=== PATIENT | male | born 1935 | race Caucasian/White ===

== ENCOUNTER 2019-02-12 09:11 | Outpatient (CLI) | payer MEDICARE, SELFPAY ==
[2019-02-12 12:35] LABS: Alanine Aminotransferase 16 U/L (4-50); Albumin Level 3.8 g/dL (3.5-5.1); Alkaline Phosphatase 36 U/L (38-126); Aspartate Amino Transferase 27 U/L (17-59); Bilirubin,Total 0.6 mg/dL (0.2-1.3); Blood Urea Nitrogen 30 mg/dL (9-20); Calcium 9.3 mg/dL (8.4-10.2); Carbon Dioxide 26 mmol/L (22-30); Chloride 107 mmol/L (98-107); Cholesterol 153 mg/dL (0-200); Estimated Glomerular Filt Rate 53; Glucose 92 mg/dL (75-110); HDL Direct 37 mg/dL; Sodium 143 mmol/L (137-145); Triglycerides 85 mg/dL (<150)
[2019-02-12 12:46] LABS: LDL Cholesterol Direct 102 mg/dL
[2019-02-12 12:50] LABS: Vitamin D 25 Hydroxy 65.6 ng/mL
[2019-02-12 13:05] LABS: Prostate Specific Antigen 2.1 ng/mL (< OR = 4.0)
== END 2019-02-12 09:12 | disposition home or self-care (01) ==
LOC: ANHVADLAB 09:13
PROVIDERS: PCP Internal Medicine; Visit Provider Nurse Practitioner
DX: E78.5 Hyperlipidemia, unspecified (principal); C61 Malignant neoplasm of prostate; E55.9 Vitamin D deficiency, unspecified; E03.9 Hypothyroidism, unspecified; I10 Essential (primary) hypertension
CPT/HCPCS: 36415; 80048; 80061; 80076; 82306; 84153; 84443

== ENCOUNTER 2019-12-14 08:01 | Outpatient (CLI) | payer MEDICARE, SELFPAY ==
[2019-12-14 08:42] LABS: Potassium 4.6 mmol/L (3.4-5.0)
[2019-12-14 08:44] LABS: Alanine Aminotransferase 18 U/L (4-50); Alkaline Phosphatase 34 U/L (38-126); Anion Gap 6 mmol/L (8-16); Aspartate Amino Transferase 30 U/L (17-59); Bilirubin,Total 0.8 mg/dL (0.2-1.3); Blood Urea Nitrogen 28 mg/dL (9-20); Calcium 9.2 mg/dL (8.4-10.2); Carbon Dioxide 28 mmol/L (22-30); Chloride 108 mmol/L (98-107); Cholesterol 143 mg/dL (0-200); Estimated Glomerular Filt Rate 48; Glucose 101 mg/dL (75-110); HDL Direct 36 mg/dL; Sodium 142 mmol/L (137-145); Triglycerides 82 mg/dL (<150)
[2019-12-14 08:56] LABS: LDL Cholesterol Direct 90 mg/dL
[2019-12-14 09:13] LABS: Vitamin D 25 Hydroxy 75.6 ng/mL
== END 2019-12-14 08:02 | disposition home or self-care (01) ==
PROVIDERS: PCP Internal Medicine; Visit Provider Nurse Practitioner
DX: E78.5 Hyperlipidemia, unspecified (principal); E55.9 Vitamin D deficiency, unspecified; I10 Essential (primary) hypertension
CPT/HCPCS: 36415; 80048; 80061; 80076; 82306

== ENCOUNTER → 2020-05-23 08:46 | Outpatient (REF) | payer MEDICARE, SELFPAY | LOC: ANHLAB 08:46 | PROVIDERS: PCP Internal Medicine; Visit Provider Nurse Practitioner | DX: C44.719 Basal cell carcinoma of skin of left lower limb, including hip (principal); C44.729 Squamous cell carcinoma of skin of left lower limb, including hip | CPT/HCPCS: 88305; 88331 ==

== ENCOUNTER 2020-08-12 06:59 | Outpatient (CLI) | payer MEDICARE, SELFPAY ==
[2020-08-12 07:44] LABS: Anion Gap 9 mmol/L (8-16); Blood Urea Nitrogen 29 mg/dL (9-20); Calcium 9.2 mg/dL (8.4-10.2); Carbon Dioxide 23 mmol/L (22-30); Chloride 112 mmol/L (98-107); Cholesterol 144 mg/dL (0-200); Estimated Glomerular Filt Rate 48; Glucose 94 mg/dL (75-110); HDL Direct 39 mg/dL; Sodium 144 mmol/L (137-145); Triglycerides 71 mg/dL (<150)
[2020-08-12 07:55] LABS: LDL Cholesterol Direct 78 mg/dL
== END 2020-08-12 07:00 | disposition home or self-care (01) ==
LOC: ANHLAB 07:02
PROVIDERS: PCP Internal Medicine; Visit Provider Internal Medicine
DX: E03.9 Hypothyroidism, unspecified (principal); I10 Essential (primary) hypertension; E78.5 Hyperlipidemia, unspecified
CPT/HCPCS: 36415; 80048; 80061; 84443

== ENCOUNTER 2021-02-15 07:18 | Outpatient (CLI) | payer MEDICARE, SELFPAY ==
[2021-02-15 07:55] LABS: Alanine Aminotransferase 18 U/L (4-50); Albumin Level 4.2 g/dL (3.5-5.1); Alkaline Phosphatase 37 U/L (38-126); Anion Gap 8 mmol/L (8-16); Aspartate Amino Transferase 27 U/L (17-59); Bilirubin,Total 0.5 mg/dL (0.2-1.3); Blood Urea Nitrogen 27 mg/dL (9-20); Calcium 9.2 mg/dL (8.4-10.2); Carbon Dioxide 23 mmol/L (22-30); Chloride 107 mmol/L (98-107); Cholesterol 167 mg/dL (0-200); Estimated Glomerular Filt Rate 52; Glucose 97 mg/dL (65-110); HDL Direct 40 mg/dL; Potassium 4.1 mmol/L (3.4-5.0); Sodium 138 mmol/L (137-145); Triglycerides 88 mg/dL (<150)
[2021-02-15 08:05] LABS: LDL Cholesterol Direct 99 mg/dL
[2021-02-15 08:25] LABS: Prostate Specific Antigen 3.5 ng/mL (< OR = 4.0)
[2021-02-15 08:51] LABS: Vitamin D 25 Hydroxy 70.6 ng/mL
== END 2021-02-15 07:19 | disposition home or self-care (01) ==
PROVIDERS: PCP Internal Medicine; Visit Provider Internal Medicine
DX: N18.30 Chronic kidney disease, stage 3 unspecified (principal); E55.9 Vitamin D deficiency, unspecified; E78.5 Hyperlipidemia, unspecified; E03.9 Hypothyroidism, unspecified; Z85.46 Personal history of malignant neoplasm of prostate
CPT/HCPCS: 36415; 80053; 80061; 82306; 84153; 84443

== ENCOUNTER → 2021-03-07 15:02 | Outpatient (REF) | payer MEDICARE, SELFPAY | LOC: ANHLAB 15:02 | PROVIDERS: PCP Internal Medicine; Visit Provider Nurse Practitioner | DX: L72.0 Epidermal cyst (principal) | CPT/HCPCS: 88304 ==

== ENCOUNTER 2021-04-06 08:00 | Outpatient (CLI) | payer MEDICARE, SELFPAY | END 2021-04-06 08:01 | disposition home or self-care (01) | LOC: ANHLAB 08:03 | PROVIDERS: PCP Internal Medicine; Visit Provider Nurse Practitioner | DX: E03.9 Hypothyroidism, unspecified (principal) | CPT/HCPCS: 36415; 84443 ==

== ENCOUNTER 2021-08-24 07:12 | Outpatient (CLI) | payer MEDICARE, SELFPAY ==
[2021-08-24 07:55] LABS: Alanine Aminotransferase 16 U/L (6-50); Albumin Level 3.8 g/dL (3.5-5.1); Alkaline Phosphatase 36 U/L (38-126); Anion Gap 5 mmol/L (8-16); Aspartate Amino Transferase 30 U/L (17-59); Bilirubin,Total 0.6 mg/dL (0.2-1.3); Blood Urea Nitrogen 29 mg/dL (9-20); Calcium 8.7 mg/dL (8.4-10.2); Carbon Dioxide 25 mmol/L (22-30); Chloride 110 mmol/L (98-107); Cholesterol 164 mg/dL (0-200); Estimated Glomerular Filt Rate 48; Glucose 103 mg/dL (65-110); HDL Direct 38 mg/dL; Potassium 4.1 mmol/L (3.4-5.0); Sodium 140 mmol/L (137-145); Triglycerides 75 mg/dL (<150)
[2021-08-24 08:19] LABS: LDL Cholesterol Direct 94 mg/dL
[2021-08-24 08:36] LABS: Prostate Specific Antigen 2.4 ng/mL (< OR = 4.0)
== END 2021-08-24 07:13 | disposition home or self-care (01) ==
LOC: ANHLAB 07:16
PROVIDERS: PCP Internal Medicine; Visit Provider Nurse Practitioner
DX: N18.30 Chronic kidney disease, stage 3 unspecified (principal); E78.5 Hyperlipidemia, unspecified; C61 Malignant neoplasm of prostate; E03.9 Hypothyroidism, unspecified
CPT/HCPCS: 36415; 80053; 80061; 84153; 84443

== ENCOUNTER 2022-06-19 09:27 | Outpatient (CLI) | payer MEDICARE, SELFPAY ==
[2022-06-19 10:09] LABS: Alanine Aminotransferase 20 U/L (6-50); Albumin Level 4.3 g/dL (3.5-5.1); Alkaline Phosphatase 36 U/L (38-126); Anion Gap 5 mmol/L (8-16); Aspartate Amino Transferase 28 U/L (17-59); Bilirubin,Total 0.9 mg/dL (0.2-1.3); Blood Urea Nitrogen 30 mg/dL (9-20); Carbon Dioxide 27 mmol/L (22-30); Chloride 107 mmol/L (98-107); Cholesterol 185 mg/dL (0-200); Estimated Glomerular Filt Rate 52; Glucose 98 mg/dL (65-110); HDL Direct 38 mg/dL; Potassium 4.5 mmol/L (3.4-5.0); Sodium 139 mmol/L (137-145); Triglycerides 112 mg/dL (<150)
[2022-06-19 10:21] LABS: LDL Cholesterol Direct 110 mg/dL
[2022-06-19 10:30] LABS: Vitamin D 25 Hydroxy 92.6 ng/mL
[2022-06-19 10:42] LABS: Prostate Specific Antigen 2.7 ng/mL (< OR = 4.0)
== END 2022-06-19 09:28 | disposition home or self-care (01) ==
PROVIDERS: PCP Family Medicine; Visit Provider Nurse Practitioner
DX: C61 Malignant neoplasm of prostate (principal); N18.30 Chronic kidney disease, stage 3 unspecified; E78.5 Hyperlipidemia, unspecified; E03.9 Hypothyroidism, unspecified; Z13.21 Encounter for screening for nutritional disorder
CPT/HCPCS: 36415; 80053; 80061; 82306; 84153; 84443; G0103

== ENCOUNTER 2023-05-02 10:47 | Outpatient (CLI) | payer MEDICARE, SELFPAY ==
[2023-05-02 11:40] LABS: Basophils Absolute Auto 0.1 K/mm3 (0.0-0.1); Basophils Percent Auto 0.7 % (0.2-1.2); Eosinophils Absolute Auto 0.1 K/mm3 (0-0.3); Eosinophils Percent Auto 1.9 % (0-4.4); Hematocrit 38.9 % (42.0-52.0); Immature Granulocyte Absolute 0.03 K/mm3 (0.00-0.031); Immature Granulocyte Percent A 0.4 % (0-0.5); Lymphocytes Absolute Auto 1.39 K/mm3 (0.9-3.2); Lymphocytes Percent Auto 20.2 % (18.3-44.2); Mean Corpuscular HGB Conc 30.8 g/dl (32-36); Mean Corpuscular Hemoglobin 30.8 pg (26-34); Monocytes Absolute Auto 0.7 K/mm3 (0.1-0.6); Monocytes Percent Auto 9.7 % (2.6-8.5); Neutrophils Absolute Auto 4.6 K/mm3 (1.3-6.7); Neutrophils Percent Auto 67.1 % (45.5-73.1); Platelet Count Result 243 k/mm3 (150-375); Red Blood Count 3.89 M/mm3 (4.6-6.20); Red Cell Distribution Width 14.7 % (11.5-14.5); White Blood Count 6.9 K/mm3 (4.5-10.0)
[2023-05-02 12:01] LABS: Alanine Aminotransferase 13 U/L (6-50); Albumin Level 4.2 g/dL (3.5-5.1); Alkaline Phosphatase 38 U/L (38-126); Anion Gap 10 mmol/L (8-16); Aspartate Amino Transferase 24 U/L (17-59); Bilirubin,Total 0.7 mg/dL (0.2-1.3); Blood Urea Nitrogen 69 mg/dL (9-20); Calcium 9.2 mg/dL (8.4-10.2); Carbon Dioxide 22 mmol/L (22-30); Chloride 115 mmol/L (98-107); Estimated Glomerular Filt Rate 11; Glucose 93 mg/dL (65-110); Potassium 4.7 mmol/L (3.4-5.0); Sodium 147 mmol/L (137-145)
[2023-05-02 12:57] LABS: Free T4 Free Thyroxine 0.85 ng/mL (0.78-2.19)
== END 2023-05-02 10:48 | disposition home or self-care (01) ==
LOC: ANHLAB 10:50
PROVIDERS: PCP Nurse Practitioner; Visit Provider Nurse Practitioner
DX: E03.9 Hypothyroidism, unspecified (principal); E78.1 Pure hyperglyceridemia; I10 Essential (primary) hypertension; Z85.46 Personal history of malignant neoplasm of prostate; Z91.199 Patient's noncompliance with other medical treatment and regimen due to unspecified reason; E78.5 Hyperlipidemia, unspecified; E55.9 Vitamin D deficiency, unspecified
CPT/HCPCS: 36415; 80053; 84439; 84443; 85025

== ENCOUNTER 2023-06-01 07:49 | Outpatient (CLI) | payer MEDICARE, SELFPAY ==
--- NOTE | ~2023-06-01 | US_ITS ---
US renal BI DATE: 06/01/2023 08:17 INDICATION: Acute renal failure TECHNIQUE: Real-time imaging of kidneys and urinary bladder COMPARISON: No prior examinations are available from PACS at this time. FINDINGS: There is prominent bilateral hydronephrosis. There is thinning of the renal cortices. Trabeculation and diverticulum formation the bladder is suggested. No intraluminal bladder mass lesio n is evident. IMPRESSION: Prominent bilateral hydronephrosis, bilateral renal atrophy Urinary bladder trabeculation, diverticulum formation Reviewed, dictated and finalized at [facility]. Reviewed, dictated and finalized at location A.
== END 2023-06-01 07:50 ==
LOC: MICIMG 07:50
PROVIDERS: PCP Nurse Practitioner; Visit Provider Internal Medicine Nephrology
DX: N17.9 Acute kidney failure, unspecified (principal); N13.30 Unspecified hydronephrosis; N26.1 Atrophy of kidney (terminal); N32.89 Other specified disorders of bladder
CPT/HCPCS: 76775

== ENCOUNTER 2023-06-03 09:17 | Inpatient (IN) | payer MEDICARE, SELFPAY ==
[2023-06-03] VITALS (27 sets, daily range): BP systolic 149–185; BP diastolic 73–96; PULSE 75–88; RESP 10–20; TEMP 36.3–36.8; O2SAT 99–100; BMI 25.1
--- NOTE | ~2023-06-03 | MR_ITS ---
EXAMINATION: MRA brain wo con DATE: 06/06/2023 11:00 INDICATION: Left hemiparesis. Transient ischemic attack. TECHNIQUE: Magnetic resonance angiography (MRA) of the brain was performed without intravenous contra st with T1-weighted SPGR by the 3D [id number] technique. Maximum intensity projection 3D-reconstr uctions were obtained. COMPARISON: Head CT 06/05/2023 FINDINGS: The vertebral arteries are codominant. There is no significant stenosis of basilar artery or the post erior cerebral arteries. Left posterior communicator artery is normal. A right posterior communicatin g artery is not identified. There is no significant stenosis of the intracranial internal carotid art eries or anterior or middle cerebral arteries. Anterior communicating artery is normal. There is no a neurysm. IMPRESSION: 1. Normal MRA. Reviewed, dictated and finalized at location A. IMPRESSION: 1. Normal MRA.
--- NOTE | ~2023-06-03 | MR_ITS ---
EXAMINATION: MR brain/brain stem wo con DATE: 06/06/2023 11:00 INDICATION: Stroke. TECHNIQUE: Magnetic resonance imaging (MRI) of the brain and brainstem was performed without intraven ous contrast. COMPARISON: Head CT 06/05/2023 FINDINGS: There are scattered areas of nonspecific increased T2-weighted signal intensity in the cere bral white matter. There is no intracranial hemorrhage, acute infarction, or abnormal intracranial ma ss lesion. The ventricles are normal in size. The orbits are normal. The paranasal sinuses are clear. The mastoid air cells are normal. IMPRESSION: 1. Extensive nonspecific cerebral white matter disease, which likely represents chronic small vessel ischemic disease. Reviewed, dictated and finalized at location A.
--- NOTE | ~2023-06-03 | CT_ITS ---
EXAMINATION: CT brain wo con DATE: 06/05/2023 16:31 INDICATION: Stroke. TECHNIQUE: Computed tomography (CT) of the head was performed without intravenous contrast. The mA wa s adjusted according to patient size. Iterative reconstruction technique was employed. The dose-lengt h product was 605.33 mGy-cm. COMPARISON: Head CT 06/05/2023 at 2:48 PM FINDINGS: There is no intracranial hemorrhage, acute infarction, or abnormal intracranial mass lesion . The ventricles are normal in size. The orbits are normal. There is mild mucosal thickening in the p aranasal sinuses. The mastoid air cells are normal. There is cerumen in left external auditory canal. There is a 7 mm subcutaneous cyst in left cheek. IMPRESSION: 1. Unchanged extensive nonspecific cerebral white matter disease, which likely represents chronic sma ll vessel ischemic disease. Reviewed, dictated and finalized at location A. IMPRESSION: 1. Unchanged extensive nonspecific cerebral white matter disease, which likely represents chronic small vessel ischemic disease.
--- NOTE | ~2023-06-03 | US_ITS ---
EXAMINATION: US renal BI DATE: 06/04/2023 10:11 INDICATION: Acute on chronic kidney insufficiency. Hydronephrosis. TECHNIQUE: Multiple ultrasound grayscale images of the kidneys were obtained. COMPARISON: 06/01/2023 FINDINGS: The right kidney measures 10.3 x 4.5 x 4.4 cm. The left kidney measures 11.3 x 4.4 x 4.3 cm. The kidn eys demonstrate normal echogenicity with diffuse bilateral mild cortical thinning. Unchanged 7 mm ane choic cyst at the periphery of the right kidney. Slight interval decrease in the previously moderate, now mild to moderate bilateral hydronephrosis. There is no hydronephrosis in either kidney. No ston es identified. The bladder is decompressed around a Ho catheter which limits evaluation.. IMPRESSION: 1. Slight improvement in now mild to moderate bilateral hydronephrosis. 2. Bladder decompressed with a Ho catheter which limits evaluation. Reviewed, dictated and finalized at location B.
--- NOTE | ~2023-06-03 | US_ITS ---
EXAMINATION: US carotid duplex BI DATE: 06/06/2023 13:25 INDICATION: Transient ischemic episode with left-sided neurologic deficits. TECHNIQUE: Grayscale, color Doppler, and pulsed Doppler images of the cervical carotid arteries were obtained. The degree of vessel stenosis is placed in one of the following categories: normal, <50%, 5 0-69%, >=70% but less than near-occlusion, near-occlusion, or total occlusion. Note that percent sten osis relative to normal distal artery lumen diameter is indirectly measured from velocity measurement s as described by Edi, et al. Radiology 2003; [id number]. COMPARISON: None. FINDINGS: Incidentally noted 1.6 cm predominantly solid left thyroid nodule which is wider than tall with adan h to ill-defined margins, isoechoic solid component and without echogenic foci (TI-RADS 3, mildly ami picious , FNA if >=2.5 cm, annual followup is >=1.5 cm). RIGHT: The right common carotid artery (CCA) peak systolic velocity (PSV) is 78 cm/s. The right internal car otid artery (ICA) PSV is 82 cm/s. The right ICA end-diastolic velocity (EDV) is 20 cm/s. The right IC A/CCA PSV ratio is 1.1. Grayscale and color Doppler images yield an estimate of <50% diameter reducti on from plaque in the ICA. The external carotid artery (ECA) PSV is 58 cm/s. There is antegrade flow in the right vertebral artery. LEFT: The left CCA PSV is 68 cm/s. The left ICA PSV is 59 cm/s. The left ICA EDV is 20 cm/s. The left ICA/C CA PSV ratio is 0.9. Grayscale and color Doppler images yield an estimate of <50% diameter reduction from plaque in the ICA. The ECA PSV is 75 cm/s. There is antegrade flow in the left vertebral artery. IMPRESSION: 1. <50% stenosis in the right internal carotid artery. 2. <50% stenosis in the left internal carotid artery. 3. 1.6 similar TI RADS 3 left thyroid nodule for which annual follow-up ultrasound would be recommend ed. Reviewed, dictated and finalized at location B. IMPRESSION: 1. <50% stenosis in the right internal carotid artery. 2. <50% stenosis in the left internal carotid artery. 3. 1.6 similar TI RADS 3 left thyroid nodule for which annual follow-up ultraso und would be recommended.
--- NOTE | ~2023-06-03 | XR_ITS ---
EXAMINATION: XR retrograde pyelo w/stent BI DATE: 06/06/2023 14:49 INDICATION: Bilateral internal ureteral stent placement TECHNIQUE: Fluoroscopic images from a bilateral internal ureteral stent placement are submitted for [employer] [employer]. 73 seconds of fluoroscopy time. 58 fluoroscopic images FINDINGS: There are bilateral double-J internal ureteral stent projecting in expected position, with proximal C ope loop at the level of the renal pelvis and distal loop in the pelvis within the bladder lumen. IMPRESSION: 1. Bilateral internal ureteral stent placement. Please refer to real-time procedural findings for d etaana. Reviewed, dictated and finalized at location A. IMPRESSION: 1. Bilateral internal ureteral stent placement. Please refer to real-time pro cedural findings for details.
--- NOTE | ~2023-06-03 | CT_ITS ---
EXAMINATION: CT brain wo con DATE: 06/05/2023 14:52 INDICATION: Acute stroke. Left-sided deficits. TECHNIQUE: Computed tomography (CT) of the head was performed without intravenous contrast. The mA wa s adjusted according to patient size. Iterative reconstruction technique was employed. The dose-lengt h product was 605.33 mGy-cm. COMPARISON: None FINDINGS: There are scattered areas of low attenuation in the cerebral white matter. There is no intr acranial hemorrhage, acute infarction, or abnormal intracranial mass lesion. The ventricles are miah l in size. The orbits are normal. The paranasal sinuses are clear. The mastoid air cells are normal. There is cerumen in left external auditory canal. There is a 7 mm subcutaneous cyst in left cheek. IMPRESSION: 1. Extensive nonspecific cerebral white matter disease, which likely represents chronic small vessel ischemic disease. Reviewed, dictated and finalized at location A.
--- NOTE | ~2023-06-03 | US_ITS ---
EXAMINATION: US renal BI DATE: 06/08/2023 15:51 INDICATION: Elevated creatinine. TECHNIQUE: Multiple ultrasound grayscale images of the kidneys were obtained. COMPARISON: Ultrasound 06/04/23 FINDINGS: The right kidney measures 9.3 x 4.5 x 4.0 cm. The left kidney measures 11.0 x 5.1 x 4.7 cm. The kidne ys demonstrate normal parenchymal echogenicity. There is a 10 mm cyst in the right kidney. There is n o hydronephrosis. The bladder is decompressed by a Ho catheter. IMPRESSION: 1. Normal kidney sizes. No hydronephrosis. Reviewed, dictated and finalized at location E.
--- NOTE | 2023-06-03 09:31 | ED.RECABL ---
HPI - Recheck/Abnormal Lab/Rx General Chief Complaint: Recheck/Abnormal Lab/Rx <Joesph Dodd APRN - Last Filed: 06/03/23 15:51> Stated Complaint: abnormal labs <Joesph Dodd APRN - Last Filed: 06/03/23 15:51> Time Seen by Provider: 06/03/23 09:31 <Joesph Dodd APRN - Last Filed: 06/03/23 15:51> Source: patient <Joesph Dodd APRN - Last Filed: 06/03/23 15:51> Mode of arrival: ambulatory <Joesph Dodd APRN - Last Filed: 06/03/23 15:51> Limitations: no limitations <Joesph Dodd APRN - Last Filed: 06/03/23 15:51> History of Present Illness HPI narrative: Matthew is an 88-year-old male patient presenting to the emergency room today with complaints of possible obstruction in the urinary system. He reports he had a ultrasound done at [facility] on May 31 that showed that he has prominent bilateral hydronephrosis, bilateral renal atrophy, urinary bladder trabeculation, and diverticulum formation. States that - nephrology wanted him to come to the ER for further evaluation and have urology consulted. Reports he was able to urinate prior to arrival to the ER today. Denies any pain currently. <Joesph Dodd APRN - Last Filed: 06/03/23 15:51> Related Data Home Medications: Home Medications Medication Instructions Recorded Confirmed cholecalciferol (vitamin D3) 50 50 mcg PO DAILY 02/23/21 06/03/23 mcg (2,000 unit) capsule geriatric multivitamin-min 1 tablet PO DAILY 05/27/23 06/03/23 fenofibrate nanocrystallized 145 145 mg PO DAILY 06/03/23 06/03/23 mg tablet irbesartan 300 mg tablet 300 mg PO DAILY 06/03/23 06/03/23 <Joesph Dodd APRN - Last Filed: 06/03/23 15:51> Allergies/Adverse Reactions: Allergies Allergy/AdvReac Type Severity Reaction Status Date / Time Penicillins Allergy Unknown Unknown Verified 06/03/23 13:41 Sulfa (Sulfonamide Allergy Rash Verified 06/03/23 13:41 Antibiotics) <Joesph Dodd APRN - Last Filed: 06/03/23 15:51> Review of Systems Review of Systems: Pertinent positives per HPI. Patient denies any fever, chills, rash, headache, visual changes, dizziness, cough, runny nose, sore throat, shortness of breath, chest pain, palpitations, nausea, vomiting, diarrhea, constipation, abdominal pain. <Joesph Dodd APRN - Last Filed: 06/03/23 15:51> [facility] Past Medical History Medical History: Medical History (Updated 06/03/23 @ 15:50 by Feli Hendricks PA-C) Chronic anemia Chronic kidney disease Dyslipidemia Hypertension Hypothyroidism Prostate cancer Skin cancer <Joesph Dodd APRN - Last Filed: 06/03/23 15:51> Surgical History Surgical History: Surgical History (Updated 06/03/23 @ 15:29 by Marylin Uriostegui PA-C) History of bilateral inguinal hernia repair History of cholecystectomy History of colonoscopy <Joesph Dodd APRN - Last Filed: 06/03/23 15:51> Family History Family History: Family History Father Patient's father is Family history of alcoholism Hypertension Mother Patient's mother is Son Family history of diabetes mellitus in first degree relative Daughter Family history of diabetes mellitus in first degree relative Father No problems noted. <Joesph Dodd APRN - Last Filed: 06/03/23 15:51> Social History Social History: Social History (Updated 06/03/23 @ 15:29 by Marylin Uriostegui PA-C) Social History: Surrogate medical decision maker: Delicia or Jesus Manuel Aldana, children. Code status: Full code. Smoking status: Never smoker Second hand tobacco smoke exposure: No Alcohol intake: former Alcohol use details: Social alcohol use. Substance use: never Substance use type: does not use Do You Feel Safe in your Home?: Yes Lack of Transportation: No Lack of Food: N
[2023-06-03 10:13] LABS: Basophils Absolute Auto 0.1 K/mm3 (0.0-0.1); Basophils Percent Auto 0.7 % (0.2-1.2); Eosinophils Absolute Auto 0.3 K/mm3 (0-0.3); Eosinophils Percent Auto 3.5 % (0-4.4); Hematocrit 35.6 % (42.0-52.0); Hemoglobin 11.1 g/dL (14.0-18.0); Immature Granulocyte Absolute 0.09 K/mm3 (0.00-0.031); Immature Granulocyte Percent A 1.2 % (0-0.5); Lymphocytes Absolute Auto 2.15 K/mm3 (0.9-3.2); Lymphocytes Percent Auto 28.1 % (18.3-44.2); Mean Corpuscular HGB Conc 31.2 g/dl (32-36); Mean Corpuscular Hemoglobin 30.7 pg (26-34); Mean Corpuscular Volume 98.6 fl (80-100); Mean Platelet Volume 11.5 fl (7.4-10.4); Monocytes Absolute Auto 0.8 K/mm3 (0.1-0.6); Monocytes Percent Auto 10.6 % (2.6-8.5); Neutrophils Absolute Auto 4.3 K/mm3 (1.3-6.7); Neutrophils Percent Auto 55.9 % (45.5-73.1); Platelet Count Result 278 k/mm3 (150-375); Red Blood Count 3.61 M/mm3 (4.6-6.20); Red Cell Distribution Width 15.3 % (11.5-14.5); White Blood Count 7.7 K/mm3 (4.5-10.0)
[2023-06-03 10:33] LABS: Alanine Aminotransferase 14 U/L (6-50); Alkaline Phosphatase 40 U/L (38-126); Anion Gap 11 mmol/L (4-12); Aspartate Amino Transferase 24 U/L (17-59); Bilirubin,Total 0.9 mg/dL (0.2-1.3); Blood Urea Nitrogen 74 mg/dL (9-20); Calcium 8.9 mg/dL (8.4-10.2); Carbon Dioxide 18 mmol/L (22-30); Chloride 112 mmol/L (98-107); Estimated CRCL calculation 9 ml/min; Estimated Glomerular Filt Rate 11; Glucose 91 mg/dL (65-110); Potassium 4.5 mmol/L (3.4-5.0); Sodium 141 mmol/L (137-145)
[2023-06-03 10:35] LABS: Add Urine Microscopic? YES; Appearance Urine Clear (Clear); Bacteria Urine None Seen /hpf; Bilirubin Urine Negative (Negative); Blood Urine 2+ (Negative); Color Urine Yellow (Yellow); Glucose Urine UA Negative (Negative); Ketones Urine Negative (Negative); Leukocyte Esterase Ur Negative LEU/UL (Negative); Nitrate Urine Negative (Negative); Non Pathogenic Casts 0-2; Protein Urine Negative (Negative); RBC Urine 21-50 /hpf (0-2); Specific Grav Ur 1.009 (1.001-1.035); Squamous Epithelial Cell Urine None Seen /hpf (Few); Urobilinogen Urine 0.2 mg/dL (<2.0); WBC Urine 0-5 /hpf (0-3)
--- NOTE | 2023-06-03 13:23 | ADMGEN ---
This patient, Matthew Aldana, was admitted to [facility] Room 306-01. Patient/family oriented to hospital policies and general routines including ID bracelet, bed and alarms, visiting hours, pain management, procedures, bathroom and other care routines, personal items, smoking policy, room service/diet, and visiting hours. Information on how to activate the Rapid Response Team has been discussed. Patient/Family are encouraged to report perceived risks to care and to ask questions if they do not understand what they are told or what they should do.
--- NOTE | 2023-06-03 13:48 | PM.IMHP ---
H&P: HPI History of Present Illness Date/Time: 06/03/23 13:50 Chief Complaint: Abnormal labs. Narrative: This is an 80-year-old male with hypertension, dyslipidemia, benign prostatic hyperplasia, prostate cancer, hypothyroidism, and chronic kidney disease who presented to the emergency department for evaluation of abnormal labs. The patient provides the following history. Labs drawn about a month ago showed a creatinine of 5.10 which is up from his baseline of 1.30 to 1.40 and he was referred to Nephrology for further workup. Renal ultrasound this past Saturday showed prominent bilateral hydronephrosis and bilateral renal atrophy with urinary bladder trabeculation and diverticula information and he was referred to the ER for further workup. With further questioning he reports getting up frequently to urinate and has noticed a decrease in urine output each time. He has been eating and drinking just fine. He denies recent contrast/dye exposure, new medications, dysuria, gross hematuria, foamy urine, back and abdominal pain, fever, nausea, vomiting, and pruritus. BUN and creatinine today are 74 and 5.00 respectively without significant electrolyte abnormalities or acidosis. Urinalysis showed a small amount of blood and was otherwise benign. Ho catheter inserted in the ED yielded 1500 mL of urine. He is being admitted in this setting for further workup. Review of Systems Review of Systems: 12 systems were reviewed and are negative except for as per HPI. [facility] Past Medical History Medical History (Updated 06/03/23 @ 15:50 by Feli Hendricks PA-C) Chronic anemia Chronic kidney disease Dyslipidemia Hypertension Hypothyroidism Prostate cancer Skin cancer Surgical History Surgical History (Updated 06/03/23 @ 15:29 by Marylin Uriostegui PA-C) History of bilateral inguinal hernia repair History of cholecystectomy History of colonoscopy Family History Family History Father Patient's father is Family history of alcoholism Hypertension Mother Patient's mother is Son Family history of diabetes mellitus in first degree relative Daughter Family history of diabetes mellitus in first degree relative Father No problems noted. Social History Social History (Updated 06/03/23 @ 15:29 by Marylin Uriostegui PA-C) Social History: Surrogate medical decision maker: Delicia or Jesus Manuel Aldana, children. Code status: Full code. Smoking status: Never smoker Second hand tobacco smoke exposure: No Alcohol intake: former Alcohol use details: Social alcohol use. Substance use: never Substance use type: does not use Do You Feel Safe in your Home?: Yes Lack of Transportation: No Lack of Food: Never True Current Housing: I Have Housing Concerned About Future Housing: No Difficulty Paying Gas/Electric Bills: No Difficulty Paying for Meds: No Currently Unemployed: No Education: Bachelor's Degree Difficulty w/ Childcare or Family Care: YES Spiritual care concerns: No Meds Home Medications and Allergies Home Medications Medication Instructions Recorded Confirmed Type cholecalciferol (vitamin D3) 50 50 mcg PO DAILY 02/23/21 06/03/23 History mcg (2,000 unit) capsule amlodipine 5 mg tablet 5 mg PO DAILY #30 tabs 04/10/23 06/03/23 Rx geriatric multivitamin-min 1 tablet PO DAILY 05/27/23 06/03/23 History dutasteride 0.5 mg-tamsulosin ER 1 cap PO DAILY #90 caps 06/03/23 06/03/23 Rx 0.4 mg capsule ext.release 24hr mphas fenofibrate nanocrystallized 145 145 mg PO DAILY 06/03/23 06/03/23 History mg tablet irbesartan 300 mg tablet 300 mg PO DAILY 06/03/23 06/03/23 History levothyroxine 25 mcg capsule 25 mcg PO DAILY #90 caps 06/03/23 06/03/23 Rx Allergies Allergy/AdvReac Type Severity Reaction Status Date / Time Penicillins Allergy Unknown Unknown Verified 06/03/23 13:41 Sulfa (Key
--- NOTE | 2023-06-03 15:42 | WPDURCON ---
Assessment and Plan Assessment and plan (1) Bilateral hydronephrosis: Code(s): N13.30 - Unspecified hydronephrosis Status: Acute Assessment and Plan: Prominent bilateral hydronephrosis noted on renal ultrasound completed on 06/01/2023 Ho catheter has been placed Will obtain repeat renal ultrasound tomorrow. May need bilateral ureteral stent placement if no significant improvement, will make NPO at midnight in the event this is required. (2) Urinary retention: Code(s): R33.9 - Retention of urine, unspecified Status: Acute Assessment and Plan: Presumably due to bladder outlet obstruction Ho catheter placed today on arrival with 1000 cc urine output Monitor electrolytes closely for postobstructive diuresis Continue Ho catheter (3) Acute on chronic kidney failure: Code(s): N17.9 - Acute kidney failure, unspecified; N18.9 - Chronic kidney disease, unspecified Status: Acute Assessment and Plan: Baseline creatinine appears to be around 1.3. Creatinine is elevated up to 5.1, likely secondary to above Continue to monitor renal function (4) BPH (benign prostatic hyperplasia): Code(s): N40.0 - Benign prostatic hyperplasia without lower urinary tract symptoms Status: Acute Assessment and Plan: He is on maximum medical therapy with dutasteride-tamsulosin Will likely need to consider outlet procedure given retention/hydro (5) Prostate cancer: Code(s): C61 - Malignant neoplasm of prostate Status: Acute Assessment and Plan: Low risk prostate cancer on active surveillance Urology Consult Note HPI Date Seen: 06/03/23 Requesting Physician: Emanuel Olivia MD Primary Care Provider: Brayden Evangelista APRN Consult Narrative Narrative: Matthew Aldana is a 88 year old male with history of BPH s/p TURP many years ago and prostate cancer (most recently seen by Dr. Lima in 2020, has been on active surveillance since 2009 for low risk prostate cancer) who is being seen in consultation for urinary retention. He presented to the emergency department today under the direction of his marketing content coordinator, Dr. Vernon, after he had outpatient labs completed that showed acute kidney injury, creatinine elevated up to 5.1 from baseline 1.3. He was then sent for a renal US which demonstrated prominent bilateral hydronephrosis, bilateral renal atrophy, and urinary bladder trabeculation and diverticulum. On arrival to the ER, bladder scan was completed which only showed 250 cc. Ho catheter was placed with 1000 cc urine output. UA was collected which demonstrated 2+ blood which was likely due to Ho placement and no concerns for infection. His Ho catheter been draining clear yellow urine. The patient is asymptomatic. He states that prior to presentation, he has been voiding without difficulty. He denies straining to void. States his stream has been normal and denies dribbling or overflow incontinence. He has not had suprapubic pain or pressure and denies flank pain. Denies dysuria or hematuria. His creatinine today is 5.0. He is afebrile and his vital signs are stable. Review of Systems Review of Systems: All systems reviewed & are unremarkable except as noted in HPI and below PMFSH Past Medical History Medical History (Updated 06/03/23 @ 15:50 by Feli Hendricks PA-C) Chronic anemia Chronic kidney disease Dyslipidemia Hypertension Hypothyroidism Prostate cancer Skin cancer Surgical History Surgical History (Updated 06/03/23 @ 15:29 by Marylin Uriostegui PA-C) History of bilateral inguinal hernia repair History of cholecystectomy History of colonoscopy Family History Family History Father Patient's father is Family history of alcoholism Hypertension Mother Patient's mother is Son Family history
[2023-06-03 16:11] LABS: Fractional Inspired Oxygen 21 %; HCO3 VBG 17.4 mEq/l (24.0-30.0); PCO2 VBG 31.9 mmHg (42.0-48.0); PO2 VBG 28.9 mmHg (35.0-45.0)
[2023-06-03 16:16] LABS: Device ROOM AIR
[2023-06-03 16:33] LABS: pH VBG 7.355 (7.300-7.400)
[2023-06-04 04:47] VITALS: BP 135/79; PULSE 81; RESP 20; TEMP 36.6; O2SAT 99
[2023-06-04] MEDS: LEVOTHYROXINE SODIUM 25 MCG TABLET PO (06:03)
[2023-06-04 06:42] LABS: Anion Gap 11 mmol/L (4-12); Blood Urea Nitrogen 73 mg/dL (9-20); Calcium 8.5 mg/dL (8.4-10.2); Carbon Dioxide 17 mmol/L (22-30); Chloride 114 mmol/L (98-107); Estimated CRCL calculation 10 ml/min; Estimated Glomerular Filt Rate 12; Glucose 96 mg/dL (65-110); Magnesium 2.1 mg/dL (1.6-2.3); Phosphorus 5.4 mg/dL (2.5-4.5); Potassium 4.4 mmol/L (3.4-5.0); Sodium 142 mmol/L (137-145)
--- NOTE | 2023-06-04 07:07 | WPDUROPN2 ---
Progress Note: A&P Assessment and Plan (1) BPH (benign prostatic hyperplasia): Code(s): N40.0 - Benign prostatic hyperplasia without lower urinary tract symptoms Status: Acute Assessment and Plan: TABATHA on CDK due, in part, to bladder outlet obstruction/BPH leading to urinary retention/incomplete bladder emptying. Bilateral hydronephrosis due to urinary retention+/- bladder wall thickening ( the results from longstanding outlet obstruction) He will definitely need an indwelling catheter into we can evaluate with urodynamics If renal function fails to improve with simple catheter drainage is we can consider bilateral ureteral stent placement. I would prefer to avoid this as eventual removal of the stents, at time, can be difficult So far u/o is excellent and creat. is improving. (2) Bilateral hydronephrosis: Code(s): N13.30 - Unspecified hydronephrosis Status: Acute Subjective Subjective Date/Time Seen: 06/04/23 07:07 Interval history: Comfortable, tolerating catheter, urine clear Review of Systems Review of Systems: All systems reviewed & are unremarkable except as noted in HPI and below Exam Const: General: no acute distress Resp: Effort & Inspection: normal respiratory effort GI: Inspection: non-distended GI Palp: No abdominal tenderness and No Guarding due to palpation present (GI) Auscultation: normal bowel sounds Urinary Catheter: Urinary Catheter: patent and draining and urine clear Objective Data Vital Signs Vital Signs: Vital Signs - 24 hr 06/03/23 09:28 06/03/23 09:28 06/03/23 09:29 Temperature 97.4 F L Pulse Rate 78 80 Respiratory Rate 16 16 Blood Pressure 173/88 H 185/96 H Pulse Oximetry 100 100 100 Oxygen Delivery Room Air 06/03/23 09:30 06/03/23 09:31 06/03/23 09:50 Temperature Pulse Rate 78 80 75 Respiratory Rate 17 12 13 Blood Pressure 173/88 H Pulse Oximetry 100 100 Oxygen Delivery 06/03/23 10:04 06/03/23 10:30 06/03/23 10:31 Temperature Pulse Rate 77 75 76 Respiratory Rate 13 13 14 Blood Pressure 149/82 H Pulse Oximetry Oxygen Delivery 06/03/23 10:45 06/03/23 10:46 06/03/23 11:00 Temperature Pulse Rate 77 78 77 Respiratory Rate 14 12 14 Blood Pressure 150/82 H Pulse Oximetry Oxygen Delivery 06/03/23 11:01 06/03/23 11:15 06/03/23 11:16 Temperature Pulse Rate 77 77 79 Respiratory Rate 14 14 10 L Blood Pressure 151/80 H 150/77 H Pulse Oximetry Oxygen Delivery 06/03/23 11:35 06/03/23 11:59 06/03/23 12:00 Temperature Pulse Rate 78 84 81 Respiratory Rate 13 12 16 Blood Pressure Pulse Oximetry Oxygen Delivery 06/03/23 12:01 06/03/23 12:15 06/03/23 12:30 Temperature Pulse Rate 80 85 84 Respiratory Rate 12 17 12 Blood Pressure 161/77 H Pulse Oximetry Oxygen Delivery 06/03/23 12:31 06/03/23 12:45 06/03/23 12:46 Temperature Pulse Rate 88 83 84 Respiratory Rate 16 12 16 Blood Pressure 160/78 H 165/79 H Pulse Oximetry Oxygen Delivery 06/03/23 13:00 06/03/23 13:01 06/03/23 14:03 Temperature Pulse Rate 81 Respiratory Rate 13 Blood Pressure 159/77 H Pulse Oximetry Oxygen Delivery Room Air 06/03/23 14:00 06/03/23 20:00 06/03/23 21:00 Temperature 97.4 F L 98.3 F Pulse Rate 82 81 Respiratory Rate 16 20 Blood Pressure 154/73 H 149/77 H Pulse Oximetry 100 99 Oxygen Delivery Room Air 06/04/23 04:47 Temperature 98 F Pulse Rate 81 Respiratory Rate 20 Blood Pressure 135/79 Pulse Oximetry 99 Oxygen Delivery Intake/Output Intake/Output: Intake & Output 06/01/23 06/02/23 06/03/23 06/04/23 23:59 23:59 23:59 23:59 Intake Total 240 200 Output Total 2500 1700 Balance -2260 -1500 Meds/Results Medications: Active Medications Generic Name Dose Route Start Last Admin Trade Name Freq PRN Reason Stop Dose Admin Acetaminophen 650 mg 06/03/23 15:39 Acetaminophen 325 Mg
[2023-06-04] MEDS: CHOLECALCIFEROL 1,000 UNITS TABLET 2000 UNITS PO (08:48)
[2023-06-04] MEDS: TAMSULOSIN HCL 0.4 MG CAPSULE PO (08:48)
[2023-06-04] MEDS: DUTASTERIDE 0.5 MG CAPSULE PO (08:48)
[2023-06-04] MEDS: amLODIPine BESYLATE 5 MG TABLET PO (08:49)
[2023-06-04] MEDS: FENOFIBRATE NANOCRYSTALLIZED 145 MG TABLET PO (08:49)
[2023-06-04 09:06] VITALS: O2SAT 99
--- NOTE | 2023-06-04 12:59 | PM.IMPN ---
Progress Note: A&P Assessment and Plan (1) Acute on chronic kidney failure: Code(s): N17.9 - Acute kidney failure, unspecified; N18.9 - Chronic kidney disease, unspecified Status: Acute Assessment and Plan: 06/04/2023: Renal ultrasound from 06/01/2023 showing prominent bilateral hydronephrosis, bilateral renal atrophy. Repeat renal ultrasound shows improvement with now mild to moderate bilateral hydronephrosis Initial BUN 69, creatinine 5.1. BUN 73, creatinine 4.5 today EGFR is 12 Nephrology consulted Continue to hold your Irbesartan (2) Urinary retention: Code(s): R33.9 - Retention of urine, unspecified Status: Acute Assessment and Plan: 06/04/23: Continue Flomax and Avodart (3) Chronic anemia: Code(s): D64.9 - Anemia, unspecified Status: Acute Assessment and Plan: 06/04/2023: Hemoglobin 11.1 (4) Hypertension: Code(s): I10 - Essential (primary) hypertension Status: Acute Assessment and Plan: 06/04/2023: Blood pressure 135/79 to 165/79 Continue amlodipine (5) Hypothyroidism: Code(s): E03.9 - Hypothyroidism, unspecified Status: Acute Assessment and Plan: 06/04/23: TSH 11.5, free T4 0.85 Continue Synthroid (6) Dyslipidemia: Code(s): E78.5 - Hyperlipidemia, unspecified Status: Acute Assessment and Plan: 06/04/2023: Continue fenofibrate Time Spent With Patient Time with patient: 25 - 35 minutes Subjective Date/time seen: 06/04/23 12:59 Interval history: This is an 80-year-old male presented to hospital on 06/02 4 with abnormal labs. Patient had labs drawn about 1 month ago which showed a creatinine of 5.10 which is up from his baseline of 1.3-1.4. He was referred to Nephrology at that time. He had a renal ultrasound this past Saturday showing prominent bilateral hydronephrosis and bilateral renal atrophy with urinary bladder trabeculation. He was referred back to the hospital further workup. Workup in the hospital included a repeat renal ultrasound which showed slight improvement, mild to moderate bilateral hydronephrosis, there was note of an unchanged 7 mm cyst at the periphery of the right kidney. Initial labs shown abnormal white blood cell count of 6.9, hemoglobin 12.0, sodium 147, BUN 69 creatinine 5.10, EGFR 11, TSH was 11.5, free T4 was 0.85. A UA was also performed which showed 2+ protein, 21-50 urine wbc's otherwise normal. On examination today patient is alert oriented x3, lying in. He denies any fever, chills nausea, vomiting, diarrhea, abdominal pain, chest pain, shortness a breath, headache, lightheadedness, dizziness. Nephrology consulted. Review of Systems Review of Systems: All systems reviewed & are unremarkable except as noted in HPI and below Constitutional: Constitutional: Reports as per HPI and Reports no additional constitutional complaints Eyes: Eyes: Reports as per HPI and Reports no additional eye complaints ENT: Reports system reviewed and no additional complaints, except as documented and Reports as per HPI Cardiovascular: Cardiovascular: Reports as per HPI and Reports no additional cardiovascular complaints Respiratory: Respiratory: Reports as per HPI and Reports no additional respiratory complaints Gastrointestinal: Gastrointestinal: Reports as per HPI and Reports no additional gastrointestinal complaints Genitourinary: Genitourinary: Reports no additional male genitourinary complaints and Reports as per HPI Musculoskeletal: Musculoskeletal: Reports no additional musculoskeletal complaints and Reports as per HPI Integumentary/Breasts: Skin/Breast: Reports system reviewed and no additional complaints, except as docu and Reports as per HPI Neurologic: Reports system reviewed and no additional complaints, except as documented and Reports as per HPI Psychiatric: Psychiatric: Reports no additional psychiatric complaints and Reports as per HPI Exam Narrat
[2023-06-04 14:00] VITALS: BP 130/71; PULSE 84; RESP 20; TEMP 36.6; O2SAT 100
[2023-06-04] MEDS: MULTIVITAMINS /C LUTEIN (CENTRUM SILVER) TABLET *BKC 1 TAB PO (16:15)
[2023-06-04 21:15] VITALS: BP 132/58; PULSE 84; RESP 20; TEMP 36.8; O2SAT 99
[2023-06-05 05:15] VITALS: BP 132/74; PULSE 82; RESP 20; TEMP 35.9; O2SAT 98
[2023-06-05 06:10] LABS: Basophils Absolute Auto 0.1 K/mm3 (0.0-0.1); Basophils Percent Auto 0.6 % (0.2-1.2); Eosinophils Absolute Auto 0.3 K/mm3 (0-0.3); Eosinophils Percent Auto 3.3 % (0-4.4); Hematocrit 31.2 % (42.0-52.0); Hemoglobin 9.9 g/dL (14.0-18.0); Immature Granulocyte Absolute 0.08 K/mm3 (0.00-0.031); Lymphocytes Absolute Auto 1.73 K/mm3 (0.9-3.2); Mean Corpuscular HGB Conc 31.7 g/dl (32-36); Mean Corpuscular Hemoglobin 31.2 pg (26-34); Mean Corpuscular Volume 98.4 fl (80-100); Mean Platelet Volume 11.3 fl (7.4-10.4); Monocytes Absolute Auto 0.8 K/mm3 (0.1-0.6); Monocytes Percent Auto 9.7 % (2.6-8.5); Neutrophils Absolute Auto 5.3 K/mm3 (1.3-6.7); Neutrophils Percent Auto 64.4 % (45.5-73.1); Platelet Count Result 238 k/mm3 (150-375); Red Blood Count 3.17 M/mm3 (4.6-6.20); Red Cell Distribution Width 14.9 % (11.5-14.5); White Blood Count 8.2 K/mm3 (4.5-10.0)
[2023-06-05] MEDS: LEVOTHYROXINE SODIUM 25 MCG TABLET PO (06:10)
[2023-06-05 06:24] LABS: Albumin Level 3.5 g/dL (3.5-5.1); Anion Gap 11 mmol/L (4-12); Blood Urea Nitrogen 65 mg/dL (9-20); Calcium 8.6 mg/dL (8.4-10.2); Carbon Dioxide 18 mmol/L (22-30); Chloride 111 mmol/L (98-107); Estimated CRCL calculation 10 ml/min; Estimated Glomerular Filt Rate 12; Glucose 96 mg/dL (65-110); Phosphorus 5.1 mg/dL (2.5-4.5); Potassium 4.3 mmol/L (3.4-5.0); Sodium 140 mmol/L (137-145)
--- NOTE | 2023-06-05 09:19 | WPDUROPN2 ---
Progress Note: A&P Assessment and Plan (1) BPH (benign prostatic hyperplasia): Code(s): N40.0 - Benign prostatic hyperplasia without lower urinary tract symptoms Status: Acute Assessment and Plan: TABATHA on CKD due, in part, to bladder outlet obstruction/BPH leading to urinary retention/incomplete bladder emptying. Bilateral hydronephrosis due to urinary retention+/- bladder wall thickening (the results from longstanding outlet obstruction) Will need to continue with indwelling Ho catheter until outpatient evaluation with urodynamics can be completed May need to consider bilateral ureteral stent placement if renal function fails to improve with catheter drainage; hopefully this can be avoided Urine output remains adequate and creatinine has improved from admission to 4.6 today (2) Bilateral hydronephrosis: Code(s): N13.30 - Unspecified hydronephrosis Status: Acute Assessment and Plan: Renal ultrasound completed 06/04/2023 shows slight improvement with now mild to moderate bilateral hydronephrosis Subjective Subjective Date/Time Seen: 06/05/23 09:19 Interval history: Matthew is feeling well today. He offers no concerns. Ho catheter draining clear yellow urine. Review of Systems Review of Systems: All systems reviewed & are unremarkable except as noted in HPI and below Exam Narrative: General: Awake, alert, comfortable, no acute distress HEENT: Normocephalic, atraumatic, sclerae anicteric Respiratory: Normal respiratory effort, no accessory muscle use Abdomen: Nondistended, soft, nontender : Ho catheter draining clear yellow urine Skin: Normal coloration, warm and dry Neurologic: No focal neuro deficits noted Psychiatric: Appropriate mood and affect, judgment and insight intact Objective Data Vital Signs Vital Signs: Vital Signs - 24 hr 06/04/23 14:00 06/04/23 20:00 06/04/23 21:15 Temperature 97.9 F 98.3 F Pulse Rate 84 84 Respiratory Rate 20 20 Blood Pressure 130/71 132/58 L Pulse Oximetry 100 99 Oxygen Delivery Room Air 06/05/23 05:15 Temperature 96.6 F L Pulse Rate 82 Respiratory Rate 20 Blood Pressure 132/74 Pulse Oximetry 98 Oxygen Delivery Intake/Output Intake/Output: Intake & Output 06/02/23 06/03/23 06/04/23 06/05/23 23:59 23:59 23:59 23:59 Intake Total 240 2564 Output Total 6797 3265 1000 Balance -2260 -701 -1000 Meds/Results Medications: Active Medications Generic Name Dose Route Start Last Admin Trade Name Freq PRN Reason Stop Dose Admin Acetaminophen 650 mg 06/03/23 15:39 Acetaminophen 325 Mg Tablet PO Q6H PRN Mild Pain (1-3) or Fever Amlodipine Besylate 5 mg 06/04/23 09:00 06/04/23 08:49 Amlodipine Besylate 5 Mg Tablet PO 5 mg DAILY CHASIDY Administration Dextrose 12.5 gm 06/03/23 15:39 Dextrose 50% 25 Gm/50 Ml Syringe IV PUSH PRN PRN Hypoglycemia Protocol Dutasteride 0.5 mg 06/04/23 09:00 06/04/23 08:48 Dutasteride 0.5 Mg Capsule PO 0.5 mg QAM CHASIDY Administration Fenofibrate 145 mg 06/04/23 09:00 06/04/23 08:49 Fenofibrate Nanocrystallized 145 Mg Tablet PO 145 mg DAILY CHASIDY Administration Glucagon 1 mg 06/03/23 15:39 Glucagon For Inj 1 Mg Vial IM PRN PRN Hypoglycemia Protocol Glucose 15 gm 06/03/23 15:39 Glucose Oral Gel 15 Gm Of Glucse In 37.5 Gm Tube PO PRN PRN Hypoglycemia Protocol Dextrose 1,000 mls @ 100 mls/hr 06/03/23 15:39 Dextrose 5% 1,000 Ml IVPB PRN PRN Hypoglycemia Protocol Levothyroxine Sodium 25 mcg 06/04/23 06:30 06/05/23 06:10 Levothyroxine Sodium 25 Mcg Tablet PO 25 mcg DAILY@0630 CHASIDY Administration Multivitamins/Minerals 1 tab 06/04/23 09:00 06/04/23 16:15 Multivitamins /C Lutein (Centrum Silver) Tablet *Bkc PO 1 tab DAILY CHASIDY Administration Tamsulosin HCl 0.4 mg 06/04/23 09:00 06/04/23 08:48 Tamsulosin Hcl
[2023-06-05] MEDS: CHOLECALCIFEROL 1,000 UNITS TABLET 2000 UNITS PO (10:05)
[2023-06-05] MEDS: MULTIVITAMINS /C LUTEIN (CENTRUM SILVER) TABLET *BKC 1 TAB PO (10:06)
[2023-06-05] MEDS: TAMSULOSIN HCL 0.4 MG CAPSULE PO (10:06)
[2023-06-05] MEDS: FENOFIBRATE NANOCRYSTALLIZED 145 MG TABLET PO (10:06)
[2023-06-05] MEDS: DUTASTERIDE 0.5 MG CAPSULE PO (10:06)
[2023-06-05] MEDS: amLODIPine BESYLATE 5 MG TABLET PO (10:08)
--- NOTE | 2023-06-05 13:04 | P.PNIM_ITS ---
Progress Note: A&P Assessment and Plan (1) Acute on chronic kidney failure: Code(s): N17.9 - Acute kidney failure, unspecified; N18.9 - Chronic kidney disease, unspecified Status: Acute Assessment and Plan: 06/04/2023: * Renal ultrasound from 06/01/2023 showing prominent bilateral hydronephrosis, bilateral renal atrophy. * Repeat renal ultrasound shows improvement with now mild to moderate bilateral hydronephrosis * Initial BUN 69, creatinine 5.1. * BUN 73, creatinine 4.5 today * EGFR is 12 * Nephrology consulted * Continue to hold your Irbesartan 06/05/2023: * Urology seen patient today and plan is to take patient tomorrow for cystoscopy and bilateral ureteral stent placement pending incident today. * Creatinine any is 4.6, EGFR is 12 * Nephrology on board as well * Continue to hold ARB (2) Urinary retention: Code(s): R33.9 - Retention of urine, unspecified Status: Acute Assessment and Plan: 06/04/23: * Continue Flomax and Avodart 06/05/2023: * No change to current treatment plan (3) Chronic anemia: Code(s): D64.9 - Anemia, unspecified Status: Acute Assessment and Plan: 06/04/2023: * Hemoglobin 11.1 06/05/2023: * No change to current treatment plan (4) Hypertension: Code(s): I10 - Essential (primary) hypertension Status: Acute Assessment and Plan: 06/04/2023: * Blood pressure 135/79 to 165/79 * Continue amlodipine 06/05/2023: * No change to current treatment plan (5) Hypothyroidism: Code(s): E03.9 - Hypothyroidism, unspecified Status: Acute Assessment and Plan: 06/04/23: * TSH 11.5, free T4 0.85 * Continue Synthroid 06/05/2023: * No change to current treatment plan (6) Dyslipidemia: Code(s): E78.5 - Hyperlipidemia, unspecified Status: Acute Assessment and Plan: 06/04/2023: * Continue fenofibrate 06/05/2023: * No change to current treatment plan (7) TIA (transient ischemic attack): Code(s): G45.9 - Transient cerebral ischemic attack, unspecified Status: Acute Assessment and Plan: 06/05/23: * Found patient with left sided weakness, facial droop, slurred speech and eyes deviated to the left. Once patient was back from CT he was back to his baseline, able to move all 4 extremities, and facial features were symmetrical. * NIH score > 25 * CT of head negative for any acute infarct * MRA of the brain without contrast ordered * Troponin negative, BG 129, Last Magnesium 2.1, K+ 4.3 * Start continuous telemetry * EKG shown NSR * ABG essentially unremarkable * Plan for MRI of brain and EEG tomorrow * Neurology consulted * Discussed plan of care with Dr. Peralta (Esol Instructor) * Will get Echo * Urology updated on events from today Time Spent With Patient Time with patient: Greater than 35 minutes (60 minutes) Subjective Date/time seen: 06/05/23 13:04 Interval history: 06/04/23: This is an 80-year-old male presented to hospital on 06/02 4 with abnormal labs. Patient had labs drawn about 1 month ago which showed a creatinine of 5.10 which is up from his baseline of 1.3-1.4. He was referred to Nephrology at that time. He had a renal ultrasound this past Saturday showing prominent bilateral hydronephrosis and bilateral renal atrophy with urinary bladder trabeculation. He was referred back to the hospital further workup. Workup in the hospital included a repeat renal ultrasound which showed slight improvement, mild to moderate bilatera
--- NOTE | 2023-06-05 13:04 | PM.IMPN ---
Progress Note: A&P Assessment and Plan (1) Acute on chronic kidney failure: Code(s): N17.9 - Acute kidney failure, unspecified; N18.9 - Chronic kidney disease, unspecified Status: Acute Assessment and Plan: 06/04/2023: Renal ultrasound from 06/01/2023 showing prominent bilateral hydronephrosis, bilateral renal atrophy. Repeat renal ultrasound shows improvement with now mild to moderate bilateral hydronephrosis Initial BUN 69, creatinine 5.1. BUN 73, creatinine 4.5 today EGFR is 12 Nephrology consulted Continue to hold your Irbesartan 06/05/2023: Urology seen patient today and plan is to take patient tomorrow for cystoscopy and bilateral ureteral stent placement pending incident today. Creatinine any is 4.6, EGFR is 12 Nephrology on board as well Continue to hold ARB (2) Urinary retention: Code(s): R33.9 - Retention of urine, unspecified Status: Acute Assessment and Plan: 06/04/23: Continue Flomax and Avodart 06/05/2023: No change to current treatment plan (3) Chronic anemia: Code(s): D64.9 - Anemia, unspecified Status: Acute Assessment and Plan: 06/04/2023: Hemoglobin 11.1 06/05/2023: No change to current treatment plan (4) Hypertension: Code(s): I10 - Essential (primary) hypertension Status: Acute Assessment and Plan: 06/04/2023: Blood pressure 135/79 to 165/79 Continue amlodipine 06/05/2023: No change to current treatment plan (5) Hypothyroidism: Code(s): E03.9 - Hypothyroidism, unspecified Status: Acute Assessment and Plan: 06/04/23: TSH 11.5, free T4 0.85 Continue Synthroid 06/05/2023: No change to current treatment plan (6) Dyslipidemia: Code(s): E78.5 - Hyperlipidemia, unspecified Status: Acute Assessment and Plan: 06/04/2023: Continue fenofibrate 06/05/2023: No change to current treatment plan (7) TIA (transient ischemic attack): Code(s): G45.9 - Transient cerebral ischemic attack, unspecified Status: Acute Assessment and Plan: 06/05/23: Found patient with left sided weakness, facial droop, slurred speech and eyes deviated to the left. Once patient was back from CT he was back to his baseline, able to move all 4 extremities, and facial features were symmetrical. NIH score > 25 CT of head negative for any acute infarct MRA of the brain without contrast ordered Troponin negative, BG 129, Last Magnesium 2.1, K+ 4.3 Start continuous telemetry EKG shown NSR ABG essentially unremarkable Plan for MRI of brain and EEG tomorrow Neurology consulted Discussed plan of care with Dr. Peralta (Handicapped Teacher) Will get Echo Urology updated on events from today Time Spent With Patient Time with patient: Greater than 35 minutes (60 minutes) Subjective Date/time seen: 06/05/23 13:04 Interval history: 06/04/23: This is an 80-year-old male presented to hospital on 06/02 4 with abnormal labs. Patient had labs drawn about 1 month ago which showed a creatinine of 5.10 which is up from his baseline of 1.3-1.4. He was referred to Nephrology at that time. He had a renal ultrasound this past Saturday showing prominent bilateral hydronephrosis and bilateral renal atrophy with urinary bladder trabeculation. He was referred back to the hospital further workup. Workup in the hospital included a repeat renal ultrasound which showed slight improvement, mild to moderate bilateral hydronephrosis, there was note of an unchanged 7 mm cyst at the periphery of the right kidney. Initial labs shown abnormal white blood cell count of 6.9, hemoglobin 12.0, sodium 147, BUN 69 creatinine 5.10, EGFR 11, TSH was 11.5, free T4 was 0.85. A UA was also performed which showed 2+ protein, 21-50 urine wbc's otherwise normal. On examination today patient is alert oriented x3, lying in. He denies any fever, chills nausea, vomiting, diarrhea, abdominal pain, chest pain, shortness a b
--- NOTE | 2023-06-05 13:15 | PM.CNNEP ---
Assessment and Plan Assessment and plan (1) TABATHA (acute kidney injury): Code(s): N17.9 - Acute kidney failure, unspecified Status: Acute Assessment and Plan: noted by outpatient labs done in April 2023 repeat labs on admission similar with creatinine of 5.0mg/dl presumably secondary to obstructive uropathy/urinary retention based on outpatient renal ultrasound s/p rodriguez catheter placement only mild improvement in renal function noted follow repeat labs and UOP (2) Stage 3a chronic kidney disease: Code(s): N18.31 - Chronic kidney disease, stage 3a Status: Chronic Assessment and Plan: baseline creatinine running around 1.3 - 1.4mg/dl presumably due to hypertension, vascular disease, BPH, and age-related change (3) Bilateral hydronephrosis: Code(s): N13.30 - Unspecified hydronephrosis Status: Acute Assessment and Plan: as noted by outpatient renal ultrasound s/p rodriguez catheter placement good urine output noted no signifincat improvement in renal function to date Urology following noted plans for cysto and bilateral ureteral stent placement continue current therapy (4) Chronic anemia: Code(s): D64.9 - Anemia, unspecified Status: Chronic Assessment and Plan: possibly related to TABATHA/CKD follow trend of H/H (5) Hypertension: Code(s): I10 - Essential (primary) hypertension Status: Chronic Assessment and Plan: reasonable control at this time follow trend of hemodynamics I will continue follow patient with you while he remains hospitalized and make further recommendations as deemed necessary Thank you for allowing me to participate in care of this patient. History of Present Illness Reason for Consult Consult date: 06/05/23 Reason for consult: acute renal failure Chief Complaint Chief complaint: CKD/Urinary Retention/Outlet Obstruction History of Present Illness Narrative: The patient is an 80-year-old male with a past medical history as outlined below who presented to [facility] Emergency Room for further evaluation of an abnormal renal ultrasound. The patient had labs done about a month ago that showed his creatinine had jumped to 5.1 mg/dL from a baseline creatinine around 1.3-1.4 mg/dL. He was referred to myself for further evaluation of this significant change in his renal function. As part of his workup and evaluation for this presumably acute kidney injury/acute renal failure, he had a renal ultrasound done which demonstrated prominent bilateral hydronephrosis. On the assumption that obstructive uropathy was the etiology of his worsened renal function/ creatinine, he was referred to the ER for further assessment. On outpatient evaluation of his renal dysfunction, he did report that he been getting up frequently to urinate and noticed that each time he went the urine output was less. He reports he has been eating and drinking just fine and denies any other urinary symptoms. Interestingly, despite his significant rise in BUN and creatinine by outpatient labs, he had no critical electrolyte abnormalities and then no evidence of uremia. Workup and evaluation emergency room demonstrated the patient to be hemodynamically stable and in no acute distress. Repeat labs once again demonstrated his renal dysfunction with a BUN of 74 and a creatinine of 5.0 mg/dL, respectively, with no significant electrolyte abnormalities noted. His urinalysis was essentially benign aside for some small amount of blood. Given the renal ultrasound findings, a Rodriguez catheter was placed in the ER and yielded almost 1500 cc of urine following placement. Based on the assumption that obstructive uropathy was the cause of his renal dysfunction, urology was consulted and he was subsequently admitted to the hospital for further evaluation and therapy. Since his admission, he continues to make fairly good urine output with the Fo
[2023-06-05 14:43] LABS: Glucose Point of Care 129 mg/dl (65-105)
--- NOTE | 2023-06-05 15:06 | PC.NURSE ---
Hospitalist called this RN to the bedside to evaluate change of condition in pt. Pt found slumping to left, drooling, diaphoretic, unable to upright in chair, unable to communicate clearly. Code stroke called. POC glucose 129, vitals as charted. NIHSS>25. PT lifted and placed back into chair. Pt near unresponsive, minimal verbal communication, slurred speech, unable to keep eyes open, right gaze deviation, pin point pupils. Pt taken to stat head CT. On way to CT, pt lifted left hand and raised his pointer finger. Pt able to communicate clearly, smile equally, equal senior ecologist and push/pulls. Provider aware. Neuro consulted. Received orders for Q4H neurovascular checks, tele, stat EKG; other labs/tests/ordered. Will continue to monitor.
--- NOTE | 2023-06-05 15:10 | ECG_ITS ---
Measurements Intervals [place] Rate: 82 P: 24 NM: 161 QRS: 9 QRSD: 97 T: 41 QT: 338 QTc: 377 Interpretive Statements SINUS RHYTHM NORMAL ECG SEE SCANNED COPY FOR SIGNATURE MTDD
--- NOTE | 2023-06-05 15:16 | WPDNEURCNPN ---
Consult date: 06/05/23 HPI: Matthew Aldana is a 88 year old male [facility] Past Medical History Medical History (Updated 06/03/23 @ 15:50 by Feli Hendricks PA-C) Chronic anemia Chronic kidney disease Dyslipidemia Hypertension Hypothyroidism Prostate cancer Skin cancer Surgical History Surgical History (Updated 06/03/23 @ 15:29 by Marylin Uriostegui PA-C) History of bilateral inguinal hernia repair History of cholecystectomy History of colonoscopy Family History Family History Father Patient's father is Family history of alcoholism Hypertension Mother Patient's mother is Son Family history of diabetes mellitus in first degree relative Daughter Family history of diabetes mellitus in first degree relative Father No problems noted. Social History Social History (Updated 06/03/23 @ 15:29 by Marylin Uriostegui PA-C) Social History: Surrogate medical decision maker: Delicia or Jesus Manuel Katya, gloria. Code status: Full code. Smoking status: Never smoker Second hand tobacco smoke exposure: No Alcohol intake: former Alcohol use details: Social alcohol use. Substance use: never Substance use type: does not use Do You Feel Safe in your Home?: Yes Lack of Transportation: No Lack of Food: Never True Current Housing: I Have Housing Concerned About Future Housing: No Difficulty Paying Gas/Electric Bills: No Difficulty Paying for Meds: No Currently Unemployed: No Education: Bachelor's Degree Difficulty w/ Childcare or Family Care: YES Spiritual care concerns: No Meds Home Medications and Allergies Home Medications Medication Instructions Recorded Confirmed Type cholecalciferol (vitamin D3) 50 50 mcg PO DAILY 02/23/21 06/03/23 History mcg (2,000 unit) capsule amlodipine 5 mg tablet 5 mg PO DAILY #30 tabs 04/10/23 06/03/23 Rx geriatric multivitamin-min 1 tablet PO DAILY 05/27/23 06/03/23 History dutasteride 0.5 mg-tamsulosin ER 1 cap PO DAILY #90 caps 06/03/23 06/03/23 Rx 0.4 mg capsule ext.release 24hr mphas fenofibrate nanocrystallized 145 145 mg PO DAILY 06/03/23 06/03/23 History mg tablet irbesartan 300 mg tablet 300 mg PO DAILY 06/03/23 06/03/23 History levothyroxine 25 mcg capsule 25 mcg PO DAILY #90 caps 06/03/23 06/03/23 Rx Allergies Allergy/AdvReac Type Severity Reaction Status Date / Time Penicillins Allergy Unknown Unknown Verified 06/03/23 13:41 Sulfa (Sulfonamide Allergy Rash Verified 06/03/23 13:41 Antibiotics) Vital Signs Vital Signs - 24 hr 06/04/23 20:00 06/04/23 21:15 06/05/23 05:15 Temperature 36.8 C 35.9 C L Pulse Rate 84 82 Respiratory Rate 20 20 Blood Pressure 132/58 L 132/74 Pulse Oximetry 99 98 Oxygen Delivery Room Air Results Labs 06/05/23 05:31 06/05/23 05:31 Labs: Short CBC 06/05/23 Range/Units 05:31 WBC 8.2 (4.5-10.0) K/mm3 Hgb 9.9 L (14.0-18.0) g/dL Hct 31.2 L (42.0-52.0) % Plt Count 238 (150-375) k/mm3 BMP 06/05/23 05:31 Sodium 140 Potassium 4.3 Chloride 111 H Carbon Dioxide 18 L BUN 65 H Creatinine 4.60 H Glucose 96 Calcium 8.6 Liver Function 06/05/23 Range/Units 05:31 Albumin 3.5 (3.5-5.1) g/dL
--- NOTE | 2023-06-05 15:18 | WPDNEURCNPN ---
Assessment and Plan Assessment and plan (1) BPH (benign prostatic hyperplasia): Code(s): N40.0 - Benign prostatic hyperplasia without lower urinary tract symptoms Status: Acute (2) Bilateral hydronephrosis: Code(s): N13.30 - Unspecified hydronephrosis Status: Acute (3) TIA (transient ischemic attack): Code(s): G45.9 - Transient cerebral ischemic attack, unspecified Status: Acute Plan 1. Possibility of seizure with focal onset 2. TIA 3. Repeat CT scan is negative will obtain the CTA also an EEG and MRI of the brain in the meantime will start him on Keppra 500mg b.i.d. along with seizure precautions thank you Consult date: 06/05/23 HPI: Matthew Aldana is a 88 year old male admitted to the hospital through the emergency room for the complaints of possible obstruction in the urinary system reportedly he has had the ultrasound done at [facility] on 05/31 this year that show that he has prominent bilateral hydronephrosis bilateral renal atrophy urinary bladder trabeculation and diverticulum formation he was sent to the ER by the armoring machine operator. Home medications included fenofibrate multivitamins daily calciferol and irbesartan 300mg daily. He was reportedly allergic to spend sling and sulfa he does have ongoing history of 1. Chronic anemia 2. Chronic renal disease 3. Hypertension 4. Hypothyroidism 5. Prostatic cancer with history of skin cancer as well he is a never smoker only socially alcohol user initial exam in the emergency room a grossly nonfocal his vital signs were normal except the blood pressure 173/88 pulse ox of 100% CBC normal with hemoglobin 11.8 platelet count 278 WBC is 7.7 basic metabolic panel with BUN of 74 creatinine of 5.0 since admission he has had the renal ultrasound which again documented the bilateral hydronephrosis renal atrophy and urinary bladder trabeculation. Neuro consultation has been obtained as his stroke call patient reportedly deviated his eyes to the right side and became weak on the left side for short duration initial CT scan revealed no bleed except the white matter changes PMFSH Past Medical History Medical History (Updated 06/05/23 @ 15:25 by Marty Tellez MD) Chronic anemia Chronic kidney disease Dyslipidemia Hypertension Hypothyroidism Prostate cancer Skin cancer Surgical History Surgical History (Updated 06/03/23 @ 15:29 by Marylin Uriostegui PA-C) History of bilateral inguinal hernia repair History of cholecystectomy History of colonoscopy Family History Family History Father Patient's father is Family history of alcoholism Hypertension Mother Patient's mother is Son Family history of diabetes mellitus in first degree relative Daughter Family history of diabetes mellitus in first degree relative Father No problems noted. Social History Social History (Updated 06/03/23 @ 15:29 by Marylin Uirostegui PA-C) Social History: Surrogate medical decision maker: Delicia or Jesus Manuel Aldana, children. Code status: Full code. Smoking status: Never smoker Second hand tobacco smoke exposure: No Alcohol intake: former Alcohol use details: Social alcohol use. Substance use: never Substance use type: does not use Do You Feel Safe in your Home?: Yes Lack of Transportation: No Lack of Food: Never True Current Housing: I Have Housing Concerned About Future Housing: No Difficulty Paying Gas/Electric Bills: No Difficulty Paying for Meds: No Currently Unemployed: No Education: Bachelor's Degree Difficulty w/ Childcare or Family Care: YES Spiritual care concerns: No Meds Home Medications and Allergies Home Medications Medication Instructions Recorded Confirmed Type cholecalciferol (vitamin D3) 50 50 mcg PO DAILY 02/23/21 06/03/23 History mcg (2,000 unit) capsule amlodipine 5 mg tablet 5 mg PO DAILY #3
[2023-06-05 15:28] LABS: Alveolar/Arterial O2 Gradient 22.2 mmHg; Base Excess ABG -3.4 mEq/l (+/-2.0); Fractional Inspired Oxygen 21 %; Oxygen Content ABG 15.6 %vol (16.0-22.0); Oxygen Saturation ABG 97.2 % (95.0-100.0); Oxyhemoglobin 95.8 % THb (90.0-100.0); PCO2 ABG 30.9 mmHg (35.0-45.0); PO2 ABG 90.5 mmHg (80.0-100.0); PO2 FiO2 Ratio Arterial Blood 4.31 %; Total Hemoglobin 11.5 g/dL (12.0-18.0); pH ABG 7.429 (7.350-7.450)
[2023-06-05 15:29] LABS: Device ROOM AIR; Modified Allen's Test Pass; Site Drawn RIGHT RADIAL
[2023-06-05 15:44] LABS: Troponin I < 0.012 ng/mL (0.000-0.034)
[2023-06-05 16:00] VITALS: PULSE 82
[2023-06-05] MEDS: levETIRAcetam 500 MG TABLET PO ×2 (18:12→20:54)
[2023-06-05 20:00] VITALS: PULSE 89; RESP 20; O2SAT 98
[2023-06-05 20:04] LABS: Troponin I < 0.012 ng/mL (0.000-0.034)
[2023-06-05 22:25] VITALS: BP 119/47; PULSE 81; RESP 20; TEMP 36.2; O2SAT 97
[2023-06-06] VITALS (13 sets, daily range): BP systolic 120–173; BP diastolic 66–87; PULSE 61–99; RESP 12–20; TEMP 35.9–36.8; O2SAT 96–100
--- NOTE | 2023-06-06 | ECHO_ITS ---
Transthoracic Echo Report [facility] [address] [place] [address] Patient Info Name: Matthew Aldana Age: 88 years : 1935 Gender: Male Ht: 68 in Wt: 170 lbs BSA: 1.94 m? BP: 119 / 47 mmHg HR: 78 bpm Heart Rhythm: Sinus Rhythm Exam Date: 06/06/2023 9:17 AM Admit Date: 06/03/2023 Exam Location: Echo Lab Patient Status: Inpatient Exam Type: CA echo doppler w bubble study Technical Quality: Good Rn Cardiac Rehab: James Rodegrs RDCS Ordering Physician: Delicia Dillon APRN Attending Provider: Emanuel Olivia MD Referring Physician: Santana CADENA; Study Info Indications Code Description stroke like symptom Procedure(s) Complete two-dimensional, color flow and Doppler transthoracic echocardiogram is performed with agitated saline. Contrast/Agitated Saline Contrast/Ag. Saline Amount Administered By Existing IV Access IV Access Condition New IV Access Site Condition Summary 1. Left ventricular chamber dimension is normal. 2. Left ventricular systolic function is normal, estimated at 55-60%. 3. There is mildly increased left ventricular wall thickness. 4. Right ventricular systolic function is normal. 5. Intact interatrial septum visualized by color flow and agitated saline imaging. Negative bubble study. 6. There is mild mitral valve regurgitation. Left Ventricle Left ventricular chamber dimension is normal. Left ventricular systolic function is normal, estimated at 55-60%. There is mildly increased left ventricular wall thickness. Right Ventricle Right ventricular chamber dimension is normal. Right ventricular systolic function is normal. Left Atria Left atrial chamber dimension is normal. Right Atria Right atrial chamber dimension is normal. Atrial Septum Intact interatrial septum visualized by color flow and agitated saline imaging. Negative bubble study. Aortic Valve The aortic valve is probable trileaflet. There is no aortic valve stenosis. There is trace aortic valve regurgitation. Mitral Valve There is mild mitral valve regurgitation. Tricuspid Valve There is trace tricuspid valve regurgitation. Pulmonic Valve The pulmonic valve is not well visualized. Aorta The aortic root size at the sinus of Valsalva is normal. Inferior Vena Cava Inferior vena cava is not well visualized. Pericardium/Pleural The pericardium appears epicardial fat pad. There is no pericardial effusion. Ventricles Name Value Normal Name Value Normal LV Dimensions 2D/MM IVS Diastolic Thickness (2D) 1.1 cm 0.6-1.0 LVOT Diameter 2.0 cm Agitated Saline 30.00 ml LVID Diastole (2D) 5.4 cm 4.2-5.8 LV Mass (2D Cubed) 221.71 g 88.00-224.00 LVIW Diastolic Thickness (2D) 1.1 cm 0.6-1.0 LV Mass Index (2D Cubed) 115 g/m? 49-115 LVID Systole (2D) 3.3 cm 2.5-4.0 Relative Wall Thickness (2D) 0.39 LV Fractional Shortening/Ejection Fraction 2D/MM LV Fractional Shortening (2D) 38 % 25-43 LV Diastolic Volume Index (BP MOD) 57 ml/m? 34-74 LV EF (2D Teicholz) 67 % 52-72 LV Systolic Volume (BP MOD) 39 ml 21-61 LV Diastolic Volume (4C MOD) 109 ml LV Systolic Volume Index (BP MOD) 20 ml/m? 11-31 LV EF (4C MOD) 62 % LV EF (BP MOD) 64 % 52-72 LV Diastolic Volume (2C MOD) 103 ml LV Diastolic Length (4C) 8.8 cm LV EF (2C MOD) 65 % LV Systolic Length (4C) 6.0 cm LV Diastolic Volume (BP MOD) 110 ml 62-150 LV Stroke Volume (4C MOD) 68 ml Atria Name Value Normal Name Value Normal LA Dimensions LA Volume (4C A-L) 49 ml LA Volume (BP A-L) 49 ml RA Dimensions RA Area (4C) 13.3 cm? .18.0 Left Ventricular Outflow Tract Name Value
[2023-06-06] MEDS: LEVOTHYROXINE SODIUM 25 MCG TABLET PO (06:16)
--- NOTE | 2023-06-06 06:29 | WPDHPUPDATE1 ---
History and Physical Update Update Date/Time: 06/06/23 06:29 History and Physical has been reviewed, including an updated exam of the patient. There are NO changes in the patient's condition. Risks, benefits, and alternatives have been discussed and questions answered. Patient agrees to proceed with procedure.
[2023-06-06 07:20] LABS: Basophils Percent Auto 0.5 % (0.2-1.2); Eosinophils Absolute Auto 0.2 K/mm3 (0-0.3); Hematocrit 31.1 % (42.0-52.0); Hemoglobin 9.8 g/dL (14.0-18.0); Immature Granulocyte Absolute 0.07 K/mm3 (0.00-0.031); Immature Granulocyte Percent A 0.9 % (0-0.5); Lymphocytes Absolute Auto 1.64 K/mm3 (0.9-3.2); Lymphocytes Percent Auto 21.1 % (18.3-44.2); Mean Corpuscular HGB Conc 31.5 g/dl (32-36); Mean Corpuscular Hemoglobin 30.6 pg (26-34); Mean Corpuscular Volume 97.2 fl (80-100); Mean Platelet Volume 11.4 fl (7.4-10.4); Monocytes Absolute Auto 0.8 K/mm3 (0.1-0.6); Monocytes Percent Auto 9.8 % (2.6-8.5); Neutrophils Percent Auto 64.7 % (45.5-73.1); Platelet Count Result 233 k/mm3 (150-375); White Blood Count 7.8 K/mm3 (4.5-10.0)
[2023-06-06 07:43] LABS: Albumin Level 3.4 g/dL (3.5-5.1); Anion Gap 10 mmol/L (4-12); Blood Urea Nitrogen 65 mg/dL (9-20); Calcium 8.5 mg/dL (8.4-10.2); Carbon Dioxide 17 mmol/L (22-30); Chloride 111 mmol/L (98-107); Estimated CRCL calculation 11 ml/min; Estimated Glomerular Filt Rate 14; Glucose 93 mg/dL (65-110); Phosphorus 4.8 mg/dL (2.5-4.5); Potassium 4.3 mmol/L (3.4-5.0); Sodium 138 mmol/L (137-145)
--- NOTE | 2023-06-06 09:47 | P.PNIM_ITS ---
Progress Note: A&P Assessment and Plan (1) Acute on chronic kidney failure: Code(s): N17.9 - Acute kidney failure, unspecified; N18.9 - Chronic kidney disease, unspecified Status: Acute Assessment and Plan: 06/04/2023: * Renal ultrasound from 06/01/2023 showing prominent bilateral hydronephrosis, bilateral renal atrophy. * Repeat renal ultrasound shows improvement with now mild to moderate bilateral hydronephrosis * Initial BUN 69, creatinine 5.1. * BUN 73, creatinine 4.5 today * EGFR is 12 * Nephrology consulted * Continue to hold your Irbesartan 06/05/2023: * Urology seen patient today and plan is to take patient tomorrow for cystoscopy and bilateral ureteral stent placement pending incident today. * Creatinine any is 4.6, EGFR is 12 * Nephrology on board as well * Continue to hold ARB 06/06/23: * Urology following * Creatinine down to 4.0 today * Plan for cystoscopy with stent placement with Urology Services (2) Urinary retention: Code(s): R33.9 - Retention of urine, unspecified Status: Acute Assessment and Plan: 06/04/23: * Continue Flomax and Avodart 06/05/2023: * No change to current treatment plan * Continue with Ho catheter (3) Chronic anemia: Code(s): D64.9 - Anemia, unspecified Status: Acute Assessment and Plan: 06/04/2023: * Hemoglobin 11.1 06/05/2023: * No change to current treatment plan (4) Hypertension: Code(s): I10 - Essential (primary) hypertension Status: Acute Assessment and Plan: 06/04/2023: * Blood pressure 135/79 to 165/79 * Continue amlodipine 06/05/2023: * No change to current treatment plan (5) Hypothyroidism: Code(s): E03.9 - Hypothyroidism, unspecified Status: Acute Assessment and Plan: 06/04/23: * TSH 11.5, free T4 0.85 * Continue Synthroid 06/05/2023: * No change to current treatment plan (6) Dyslipidemia: Code(s): E78.5 - Hyperlipidemia, unspecified Status: Acute Assessment and Plan: 06/04/2023: * Continue fenofibrate 06/05/2023: * No change to current treatment plan (7) TIA (transient ischemic attack): Code(s): G45.9 - Transient cerebral ischemic attack, unspecified Status: Acute Assessment and Plan: 06/05/23: * Found patient with left sided weakness, facial droop, slurred speech and eyes deviated to the left. Once patient was back from CT he was back to his baseline, able to move all 4 extremities, and facial features were symmetrical. * NIH score > 25 * CT of head negative for any acute infarct * MRA of the brain without contrast ordered * Troponin negative, BG 129, Last Magnesium 2.1, K+ 4.3 * Start continuous telemetry * EKG shown NSR * ABG essentially unremarkable * Plan for MRI of brain and EEG tomorrow * Neurology consulted * Discussed plan of care with Dr. Peralta (Government Affairs Researcher) * Will get Echo * Urology updated on events from today 06/06/2023: * Neurology following * Carotid Doppler study showing less than 50% stenosis bilateral internal carotid arteries * MRA of the brain was normal * MRI of the brain showed extensive nonspecific cerebral white matter disease which represents chronic small vessel ischemic disease * EEG results are still pending * Patient was started on Keppra per Neurology * Will also get echo today Time Spent With Patient Time with patient: 25 - 35 minutes Subjective Date/time seen: 06/06/23 09:47 Interval his
--- NOTE | 2023-06-06 09:47 | PM.IMPN ---
Progress Note: A&P Assessment and Plan (1) Acute on chronic kidney failure: Code(s): N17.9 - Acute kidney failure, unspecified; N18.9 - Chronic kidney disease, unspecified Status: Acute Assessment and Plan: 06/04/2023: Renal ultrasound from 06/01/2023 showing prominent bilateral hydronephrosis, bilateral renal atrophy. Repeat renal ultrasound shows improvement with now mild to moderate bilateral hydronephrosis Initial BUN 69, creatinine 5.1. BUN 73, creatinine 4.5 today EGFR is 12 Nephrology consulted Continue to hold your Irbesartan 06/05/2023: Urology seen patient today and plan is to take patient tomorrow for cystoscopy and bilateral ureteral stent placement pending incident today. Creatinine any is 4.6, EGFR is 12 Nephrology on board as well Continue to hold ARB 06/06/23: Urology following Creatinine down to 4.0 today Plan for cystoscopy with stent placement with Urology Services (2) Urinary retention: Code(s): R33.9 - Retention of urine, unspecified Status: Acute Assessment and Plan: 06/04/23: Continue Flomax and Avodart 06/05/2023: No change to current treatment plan Continue with Ho catheter (3) Chronic anemia: Code(s): D64.9 - Anemia, unspecified Status: Acute Assessment and Plan: 06/04/2023: Hemoglobin 11.1 06/05/2023: No change to current treatment plan (4) Hypertension: Code(s): I10 - Essential (primary) hypertension Status: Acute Assessment and Plan: 06/04/2023: Blood pressure 135/79 to 165/79 Continue amlodipine 06/05/2023: No change to current treatment plan (5) Hypothyroidism: Code(s): E03.9 - Hypothyroidism, unspecified Status: Acute Assessment and Plan: 06/04/23: TSH 11.5, free T4 0.85 Continue Synthroid 06/05/2023: No change to current treatment plan (6) Dyslipidemia: Code(s): E78.5 - Hyperlipidemia, unspecified Status: Acute Assessment and Plan: 06/04/2023: Continue fenofibrate 06/05/2023: No change to current treatment plan (7) TIA (transient ischemic attack): Code(s): G45.9 - Transient cerebral ischemic attack, unspecified Status: Acute Assessment and Plan: 06/05/23: Found patient with left sided weakness, facial droop, slurred speech and eyes deviated to the left. Once patient was back from CT he was back to his baseline, able to move all 4 extremities, and facial features were symmetrical. NIH score > 25 CT of head negative for any acute infarct MRA of the brain without contrast ordered Troponin negative, BG 129, Last Magnesium 2.1, K+ 4.3 Start continuous telemetry EKG shown NSR ABG essentially unremarkable Plan for MRI of brain and EEG tomorrow Neurology consulted Discussed plan of care with Dr. Peralta (Customer Success Advocate) Will get Echo Urology updated on events from today 06/06/2023: Neurology following Carotid Doppler study showing less than 50% stenosis bilateral internal carotid arteries MRA of the brain was normal MRI of the brain showed extensive nonspecific cerebral white matter disease which represents chronic small vessel ischemic disease EEG results are still pending Patient was started on Keppra per Neurology Will also get echo today Time Spent With Patient Time with patient: 25 - 35 minutes Subjective Date/time seen: 06/06/23 09:47 Interval history: 06/04/23: This is an 80-year-old male presented to hospital on 06/02 4 with abnormal labs. Patient had labs drawn about 1 month ago which showed a creatinine of 5.10 which is up from his baseline of 1.3-1.4. He was referred to Nephrology at that time. He had a renal ultrasound this past Saturday showing prominent bilateral hydronephrosis and bilateral renal atrophy with urinary bladder trabeculation. He was referred back to the hospital further workup. Workup in the hospital included a repeat renal ultrasound which showed slight impro
--- NOTE | 2023-06-06 10:16 | WPDNEUROPN ---
Progress Note: A&P Assessment and Plan (1) TIA (transient ischemic attack): Code(s): G45.9 - Transient cerebral ischemic attack, unspecified Status: Acute (2) Seizure-like activity: Code(s): R56.9 - Unspecified convulsions Status: Acute (3) Acute on chronic kidney failure: Code(s): N17.9 - Acute kidney failure, unspecified; N18.9 - Chronic kidney disease, unspecified Status: Acute (4) Hyperlipidemia: Code(s): E78.5 - Hyperlipidemia, unspecified Status: Acute (5) Hypertension: Code(s): I10 - Essential (primary) hypertension Status: Acute Plan Mr. Aldana is an year old male currently admitted due to renal failure. During the admission he had a transient episode of L sided weakness, L gaze deviation, and speech change. Ipsilateral gaze deviation is suggestive of seizure rather than stroke but both are on the differential. - Will obtain MRI brain, MRA brain, carotid doppler study - Routine EEG - Check LDL, A1c - Obtain surface echocardiogram with bubble study - Ok to continue Keppra 500mg BID - No driving until event free for at least 6 months Subjective Date/time seen: 06/06/23 10:16 Interval history: Mr. Aldana is an year old male currently admitted due to acute renal failure. His BUN and Cr on admission were 69 and 5.1 respectively. Renal ultrasound showed bilateral hydronephrosis and bilateral renal atrophy. Noted to have TSH of 11. On 06/04 he had an episode described as L sided weakness, L facial droop, slurred speech, and eyes deviated to the left. He was taken to CT which showed no acute changes. By the time, he got back, he was back to baseline, with symmetric strength and no evidence of facial droop. CTA was not done due to his renal function. MRI brain and MRA brain are ordered as well as EEG. Patient was started on Keppra 500mg BID by Dr. Tellez. Patient denies any prior history of seizures, stroke or TIAs. No family history of seizures. He has no recollection of the episode. Review of Systems Review of Systems: All systems reviewed & are unremarkable except as noted in HPI and below Exam Const: General: no acute distress and well nourished Nutritional Appearance: well nourished HENMT: Head: normocephalic and atraumatic Ears: hearing grossly normal bilaterally Eyes: General: appearance normal, both eyes and all related structures Eyelids: eyelids normal Conjunctivae: conjunctivae normal Pupils: Equal, round and reactive pupils present EOM: No Nystagmus present Resp: Effort & Inspection: normal respiratory effort Skin: General skin exam: normal color and no rashes or lesions noted Neuro: Cranial nerves: Yes CN's II-XII intact bilaterally, Yes Equal, round and reactive pupils present, Yes Bilaterally intact EOM present, Yes Nystagmus not present, Yes Normal facial strength present, Yes facial symmetry and Yes Midline tongue present Speech: normal speech Motor exam (neuro): Motor abnormalities not present Sensory Exam: normal sensation Coordination: [id number] test normal Other: RLE 5/5, LUE 4+/5 RLE 5/5 LLE 5/5 Extrem: General: normal to inspection Psych: Appearance: grossly normal Mental Status: mental status grossly normal Affect: normal affect Attitude: cooperative Objective Data Vital Signs Vital Signs: Vital Signs - 24 hr 06/05/23 16:00 06/05/23 20:00 06/05/23 20:00 Temperature Pulse Rate 82 89 89 Respiratory Rate 20 Blood Pressure Pulse Oximetry 98 Oxygen Delivery Room Air Fraction of Inspired Oxygen 21 06/06/23 00:00 06/05/23 22:25 06/06/23 04:00 Temperature 36.2 C L Pulse Rate 78 81 76 Respiratory Rate 20 Blood Pressure 119/47 L Pulse Oximetry 97 Oxygen Delivery Fraction of Inspired Oxygen 06/06/23 07:00 Temperature 35.9 C L Pulse Rate 64 Respiratory Rate 20 Blood Pressure 129/66 Pulse Oximetry 99 Oxygen Delivery Fraction of Inspired Oxygen Intake/Outpu
[2023-06-06] MEDS: levETIRAcetam 500 MG TABLET PO ×2 (11:45→20:57)
[2023-06-06] MEDS: amLODIPine BESYLATE 5 MG TABLET PO (11:50)
--- NOTE | 2023-06-06 12:01 | P.PNNP_ITS ---
Progress Note: A&P Assessment and Plan (1) TABATHA (acute kidney injury): Code(s): N17.9 - Acute kidney failure, unspecified Status: Acute Assessment and Plan: * noted by outpatient labs done in April 2023 * repeat labs on admission similar with creatinine of 5.0mg/dl * presumably secondary to obstructive uropathy/urinary retention based on outpatient renal ultrasound * s/p rodriguez catheter placement * only mild improvement in renal function noted * follow repeat labs and UOP (2) Stage 3a chronic kidney disease: Code(s): N18.31 - Chronic kidney disease, stage 3a Status: Chronic Assessment and Plan: * baseline creatinine running around 1.3 - 1.4mg/dl * presumably due to hypertension, vascular disease, BPH, and age-related change (3) Bilateral hydronephrosis: Code(s): N13.30 - Unspecified hydronephrosis Status: Acute Assessment and Plan: * as noted by outpatient renal ultrasound * s/p rodriguez catheter placement * good urine output noted * no signifincat improvement in renal function to date * Urology following * noted plans for cysto and bilateral ureteral stent placement today * continue current therapy (4) TIA (transient ischemic attack): Code(s): G45.9 - Transient cerebral ischemic attack, unspecified Status: Acute Assessment and Plan: * suspected based on events on 06/05 afternoon * CT of head negative * MRI/MRA of brain noted' * Neurology following (5) Chronic anemia: Code(s): D64.9 - Anemia, unspecified Status: Chronic Assessment and Plan: * possibly related to TABATHA/CKD * follow trend of H/H (6) Hypertension: Code(s): I10 - Essential (primary) hypertension Status: Chronic Assessment and Plan: * reasonable control at this time * follow trend of hemodynamics Will continue to follow. Subjective Date/time seen: 06/06/23 12:01 Interval history: Follow-up for acute kidney injury/acute renal failure. Events noted yesterday afternoon -- found to be slumped in chair with facial drooping on left, eyes deviated to right, slurred speech, weakness in left arm and leg associated with drooling - code stroke called and he was put back in bed and STAT head CT done which was negative for acute stroke/CVA; following CT of had, he became more responsive and was able to move all extremities withoout any neurological deficits; currently, he appears to be doing reasonably well at the time of my visit; no apparent distress noted; scheduled for cystoscopy and bilateral stent placement this afternoon by Urology; no other issues/problems overnight or earlier this morning. Exam Narrative: General: elderly but WD/WN male in NAD Heart: normal S1 and S2; no rub Lungs: clear to auscultation Abdomen: soft, nontender, nondistended, positive bowel sounds Extremities: no cyanosis or clubbing; no edema Skin: warm and dry Objective Data Vital Signs Vital Signs: Vital Signs Temp Pulse Resp BP Pulse Ox O2 Del Method O2 Flow Rate 06/06/23 07:00 96.7 F L 64 20 129/66 99 06/06/23 04:00 76 06/05/23 22:25 97.1 F L 81 20 119/47 L 97 06/06/23 00:00 78 06/05/23 20:00 89 20 98 Room Air 06/05/23 20:00 89 Intake/Output Intake/Output: Intake & Output
--- NOTE | 2023-06-06 12:01 | PM.PNNEP ---
Progress Note: A&P Assessment and Plan (1) TABATHA (acute kidney injury): Code(s): N17.9 - Acute kidney failure, unspecified Status: Acute Assessment and Plan: noted by outpatient labs done in April 2023 repeat labs on admission similar with creatinine of 5.0mg/dl presumably secondary to obstructive uropathy/urinary retention based on outpatient renal ultrasound s/p rodriguez catheter placement only mild improvement in renal function noted follow repeat labs and UOP (2) Stage 3a chronic kidney disease: Code(s): N18.31 - Chronic kidney disease, stage 3a Status: Chronic Assessment and Plan: baseline creatinine running around 1.3 - 1.4mg/dl presumably due to hypertension, vascular disease, BPH, and age-related change (3) Bilateral hydronephrosis: Code(s): N13.30 - Unspecified hydronephrosis Status: Acute Assessment and Plan: as noted by outpatient renal ultrasound s/p rodriguez catheter placement good urine output noted no signifincat improvement in renal function to date Urology following noted plans for cysto and bilateral ureteral stent placement today continue current therapy (4) TIA (transient ischemic attack): Code(s): G45.9 - Transient cerebral ischemic attack, unspecified Status: Acute Assessment and Plan: suspected based on events on 06/[address] of head negative MRI/MRA of brain noted' Neurology following (5) Chronic anemia: Code(s): D64.9 - Anemia, unspecified Status: Chronic Assessment and Plan: possibly related to TABATHA/CKD follow trend of H/H (6) Hypertension: Code(s): I10 - Essential (primary) hypertension Status: Chronic Assessment and Plan: reasonable control at this time follow trend of hemodynamics Will continue to follow. Subjective Date/time seen: 06/06/23 12:01 Interval history: Follow-up for acute kidney injury/acute renal failure. Events noted yesterday afternoon -- found to be slumped in chair with facial drooping on left, eyes deviated to right, slurred speech, weakness in left arm and leg associated with drooling - code stroke called and he was put back in bed and STAT head CT done which was negative for acute stroke/CVA; following CT of had, he became more responsive and was able to move all extremities withoout any neurological deficits; currently, he appears to be doing reasonably well at the time of my visit; no apparent distress noted; scheduled for cystoscopy and bilateral stent placement this afternoon by Urology; no other issues/problems overnight or earlier this morning. Exam Narrative: General: elderly but WD/WN male in NAD Heart: normal S1 and S2; no rub Lungs: clear to auscultation Abdomen: soft, nontender, nondistended, positive bowel sounds Extremities: no cyanosis or clubbing; no edema Skin: warm and dry Objective Data Vital Signs Vital Signs: Vital Signs Temp Pulse Resp BP Pulse Ox O2 Del Method O2 Flow Rate 06/06/23 07:00 96.7 F L 64 20 129/66 99 06/06/23 04:00 76 06/05/23 22:25 97.1 F L 81 20 119/47 L 97 06/06/23 00:00 78 06/05/23 20:00 89 20 98 Room Air 06/05/23 20:00 89 Intake/Output Intake/Output: Intake & Output 06/03/23 06/04/23 06/05/23 06/06/23 23:59 23:59 23:59 23:59 Intake Total 240 2564 1500 300 Output Total 2500 3265 2500 1999 Balance -2260 -701 -1000 -1700 Meds/Results Medications: Active Medications Generic Name Dose Route Start Last Admin Trade Name Freq PRN Reason Stop Dose Admin Acetaminophen 650 mg 06/03/23 15:39 Acetaminophen 325 Mg Tablet PO Q6H PRN Mild Pain (1-3) or Fever Amlodipine Besylate 5 mg 06/04/23 09:00 06/06/23 11:50 Amlodipine Besylate 5 Mg Tablet PO 5 mg DAILY CHASIDY Administration Dextrose 12.5 gm 06/03/23 15:39 Dextrose 50% 25 Gm/50 Ml Syringe IV PUSH PRN PRN
[2023-06-06] MEDS: LACTATED RINGERS 1,000 ML 30 ML IV CONT (13:05)
--- NOTE | 2023-06-06 13:24 | PCPTNOTE ---
per RN, pt is in surgery right now but to try again tomorrow, will follow
--- NOTE | 2023-06-06 13:44 | WPDANESEPPF ---
Anes - Initial Pre Proc Eval Procedure: Operation Date: 06/06/23 14:15 Proposed Procedures p Cystoscopy, Bilateral Ureteral Stent Placement - Tony Urbano MD Date/Time: 06/06/23 13:44 Surgeon: Emanuel Olivia MD Pre Op Diagnosis: CKD/Urinary Retention/Outlet Obstruction Patient Data Age: 88 Gender: M Height: 1.73 m Weight: 72 kg Last Vital Signs Temp 98.2 F 06/06/23 13:05 Pulse 67 06/06/23 13:05 Resp 18 06/06/23 13:05 BP 173/73 H 06/06/23 13:05 Pulse Ox 100 06/06/23 13:05 O2 Del Method Room Air 06/06/23 13:05 FiO2 21 06/05/23 20:00 Allergies Allergy/AdvReac Type Severity Reaction Status Date / Time Penicillins Allergy Unknown Unknown Verified 06/03/23 13:41 Sulfa (Sulfonamide Allergy Rash Verified 06/03/23 13:41 Antibiotics) Home Medications Medication Instructions Recorded Confirmed Type cholecalciferol (vitamin D3) 50 50 mcg PO DAILY 02/23/21 06/03/23 History mcg (2,000 unit) capsule amlodipine 5 mg tablet 5 mg PO DAILY #30 tabs 04/10/23 06/03/23 Rx geriatric multivitamin-min 1 tablet PO DAILY 05/27/23 06/03/23 History dutasteride 0.5 mg-tamsulosin ER 1 cap PO DAILY #90 caps 06/03/23 06/03/23 Rx 0.4 mg capsule ext.release 24hr mphas fenofibrate nanocrystallized 145 145 mg PO DAILY 06/03/23 06/03/23 History mg tablet irbesartan 300 mg tablet 300 mg PO DAILY 06/03/23 06/03/23 History levothyroxine 25 mcg capsule 25 mcg PO DAILY #90 caps 06/03/23 06/03/23 Rx Laboratory Tests 06/05/23 06/05/23 06/05/23 14:40 15:06 15:11 WBC RBC Hgb Hct MCV MCH MCHC RDW Plt Count MPV Immature Gran % (Auto) Neut % (Auto) Lymph % (Auto) [place] % (Auto) Eos % (Auto) Baso % (Auto) Lymph # (Auto) [place] # (Auto) Eos # (Auto) Baso # (Auto) Abs Immat Gran (auto) Absolute Neuts (auto) Absolute Nucleated RBC Nucleated RBC % Puncture Site Right radial ABG pH 7.429 (7.350-7.450) ABG pCO2 30.9 L mmHg (35.0-45.0) ABG pO2 90.5 mmHg (80.0-100.0) ABG PO2/FiO2 Ratio 4.31 % ABG HCO3 20.0 L mEq/l (22.0-26.0) ABG O2 Saturation 97.2 % (95.0-100.0) ABG O2 Content 15.6 L %vol (16.0-22.0) ABG Base Excess -3.4 mEq/l (+/-2.0) A-a Gradient 22.2 mmHg Oxyhemoglobin 95.8 % THb (90.0-100.0) Total Hemoglobin 11.5 L g/dL (12.0-18.0) O2 Delivery Device Room air O2 Liters/Min Not Reportable FiO2 21 % Sodium Potassium Chloride Carbon Dioxide Anion Gap BUN Creatinine Estim Creat Clear Calc Estimated GFR Glucose POC Capillary Glucose 129 H mg/dl (65-105) Calcium Phosphorus Troponin I < 0.012 ng/mL (0.000-0.034) Albumin 06/05/23 06/06/23 19:11 06:22 WBC 7.8 K/mm3 (4.5-10.0) RBC 3.20 L M/mm3 (4.6-6.20) Hgb 9.8 L g/dL (14.0-18.0) Hct 31.1 L % (42.0-52.0) MCV 97.2 fl (80-100) MCH 30.6 pg (26-34) MCHC 31.5 L g/dl (32-36) RDW 15.0 H % (11.5-14.5) Plt Count 233 k/mm3 (150-375) MPV 11.4 H fl (7.4-10.4) Immature Gran % (Auto) 0.9 H % (0-0.5) Neut % (Auto) 64.7 % (45.5-73.1) Lymph % (Auto) 21.1 % (18.3-44.2) [place] % (Auto) 9.8 H % (2.6-8.5) Eos % (Auto) 3.0 % (0-4.4) Baso % (Auto) 0.5 % (0.2-1.2) Lymph # (Auto) 1.64 K/mm3 (0.9-3.2) [place] # (Auto) 0.8 H K/mm3 (0.1-0.6) Eos # (Auto) 0.2
[2023-06-06] MEDS: ceFAZolin 2 GM/D5W 50 ML 2 GM/50 ML BAG IVPB (13:55)
[2023-06-06] MEDS: LIDOCAINE HCL 2% GEL UROJET 10 ML PKG MUCOUS MEM (14:09)
--- NOTE | 2023-06-06 14:47 | W.PM.PROC2 ---
Procedure Note - Detailed Date of Procedure 06/06/23 Pre-op Diagnosis CKD/Urinary Retention/Outlet Obstruction Post-op Diagnosis Other (1. Bilateral ureteral obstruction at ureteral-vesicle junction d/t bladder wall thickening resulting from bladder outlet obstruction. 2. Right distal ureteral stone) Procedure Performed Cystoscopy, left retrograde pyelography and left ureteral stent placement. Right ureteroscopy with stone extraction, right ureteral stent placement Surgeon Tony Urbano MD Anesthesia General Findings 1. Bilateral concentric narrowing of the distal ureter consistent with ureteral obstruction secondary to bladder wall thickening. This bladder wall thickening/ detrusor hypertrophy occurs is result of bladder outlet obstruction. 2. Right distal ureteral stone (not a source for ureteral significant) Description of Procedure patient is brought to the operative suite where she has prepped draped in routine sterile fashion 1 dorsal lithotomy position after the induction of general anesthetic. Cystoscopy was undertaken with a 21 F rigid cystoscope. There was no urethral stricture but significant lateral lobe hyperplasia and clear obstruction of the prostatic urethra. There is a small median lobe the protrude slightly into the bladder. The bladder is densely trabeculated. There was a single orthotopic ureteral orifice bilaterally. I could see a small stone in the right distal ureter. Left retrograde pyelography was undertaken with the 5 F cone-tipped catheter. There was concentric narrowing of the intramural portion of the distal left ureter consistent with obstruction from bladder wall thickening. a 6 F variable length stent is positioned on the left with a proximal coil in renal pelvis and distal coil in bladder. The remainder the ureter and collecting system have no filling defect, other sites of obstruction or other apparent pathology. On the right side I placed a 0.035 in glidewire, dilated the distal ureter with an 8 F 10 F dilator and performed ureteroscopy to the mid ureter with a short tapered semi-rigid ureteral scope. The small stone was extracted with a 1.9 F disposable stone basket. There is no additional identifiable pathology in the right distal ureter. There does appear again to be concentric narrowing consistent with obstruction due to bladder thickening. I placed a 6F variable length stent on that side as well . Lastly an 18 F coude catheter was placed to drainage. The patient tolerated the procedure well was taken recovery room good condition. Estimated Blood Loss 0 Drains Yes Packing No Pathology Yes Complications No immediate complications Condition Stable Disposition PACU
[2023-06-06] MEDS: fentaNYL CITRATE INJ (*CRX) 100 MCG/2 ML VIAL 25 MCG IV PUSH ×2 (15:15→15:25)
--- NOTE | 2023-06-06 15:18 | PCOTNOTE ---
Attempted to see pt. for occupational therapy evaluation. Pt. currently in surgery. Nursing aware. Following.
[2023-06-06] MEDS: FENOFIBRATE NANOCRYSTALLIZED 145 MG TABLET PO (17:17)
[2023-06-06] MEDS: DUTASTERIDE 0.5 MG CAPSULE PO (17:17)
[2023-06-06] MEDS: TAMSULOSIN HCL 0.4 MG CAPSULE PO (17:17)
[2023-06-07] VITALS (8 sets, daily range): BP systolic 116–121; BP diastolic 57–69; PULSE 80–95; RESP 18–20; TEMP 35.9–36.4; O2SAT 98–99
[2023-06-07] MEDS: LEVOTHYROXINE SODIUM 25 MCG TABLET PO (05:55)
--- NOTE | 2023-06-07 06:23 | WPDUROPN2 ---
Progress Note: A&P Assessment and Plan (1) BPH (benign prostatic hyperplasia): Code(s): N40.0 - Benign prostatic hyperplasia without lower urinary tract symptoms Status: Acute (2) Bilateral hydronephrosis: Code(s): N13.30 - Unspecified hydronephrosis Status: Acute Assessment and Plan: Tolerating stent. U/O remains excellent. Await morning labs to see if creat. improved. Will plan to leave stents 4-6 weeks. Following removal he'll need careful observation for recurrence of ureteral obstruction. Subjective Subjective Date/Time Seen: 06/07/23 06:23 Interval history: Comfortable, tolerating stents Review of Systems Review of Systems: All systems reviewed & are unremarkable except as noted in HPI and below Exam Const: General: no acute distress Resp: Effort & Inspection: normal respiratory effort GI: Inspection: non-distended GI Palp: No abdominal tenderness and No Guarding due to palpation present (GI) Auscultation: normal bowel sounds Urinary Catheter: Urinary Catheter: patent and draining and urine clear Objective Data Vital Signs Vital Signs: Vital Signs - 24 hr 06/06/23 07:00 06/06/23 08:00 06/06/23 13:05 Temperature 96.7 F L 98.2 F Pulse Rate 64 65 67 Respiratory Rate 20 18 Blood Pressure 129/66 173/73 H Pulse Oximetry 99 100 Oxygen Delivery Room Air Oxygen Flow Rate 06/06/23 14:54 06/06/23 15:05 06/06/23 15:20 Temperature 97.2 F L Pulse Rate 68 61 64 Respiratory Rate 16 16 12 Blood Pressure 133/75 150/83 H 145/69 H Pulse Oximetry 96 100 100 Oxygen Delivery Simple Face Mask Room Air Room Air Oxygen Flow Rate 8 06/06/23 15:35 06/06/23 15:40 06/06/23 16:00 Temperature Pulse Rate 98 99 81 Respiratory Rate 16 20 Blood Pressure 120/75 122/74 Pulse Oximetry 100 100 Oxygen Delivery Room Air Room Air Oxygen Flow Rate 06/06/23 20:00 06/06/23 20:00 06/06/23 21:40 Temperature 98.2 F Pulse Rate 78 83 Respiratory Rate 18 Blood Pressure 139/87 Pulse Oximetry 100 100 Oxygen Delivery Room Air Oxygen Flow Rate 06/07/23 04:00 Temperature Pulse Rate 92 Respiratory Rate Blood Pressure Pulse Oximetry Oxygen Delivery Oxygen Flow Rate Intake/Output Intake/Output: Intake & Output 06/04/23 06/05/23 06/06/23 06/07/23 23:59 23:59 23:59 23:59 Intake Total 2564 1500 660 Output Total 3268 4568 6738 Balance -732 -2807 -4341 Meds/Results Medications: Active Medications Generic Name Dose Route Start Last Admin Trade Name Freq PRN Reason Stop Dose Admin Acetaminophen 650 mg 06/03/23 15:39 Acetaminophen 325 Mg Tablet PO Q6H PRN Mild Pain (1-3) or Fever Amlodipine Besylate 5 mg 06/04/23 09:00 06/06/23 11:50 Amlodipine Besylate 5 Mg Tablet PO 5 mg DAILY CHASIDY Administration Dextrose 12.5 gm 06/03/23 15:39 Dextrose 50% 25 Gm/50 Ml Syringe IV PUSH PRN PRN Hypoglycemia Protocol Dutasteride 0.5 mg 06/04/23 09:00 06/06/23 17:17 Dutasteride 0.5 Mg Capsule PO 0.5 mg QAM CHASIDY Administration Fenofibrate 145 mg 06/04/23 09:00 06/06/23 17:17 Fenofibrate Nanocrystallized 145 Mg Tablet PO 145 mg DAILY CHASIDY Administration Glucagon 1 mg 06/03/23 15:39 Glucagon For Inj 1 Mg Vial IM PRN PRN Hypoglycemia Protocol Glucose 15 gm 06/03/23 15:39 Glucose Oral Gel 15 Gm Of Glucse In 37.5 Gm Tube PO PRN PRN Hypoglycemia Protocol Dextrose 1,000 mls @ 100 mls/hr 06/03/23 15:39 Dextrose 5% 1,000 Ml IVPB PRN PRN Hypoglycemia Protocol Lactated Ringer's 1,000 mls @ 30 mls/hr 06/06/23 14:15 06/06/23 15:35 Lr - Lactated Ringers Iv IV CONT Infused .Q24H CHASIDY Infusion Levetiracetam 500 mg 06/05/23 15:55 06/06/23 20:57 Levetiracetam 500 Mg Tablet PO 500 mg Q12HR CHASIDY Administration Levothyroxine Sodium 25 mcg 06/04/23 06:30 06/07/23 05:55 Levothyroxine Sodium 25 Mcg
[2023-06-07 06:37] LABS: Basophils Absolute Auto 0.1 K/mm3 (0.0-0.1); Basophils Percent Auto 0.6 % (0.2-1.2); Eosinophils Absolute Auto 0.2 K/mm3 (0-0.3); Eosinophils Percent Auto 2.5 % (0-4.4); Hematocrit 32.5 % (42.0-52.0); Hemoglobin 10.2 g/dL (14.0-18.0); Immature Granulocyte Absolute 0.07 K/mm3 (0.00-0.031); Immature Granulocyte Percent A 0.8 % (0-0.5); Lymphocytes Percent Auto 13.7 % (18.3-44.2); Mean Corpuscular HGB Conc 31.4 g/dl (32-36); Mean Corpuscular Hemoglobin 30.9 pg (26-34); Mean Corpuscular Volume 98.5 fl (80-100); Mean Platelet Volume 11.5 fl (7.4-10.4); Monocytes Absolute Auto 0.9 K/mm3 (0.1-0.6); Monocytes Percent Auto 10.5 % (2.6-8.5); Neutrophils Absolute Auto 6.3 K/mm3 (1.3-6.7); Neutrophils Percent Auto 71.9 % (45.5-73.1); Platelet Count Result 233 k/mm3 (150-375); White Blood Count 8.8 K/mm3 (4.5-10.0)
[2023-06-07 06:52] LABS: Albumin Level 3.5 g/dL (3.5-5.1); Anion Gap 8 mmol/L (4-12); Blood Urea Nitrogen 63 mg/dL (9-20); Calcium 8.7 mg/dL (8.4-10.2); Carbon Dioxide 20 mmol/L (22-30); Chloride 109 mmol/L (98-107); Estimated CRCL calculation 11 ml/min; Estimated Glomerular Filt Rate 14; Glucose 98 mg/dL (65-110); Phosphorus 4.6 mg/dL (2.5-4.5); Sodium 137 mmol/L (137-145)
--- NOTE | 2023-06-07 07:44 | P.PNIM_ITS ---
Progress Note: A&P Assessment and Plan (1) Acute on chronic kidney failure: Code(s): N17.9 - Acute kidney failure, unspecified; N18.9 - Chronic kidney disease, unspecified Status: Acute Assessment and Plan: 06/04/2023: * Renal ultrasound from 06/01/2023 showing prominent bilateral hydronephrosis, bilateral renal atrophy. * Repeat renal ultrasound shows improvement with now mild to moderate bilateral hydronephrosis * Initial BUN 69, creatinine 5.1. * BUN 73, creatinine 4.5 today * EGFR is 12 * Nephrology consulted * Continue to hold your Irbesartan 06/05/2023: * Urology seen patient today and plan is to take patient tomorrow for cystoscopy and bilateral ureteral stent placement pending incident today. * Creatinine any is 4.6, EGFR is 12 * Nephrology on board as well * Continue to hold ARB 06/06/23: * Urology following * Creatinine down to 4.0 today * Plan for cystoscopy with stent placement with Urology Services 06/07/23: * Patient is post op day 1 from cystoscopy with bilateral ureter stents * Creatinine today is 4.1 * Urology following * Ho is in place draining pink-tinged urine * Continue to trend (2) Urinary retention: Code(s): R33.9 - Retention of urine, unspecified Status: Acute Assessment and Plan: 06/04/23: * Continue Flomax and Avodart 06/05/2023: * No change to current treatment plan * Continue with Ho catheter 06/07/23: * No change to current treatment plan (3) TIA (transient ischemic attack): Code(s): G45.9 - Transient cerebral ischemic attack, unspecified Status: Acute Assessment and Plan: 06/05/23: * Found patient with left sided weakness, facial droop, slurred speech and eyes deviated to the left. Once patient was back from CT he was back to his baseline, able to move all 4 extremities, and facial features were symmetrical. * NIH score > 25 * CT of head negative for any acute infarct * MRA of the brain without contrast ordered * Troponin negative, BG 129, Last Magnesium 2.1, K+ 4.3 * Start continuous telemetry * EKG shown NSR * ABG essentially unremarkable * Plan for MRI of brain and EEG tomorrow * Neurology consulted * Discussed plan of care with Dr. Peralta ([employer]) * Will get Echo * Urology updated on events from today 06/06/2023: * Neurology following * Carotid Doppler study showing less than 50% stenosis bilateral internal carotid arteries * MRA of the brain was normal * MRI of the brain showed extensive nonspecific cerebral white matter disease which represents chronic small vessel ischemic disease * EEG results are still pending * Patient was started on Keppra per Neurology * Will also get echo today 06/07/23: * EEG and Echo results pending today * Neurology following * No neuro deficiets today * No change to treatment plan (4) Hypertension: Code(s): I10 - Essential (primary) hypertension Status: Chronic Assessment and Plan: 06/04/2023: * Blood pressure 135/79 to 165/79 * Continue amlodipine 06/05/2023: * No change to current treatment plan (5) Hypothyroidism: Code(s): E03.9 - Hypothyroidism, unspecified Status: Chronic Assessment and Plan: 06/04/23: * TSH 11.5, free T4 0.85 * Continue Synthroid 06/05/2023: * No change to current treatment plan (6) Dyslipidemia: Code(s): E78.5 - Hyperlipidemia, unspecified Status: Chronic Assessment and Plan: 06/04/2023: * Continue fenofibrate
--- NOTE | 2023-06-07 07:44 | PM.IMPN ---
Progress Note: A&P Assessment and Plan (1) Acute on chronic kidney failure: Code(s): N17.9 - Acute kidney failure, unspecified; N18.9 - Chronic kidney disease, unspecified Status: Acute Assessment and Plan: 06/04/2023: Renal ultrasound from 06/01/2023 showing prominent bilateral hydronephrosis, bilateral renal atrophy. Repeat renal ultrasound shows improvement with now mild to moderate bilateral hydronephrosis Initial BUN 69, creatinine 5.1. BUN 73, creatinine 4.5 today EGFR is 12 Nephrology consulted Continue to hold your Irbesartan 06/05/2023: Urology seen patient today and plan is to take patient tomorrow for cystoscopy and bilateral ureteral stent placement pending incident today. Creatinine any is 4.6, EGFR is 12 Nephrology on board as well Continue to hold ARB 06/06/23: Urology following Creatinine down to 4.0 today Plan for cystoscopy with stent placement with Urology Services 06/07/23: Patient is post op day 1 from cystoscopy with bilateral ureter stents Creatinine today is 4.1 Urology following Ho is in place draining pink-tinged urine Continue to trend (2) Urinary retention: Code(s): R33.9 - Retention of urine, unspecified Status: Acute Assessment and Plan: 06/04/23: Continue Flomax and Avodart 06/05/2023: No change to current treatment plan Continue with Ho catheter 06/07/23: No change to current treatment plan (3) TIA (transient ischemic attack): Code(s): G45.9 - Transient cerebral ischemic attack, unspecified Status: Acute Assessment and Plan: 06/05/23: Found patient with left sided weakness, facial droop, slurred speech and eyes deviated to the left. Once patient was back from CT he was back to his baseline, able to move all 4 extremities, and facial features were symmetrical. NIH score > 25 CT of head negative for any acute infarct MRA of the brain without contrast ordered Troponin negative, BG 129, Last Magnesium 2.1, K+ 4.3 Start continuous telemetry EKG shown NSR ABG essentially unremarkable Plan for MRI of brain and EEG tomorrow Neurology consulted Discussed plan of care with Dr. Peralta (Juice Weigher) Will get Echo Urology updated on events from today 06/06/2023: Neurology following Carotid Doppler study showing less than 50% stenosis bilateral internal carotid arteries MRA of the brain was normal MRI of the brain showed extensive nonspecific cerebral white matter disease which represents chronic small vessel ischemic disease EEG results are still pending Patient was started on Keppra per Neurology Will also get echo today 06/07/23: EEG and Echo results pending today Neurology following No neuro deficiets today No change to treatment plan (4) Hypertension: Code(s): I10 - Essential (primary) hypertension Status: Chronic Assessment and Plan: 06/04/2023: Blood pressure 135/79 to 165/79 Continue amlodipine 06/05/2023: No change to current treatment plan (5) Hypothyroidism: Code(s): E03.9 - Hypothyroidism, unspecified Status: Chronic Assessment and Plan: 06/04/23: TSH 11.5, free T4 0.85 Continue Synthroid 06/05/2023: No change to current treatment plan (6) Dyslipidemia: Code(s): E78.5 - Hyperlipidemia, unspecified Status: Chronic Assessment and Plan: 06/04/2023: Continue fenofibrate 06/05/2023: No change to current treatment plan (7) Chronic anemia: Code(s): D64.9 - Anemia, unspecified Status: Acute Assessment and Plan: 06/04/2023: Hemoglobin 11.1 06/05/2023: No change to current treatment plan Time Spent With Patient Time with patient: 25 - 35 minutes Subjective Date/time seen: 06/07/23 07:44 Interval history: 06/04/23: This is an 80-year-old male presented to hospital on 06/02 4 with abnormal labs. Patient had labs drawn about 1 month ago which showed a creatinine of 5.10
--- NOTE | 2023-06-07 08:08 | WPDANESPN ---
Anes - Prog Note Post-Op Date/Time: 06/07/23 08:08 Vital Signs: Last Vital Signs Temp 36.4 C L 06/07/23 05:40 Pulse 81 06/07/23 05:40 Resp 18 06/07/23 05:40 BP 116/69 06/07/23 05:40 Pulse Ox 98 06/07/23 05:40 O2 Del Method Room Air 06/06/23 20:00 O2 Flow Rate 8 06/06/23 14:54 FiO2 21 06/05/23 20:00 Pain Score (VAS): 0 I/O: Intake & Output 06/06/23 06/07/23 06/07/23 23:59 07:59 15:59 Intake Total 610 150 Output Total 350 1200 Balance 260 -1050 Laboratory Tests 06/07/23 05:51 06/07/23 05:51 06/07/23 05:51 WBC 8.8 RBC 3.30 L Hgb 10.2 L Hct 32.5 L MCV 98.5 MCH 30.9 MCHC 31.4 L RDW 15.0 H Plt Count 233 MPV 11.5 H Immature Gran % (Auto) 0.8 H Neut % (Auto) 71.9 Lymph % (Auto) 13.7 L Catron % (Auto) 10.5 H Eos % (Auto) 2.5 Baso % (Auto) 0.6 Lymph # (Auto) 1.20 Catron # (Auto) 0.9 H Eos # (Auto) 0.2 Baso # (Auto) 0.1 Abs Immat Gran (auto) 0.07 H Absolute Neuts (auto) 6.3 Absolute Nucleated RBC 0.000 Nucleated RBC % 0.0 Sodium 137 Potassium 5.0 Chloride 109 H Carbon Dioxide 20 L Anion Gap 8 BUN 63 H Creatinine 4.10 H Estim Creat Clear Calc 11 Estimated GFR 14 L Glucose 98 Calcium 8.7 Phosphorus 4.6 H Albumin 3.5 Patient Feedback: Patient satisfied with anesthetic care.
[2023-06-07] MEDS: CHOLECALCIFEROL 1,000 UNITS TABLET 2000 UNITS PO (08:39)
[2023-06-07] MEDS: TAMSULOSIN HCL 0.4 MG CAPSULE PO (08:39)
[2023-06-07] MEDS: DUTASTERIDE 0.5 MG CAPSULE PO (08:39)
[2023-06-07] MEDS: amLODIPine BESYLATE 5 MG TABLET PO (08:39)
[2023-06-07] MEDS: FENOFIBRATE NANOCRYSTALLIZED 145 MG TABLET PO (08:39)
[2023-06-07] MEDS: levETIRAcetam 500 MG TABLET PO ×2 (08:39→20:50)
[2023-06-07] MEDS: MULTIVITAMINS /C LUTEIN (CENTRUM SILVER) TABLET *BKC 1 TAB PO (08:39)
--- NOTE | 2023-06-07 10:38 | WPDNEUROLOGY ---
Neurology EEG Report General Information Date of Study: 06/06/23 TEST Routine EEG DIAGNOSIS Seizure-like activity CONDITION OF RECORDING Awake, drowsy EEG NUMBER [id number] CLINICAL HISTORY Mr. Aldana is an? year old male currently admitted due to renal failure. During the admission he had a transient episode of L sided weakness, L gaze deviation, and speech change.?He does not have any recollection of the event. EEG DESCRIPTION During the awake state with eyes closed the background consists of 8-9 Hz posterior dominant rhythm which attenuates appropriately with eye opening. The recording is continuous. There is a well developed anterior-posterior gradient. No significant asymmetries of background activities are noted. With drowsiness there is waxing and waning of the dominant rhythm with eventual replacement by a mixture of beta, alpha, and theta activity. Patient does not enter stage II sleep. There are no epileptiform discharges or seizures during this recording. Hyperventilation and photic stimulation were not performed. IMPRESSION This is a normal routine EEG recorded in awake and drowsy states. There are no electrographic seizures identified, nor are there any epileptiform discharges. Please note that a normal EEG cannot exclude a seizure disorder. Clinical correlation is recommended.
--- NOTE | 2023-06-07 11:01 | WPDNEUROPN ---
Progress Note: A&P Assessment and Plan (1) TIA (transient ischemic attack): Code(s): G45.9 - Transient cerebral ischemic attack, unspecified Status: Acute (2) Seizure-like activity: Code(s): R56.9 - Unspecified convulsions Status: Acute (3) Acute on chronic kidney failure: Code(s): N17.9 - Acute kidney failure, unspecified; N18.9 - Chronic kidney disease, unspecified Status: Acute (4) Hyperlipidemia: Code(s): E78.5 - Hyperlipidemia, unspecified Status: Acute (5) Hypertension: Code(s): I10 - Essential (primary) hypertension Status: Chronic Plan Mr. Aldana is an year old male currently admitted due to renal failure. During the admission he had a transient episode of L sided weakness, L gaze deviation, and speech change. Ipsilateral gaze deviation is suggestive of seizure rather than stroke but both are on the differential. MRI brain, MRA brain and carotid doppler study unrevealing. EEG is normal as well. - Check LDL, A1c - Obtain surface echocardiogram with bubble study - Ok to continue Keppra 500mg BID - No driving until event free for at least 6 months - Once renal function has improved and ok with hospitalist/nephrology would start antiplatelet -- possibly plavix if unable to take aspirin Subjective Date/time seen: 06/07/23 11:01 Interval history: Mr. Aldana is an? year old male currently admitted due to acute renal failure. His BUN and Cr on admission were 69 and 5.1 respectively. Renal ultrasound showed bilateral hydronephrosis and bilateral renal atrophy. Noted to have TSH of 11. On 06/04 he had an episode described as L sided weakness, L facial droop, slurred speech, and eyes deviated to the left. He was taken to CT which showed no acute changes. By the time, he got back, he was back to baseline, with symmetric strength and no evidence of facial droop. CTA was not done due to his renal function. MRI brain and MRA brain are ordered as well as EEG. Patient was started on Keppra 500mg BID by Dr. Tellez. Patient denies any prior history of seizures, stroke or TIAs. No family history of seizures. He has no recollection of the episode. Patient was somewhat agitated this morning. MRI brain, MRA brain, and carotid Doppler were unrevealing. Routine EEG showed no abnormalities. Renal function still compromised. Review of Systems Review of Systems: All systems reviewed & are unremarkable except as noted in HPI and below Exam Const: General: no acute distress and well nourished Nutritional Appearance: well nourished HENMT: Head: normocephalic and atraumatic Ears: hearing grossly normal bilaterally Eyes: General: appearance normal, both eyes and all related structures Eyelids: eyelids normal Conjunctivae: conjunctivae normal Pupils: Equal, round and reactive pupils present EOM: No Nystagmus present Resp: Effort & Inspection: normal respiratory effort Skin: General skin exam: normal color and no rashes or lesions noted Neuro: Cranial nerves: Yes CN's II-XII intact bilaterally, Yes Equal, round and reactive pupils present, Yes Normal facial strength present, Yes facial symmetry and Yes Midline tongue present Speech: normal speech Motor exam (neuro): Motor abnormalities not present Coordination: [id number] test normal Other: Moving all extremities equally against gravity Walking with OT Extrem: General: normal to inspection Psych: Appearance: grossly normal Mental Status: mental status grossly normal Affect: normal affect Attitude: cooperative Objective Data Vital Signs Vital Signs: Vital Signs - 24 hr 06/06/23 13:05 06/06/23 14:54 06/06/23 15:05 Temperature 36.8 C 36.2 C L Pulse Rate 67 68 61 Respiratory Rate 18 16 16 Blood Pressure 173/73 H 133/75 150/83 H Pulse Oximetry 100 96 100 Oxygen Delivery Room Air Simple Face Mask Room Air Oxygen Flow Rate 8 06/06/23 15:20 06/06/23 15:35 06/06/23 15:40 Temperature Pulse Rat
[2023-06-07 11:38] LABS: LDL Cholesterol Direct 59 mg/dL
[2023-06-07 11:46] LABS: Hemoglobin A1C 5.1 % (<5.7)
--- NOTE | 2023-06-07 16:28 | P.PNNP_ITS ---
Progress Note: A&P Assessment and Plan (1) TABATHA (acute kidney injury): Code(s): N17.9 - Acute kidney failure, unspecified Status: Acute Assessment and Plan: * noted by outpatient labs done in April 2023 * repeat labs on admission similar with creatinine of 5.0mg/dl * presumably secondary to obstructive uropathy/urinary retention based on outpatient renal ultrasound * s/p rodriguez catheter placement * only mild improvement in renal function noted * follow repeat labs and UOP (2) Stage 3a chronic kidney disease: Code(s): N18.31 - Chronic kidney disease, stage 3a Status: Chronic Assessment and Plan: * baseline creatinine running around 1.3 - 1.4mg/dl * presumably due to hypertension, vascular disease, BPH, and age-related change (3) Bilateral hydronephrosis: Code(s): N13.30 - Unspecified hydronephrosis Status: Acute Assessment and Plan: * as noted by outpatient renal ultrasound * s/p rodriguez catheter placement * good urine output noted * no signifincat improvement in renal function to date * Urology following * s/p cysto and bilateral ureteral stent placement (on 06/07/23) * continue current therapy (4) TIA (transient ischemic attack): Code(s): G45.9 - Transient cerebral ischemic attack, unspecified Status: Acute Assessment and Plan: * suspected based on events on 06/05 afternoon * CT of head negative * MRI/MRA of brain noted * Carotid dopplers reviewd * Neurology following (5) Chronic anemia: Code(s): D64.9 - Anemia, unspecified Status: Chronic Assessment and Plan: * possibly related to TABATHA/CKD * follow trend of H/H (6) Hypertension: Code(s): I10 - Essential (primary) hypertension Status: Chronic Assessment and Plan: * reasonable control at this time * follow trend of hemodynamics Will continue to follow. Subjective Date/time seen: 06/07/23 16:28 Interval history: Follow-up for acute kidney injury/acute renal failure. Appears to be doing reasonably well at the time of my visit; s/p cystoscopy and bilateral ureteral stent placement without any issues or problems; contineus to make good urine output but renal function remains the same/unimproved; no other events overnight or earlier today. Exam Narrative: General: elderly but WD/WN male in NAD Heart: normal S1 and S2; no rub Lungs: clear to auscultation Abdomen: soft, nontender, nondistended, positive bowel sounds Extremities: no cyanosis or clubbing; no edema Skin: warm and intact Objective Data Vital Signs Vital Signs: Vital Signs Temp Pulse Resp BP Pulse Ox O2 Del Method 06/07/23 14:00 96.7 F L 92 18 117/57 L 99 06/07/23 12:00 81 06/07/23 11:06 Room Air 06/07/23 08:00 85 06/07/23 08:30 Room Air 06/07/23 09:58 Room Air 06/07/23 05:40 97.5 F L 81 18 116/69 98 06/07/23 04:00 92 06/06/23 21:40 98.2 F 83 18 139/87 100 06/06/23 20:00 78 06/06/23 20:00 100 Room Air Intake/Output Intake/Output: Intake & Output 06/04/23 06/05/23 06/06/23 06/07/23 23:59 23:59 23:59 23:59 Intake Total 2564 1500 910 630 Output Total 3265 2500 2350 1200
--- NOTE | 2023-06-07 16:28 | PM.PNNEP ---
Progress Note: A&P Assessment and Plan (1) TABATHA (acute kidney injury): Code(s): N17.9 - Acute kidney failure, unspecified Status: Acute Assessment and Plan: noted by outpatient labs done in April 2023 repeat labs on admission similar with creatinine of 5.0mg/dl presumably secondary to obstructive uropathy/urinary retention based on outpatient renal ultrasound s/p rodriguez catheter placement only mild improvement in renal function noted follow repeat labs and UOP (2) Stage 3a chronic kidney disease: Code(s): N18.31 - Chronic kidney disease, stage 3a Status: Chronic Assessment and Plan: baseline creatinine running around 1.3 - 1.4mg/dl presumably due to hypertension, vascular disease, BPH, and age-related change (3) Bilateral hydronephrosis: Code(s): N13.30 - Unspecified hydronephrosis Status: Acute Assessment and Plan: as noted by outpatient renal ultrasound s/p rodriguez catheter placement good urine output noted no signifincat improvement in renal function to date Urology following s/p cysto and bilateral ureteral stent placement (on 06/07/23) continue current therapy (4) TIA (transient ischemic attack): Code(s): G45.9 - Transient cerebral ischemic attack, unspecified Status: Acute Assessment and Plan: suspected based on events on 06/[address] of head negative MRI/MRA of brain noted Carotid dopplers reviewd Neurology following (5) Chronic anemia: Code(s): D64.9 - Anemia, unspecified Status: Chronic Assessment and Plan: possibly related to TABATHA/CKD follow trend of H/H (6) Hypertension: Code(s): I10 - Essential (primary) hypertension Status: Chronic Assessment and Plan: reasonable control at this time follow trend of hemodynamics Will continue to follow. Subjective Date/time seen: 06/07/23 16:28 Interval history: Follow-up for acute kidney injury/acute renal failure. Appears to be doing reasonably well at the time of my visit; s/p cystoscopy and bilateral ureteral stent placement without any issues or problems; contineus to make good urine output but renal function remains the same/unimproved; no other events overnight or earlier today. Exam Narrative: General: elderly but WD/WN male in NAD Heart: normal S1 and S2; no rub Lungs: clear to auscultation Abdomen: soft, nontender, nondistended, positive bowel sounds Extremities: no cyanosis or clubbing; no edema Skin: warm and intact Objective Data Vital Signs Vital Signs: Vital Signs Temp Pulse Resp BP Pulse Ox O2 Del Method 06/07/23 14:00 96.7 F L 92 18 117/57 L 99 06/07/23 12:00 81 06/07/23 11:06 Room Air 06/07/23 08:00 85 06/07/23 08:30 Room Air 06/07/23 09:58 Room Air 06/07/23 05:40 97.5 F L 81 18 116/69 98 06/07/23 04:00 92 06/06/23 21:40 98.2 F 83 18 139/87 100 06/06/23 20:00 78 06/06/23 20:00 100 Room Air Intake/Output Intake/Output: Intake & Output 06/04/23 06/05/23 06/06/23 06/07/23 23:59 23:59 23:59 23:59 Intake Total 2564 1500 910 630 Output Total 326 2500 2350 1200 Balance -701 -1000 -1440 -570 Meds/Results Medications: Active Medications Generic Name Dose Route Start Last Admin Trade Name Freq PRN Reason Stop Dose Admin Acetaminophen 650 mg 06/03/23 15:39 Acetaminophen 325 Mg Tablet PO Q6H PRN Mild Pain (1-3) or Fever Amlodipine Besylate 5 mg 06/04/23 09:00 06/07/23 08:39 Amlodipine Besylate 5 Mg Tablet PO 5 mg DAILY CHASIDY Administration Dextrose 12.5 gm 06/03/23 15:39 Dextrose 50% 25 Gm/50 Ml Syringe IV PUSH PRN PRN Hypoglycemia Protocol Dutasteride 0.5 mg 06/04/23 09:00 06/07/23 08:39 Dutasteride 0.5 Mg Capsule PO 0.5 mg QAM CHASIDY Administration Fenofibrate 145 mg 06/04/23 09:00 06/07/23 08:39 Fenofibrat
[2023-06-08] VITALS (7 sets, daily range): BP systolic 114–140; BP diastolic 62–78; PULSE 73–91; RESP 18; TEMP 36.1–37.2; O2SAT 99–100
[2023-06-08] MEDS: LEVOTHYROXINE SODIUM 25 MCG TABLET PO (05:51)
[2023-06-08 06:29] LABS: Basophils Absolute Auto 0.1 K/mm3 (0.0-0.1); Basophils Percent Auto 0.7 % (0.2-1.2); Eosinophils Absolute Auto 0.3 K/mm3 (0-0.3); Eosinophils Percent Auto 3.6 % (0-4.4); Hematocrit 30.6 % (42.0-52.0); Hemoglobin 9.7 g/dL (14.0-18.0); Immature Granulocyte Absolute 0.09 K/mm3 (0.00-0.031); Immature Granulocyte Percent A 1.1 % (0-0.5); Lymphocytes Absolute Auto 1.44 K/mm3 (0.9-3.2); Lymphocytes Percent Auto 17.5 % (18.3-44.2); Mean Corpuscular HGB Conc 31.7 g/dl (32-36); Mean Corpuscular Volume 97.8 fl (80-100); Mean Platelet Volume 11.6 fl (7.4-10.4); Monocytes Absolute Auto 0.9 K/mm3 (0.1-0.6); Monocytes Percent Auto 11.3 % (2.6-8.5); Neutrophils Absolute Auto 5.4 K/mm3 (1.3-6.7); Neutrophils Percent Auto 65.8 % (45.5-73.1); Platelet Count Result 230 k/mm3 (150-375); Red Blood Count 3.13 M/mm3 (4.6-6.20); Red Cell Distribution Width 15.3 % (11.5-14.5); White Blood Count 8.2 K/mm3 (4.5-10.0)
[2023-06-08 06:48] LABS: Albumin Level 3.4 g/dL (3.5-5.1); Anion Gap 10 mmol/L (4-12); Blood Urea Nitrogen 64 mg/dL (9-20); Calcium 8.7 mg/dL (8.4-10.2); Carbon Dioxide 18 mmol/L (22-30); Chloride 111 mmol/L (98-107); Estimated CRCL calculation 11 ml/min; Estimated Glomerular Filt Rate 13; Glucose 97 mg/dL (65-110); Phosphorus 4.7 mg/dL (2.5-4.5); Potassium 4.7 mmol/L (3.4-5.0); Sodium 139 mmol/L (137-145)
[2023-06-08] MEDS: CHOLECALCIFEROL 1,000 UNITS TABLET 2000 UNITS PO (08:50)
[2023-06-08] MEDS: amLODIPine BESYLATE 5 MG TABLET PO (08:51)
[2023-06-08] MEDS: TAMSULOSIN HCL 0.4 MG CAPSULE PO (08:51)
[2023-06-08] MEDS: FENOFIBRATE NANOCRYSTALLIZED 145 MG TABLET PO (08:51)
[2023-06-08] MEDS: MULTIVITAMINS /C LUTEIN (CENTRUM SILVER) TABLET *BKC 1 TAB PO (08:51)
[2023-06-08] MEDS: DUTASTERIDE 0.5 MG CAPSULE PO (08:51)
[2023-06-08] MEDS: levETIRAcetam 500 MG TABLET PO ×2 (08:51→20:16)
--- NOTE | 2023-06-08 11:45 | P.PNNP_ITS ---
Progress Note: A&P Assessment and Plan (1) TABATHA (acute kidney injury): Code(s): N17.9 - Acute kidney failure, unspecified Status: Acute Assessment and Plan: * noted by outpatient labs done in April 2023 * repeat labs on admission similar with creatinine of 5.0mg/dl * presumably secondary to obstructive uropathy/urinary retention based on outpatient renal ultrasound * s/p rodriguez catheter placement * only mild improvement in renal function noted * follow repeat labs and UOP * possible new baseline creatinine?? (2) Stage 3a chronic kidney disease: Code(s): N18.31 - Chronic kidney disease, stage 3a Status: Chronic Assessment and Plan: * baseline creatinine running around 1.3 - 1.4mg/dl * presumably due to hypertension, vascular disease, BPH, and age-related change (3) Bilateral hydronephrosis: Code(s): N13.30 - Unspecified hydronephrosis Status: Acute Assessment and Plan: * as noted by outpatient renal ultrasound * s/p rodriguez catheter placement * good urine output noted * no signifincat improvement in renal function to date * Urology following * s/p cysto and bilateral ureteral stent placement (on 06/07/23) * continue current therapy (4) TIA (transient ischemic attack): Code(s): G45.9 - Transient cerebral ischemic attack, unspecified Status: Acute Assessment and Plan: * suspected based on events on 06/05 afternoon * CT of head negative * MRI/MRA of brain noted * Carotid dopplers reviewd * Neurology following (5) Chronic anemia: Code(s): D64.9 - Anemia, unspecified Status: Chronic Assessment and Plan: * possibly related to TABATHA/CKD * follow trend of H/H (6) Hypertension: Code(s): I10 - Essential (primary) hypertension Status: Chronic Assessment and Plan: * reasonable control at this time * follow trend of hemodynamics Long extensive discussion (> 20 minutes) with the patient as well as family at bedside regarding his ongoing renal dysfunction; given all interventions to date have failed to improve his renal function, my concern is that the duration of the obstructive uropathy may have resulted in some intrinsic damage to his kidneys and subsequent resultant chronic kidney disease given his lack of improvement in renal function to date. I suppose it is still possible that his kidney function could improve but only time will tell. Will continue to follow. Subjective Date/time seen: 06/08/23 11:45 Interval history: Follow-up for acute kidney injury/acute renal failure. No new issues or problems to report at this time; feels reasonably well without any acute concerns or complaints voiced; eating and drinking okay; continues to make good urine output at this time; no other events overnight or earlier this morning. Exam Narrative: General: elderly but WD/WN male in NAD Heart: normal S1 and S2; no rub Lungs: clear to auscultation Abdomen: soft, nontender, nondistended, positive bowel sounds Extremities: no cyanosis or clubbing; no edema Skin: no rash Objective Data Vital Signs Vital Signs: Vital Signs Temp Pulse Resp BP Pulse Ox O2 Del Method 06/08/23 11:00 97.3 F L 86 18 114/68 100 06/08/23 08:00 76 06/08/23 08:50 Room Air 06/08/23 06:00 97 F L 73 18 140/78 100 06/08/23 04:00 86
--- NOTE | 2023-06-08 11:45 | PM.PNNEP ---
Progress Note: A&P Assessment and Plan (1) TABATHA (acute kidney injury): Code(s): N17.9 - Acute kidney failure, unspecified Status: Acute Assessment and Plan: noted by outpatient labs done in April 2023 repeat labs on admission similar with creatinine of 5.0mg/dl presumably secondary to obstructive uropathy/urinary retention based on outpatient renal ultrasound s/p rodriguez catheter placement only mild improvement in renal function noted follow repeat labs and UOP possible new baseline creatinine?? (2) Stage 3a chronic kidney disease: Code(s): N18.31 - Chronic kidney disease, stage 3a Status: Chronic Assessment and Plan: baseline creatinine running around 1.3 - 1.4mg/dl presumably due to hypertension, vascular disease, BPH, and age-related change (3) Bilateral hydronephrosis: Code(s): N13.30 - Unspecified hydronephrosis Status: Acute Assessment and Plan: as noted by outpatient renal ultrasound s/p rodriguez catheter placement good urine output noted no signifincat improvement in renal function to date Urology following s/p cysto and bilateral ureteral stent placement (on 06/07/23) continue current therapy (4) TIA (transient ischemic attack): Code(s): G45.9 - Transient cerebral ischemic attack, unspecified Status: Acute Assessment and Plan: suspected based on events on 06/[address] of head negative MRI/MRA of brain noted Carotid dopplers reviewd Neurology following (5) Chronic anemia: Code(s): D64.9 - Anemia, unspecified Status: Chronic Assessment and Plan: possibly related to TABATHA/CKD follow trend of H/H (6) Hypertension: Code(s): I10 - Essential (primary) hypertension Status: Chronic Assessment and Plan: reasonable control at this time follow trend of hemodynamics Long extensive discussion (> 20 minutes) with the patient as well as family at bedside regarding his ongoing renal dysfunction; given all interventions to date have failed to improve his renal function, my concern is that the duration of the obstructive uropathy may have resulted in some intrinsic damage to his kidneys and subsequent resultant chronic kidney disease given his lack of improvement in renal function to date. I suppose it is still possible that his kidney function could improve but only time will tell. Will continue to follow. Subjective Date/time seen: 06/08/23 11:45 Interval history: Follow-up for acute kidney injury/acute renal failure. No new issues or problems to report at this time; feels reasonably well without any acute concerns or complaints voiced; eating and drinking okay; continues to make good urine output at this time; no other events overnight or earlier this morning. Exam Narrative: General: elderly but WD/WN male in NAD Heart: normal S1 and S2; no rub Lungs: clear to auscultation Abdomen: soft, nontender, nondistended, positive bowel sounds Extremities: no cyanosis or clubbing; no edema Skin: no rash Objective Data Vital Signs Vital Signs: Vital Signs Temp Pulse Resp BP Pulse Ox O2 Del Method 06/08/23 11:00 97.3 F L 86 18 114/68 100 06/08/23 08:00 76 06/08/23 08:50 Room Air 06/08/23 06:00 97 F L 73 18 140/78 100 06/08/23 04:00 86 06/08/23 00:00 82 06/07/23 20:00 84 06/07/23 22:10 96.8 F L 95 20 121/69 99 06/07/23 20:00 99 Room Air 06/07/23 16:00 80 Intake/Output Intake/Output: Intake & Output 06/05/23 06/06/23 06/07/23 06/08/23 23:59 23:59 23:59 23:59 Intake Total 1500 910 990 726 Output Total 2500 2350 1850 700 Balance -1000 -1440 -860 26 Meds/Results Medications: Active Medications Generic Name Dose Route Start Last Admin Trade Name Freq PRN Reason Stop Dose Admin Acetaminophen 650 mg 06/03/23 15:39 Acetaminophen 325 Mg Tablet PO Q6H PRN
--- NOTE | 2023-06-08 14:04 | P.PNIM_ITS ---
Progress Note: A&P Assessment and Plan (1) Acute on chronic kidney failure: Code(s): N17.9 - Acute kidney failure, unspecified; N18.9 - Chronic kidney disease, unspecified Status: Acute Assessment and Plan: 06/04/2023: * Renal ultrasound from 06/01/2023 showing prominent bilateral hydronephrosis, bilateral renal atrophy. * Repeat renal ultrasound shows improvement with now mild to moderate bilateral hydronephrosis * Initial BUN 69, creatinine 5.1. * BUN 73, creatinine 4.5 today * EGFR is 12 * Nephrology consulted * Continue to hold your Irbesartan 06/05/2023: * Urology seen patient today and plan is to take patient tomorrow for cystoscopy and bilateral ureteral stent placement pending incident today. * Creatinine any is 4.6, EGFR is 12 * Nephrology on board as well * Continue to hold ARB 06/06/23: * Urology following * Creatinine down to 4.0 today * Plan for cystoscopy with stent placement with Urology Services 06/07/23: * Patient is post op day 1 from cystoscopy with bilateral ureter stents * Creatinine today is 4.1 * Urology following * Ho is in place draining pink-tinged urine * Continue to trend 06/08/2023: * Patient is postop day 2 from cystoscopy with bilateral ureter stent placement * Creatinine still increasing and is currently 4.3 * Urology recommends a renal ultrasound which will obtain today * Nephrology is following * He will continue with his Ho catheter at this time, he is making adequate urine * Continue to trend (2) Urinary retention: Code(s): R33.9 - Retention of urine, unspecified Status: Acute Assessment and Plan: 06/04/23: * Continue Flomax and Avodart 06/05/2023: * No change to current treatment plan * Continue with Ho catheter 06/07/23: * No change to current treatment plan (3) TIA (transient ischemic attack): Code(s): G45.9 - Transient cerebral ischemic attack, unspecified Status: Acute Assessment and Plan: 06/05/23: * Found patient with left sided weakness, facial droop, slurred speech and eyes deviated to the left. Once patient was back from CT he was back to his baseline, able to move all 4 extremities, and facial features were symmetric al. * NIH score > 25 * CT of head negative for any acute infarct * MRA of the brain without contrast ordered * Troponin negative, BG 129, Last Magnesium 2.1, K+ 4.3 * Start continuous telemetry * EKG shown NSR * ABG essentially unremarkable * Plan for MRI of brain and EEG tomorrow * Neurology consulted * Discussed plan of care with Dr. Peralta (Front Office Secretary) * Will get Echo * Urology updated on events from today 06/06/2023: * Neurology following * Carotid Doppler study showing less than 50% stenosis bilateral internal carotid arteries * MRA of the brain was normal * MRI of the brain showed extensive nonspecific cerebral white matter disease which represents chronic small vessel ischemic disease * EEG results are still pending * Patient was started on Keppra per Neurology * Will also get echo today 06/07/23: * EEG * Neurology following * No neuro deficits today * No change to treatment plan 06/08/2023: * No neuro deficits again today * EEG was negative for any seizure activity, essentially normal (4) Hypertension: Code(s): I10 - Essential (primary) hypertension Status: Chronic Assessment and Plan: 06/04/2023: * Blood pressure 135/79 to 165/79 * Continue amlodipine 06/05/2023: * No change to current carmen
--- NOTE | 2023-06-08 14:04 | PM.IMPN ---
Progress Note: A&P Assessment and Plan (1) Acute on chronic kidney failure: Code(s): N17.9 - Acute kidney failure, unspecified; N18.9 - Chronic kidney disease, unspecified Status: Acute Assessment and Plan: 06/04/2023: Renal ultrasound from 06/01/2023 showing prominent bilateral hydronephrosis, bilateral renal atrophy. Repeat renal ultrasound shows improvement with now mild to moderate bilateral hydronephrosis Initial BUN 69, creatinine 5.1. BUN 73, creatinine 4.5 today EGFR is 12 Nephrology consulted Continue to hold your Irbesartan 06/05/2023: Urology seen patient today and plan is to take patient tomorrow for cystoscopy and bilateral ureteral stent placement pending incident today. Creatinine any is 4.6, EGFR is 12 Nephrology on board as well Continue to hold ARB 06/06/23: Urology following Creatinine down to 4.0 today Plan for cystoscopy with stent placement with Urology Services 06/07/23: Patient is post op day 1 from cystoscopy with bilateral ureter stents Creatinine today is 4.1 Urology following Ho is in place draining pink-tinged urine Continue to trend 06/08/2023: Patient is postop day 2 from cystoscopy with bilateral ureter stent placement Creatinine still increasing and is currently 4.3 Urology recommends a renal ultrasound which will obtain today Nephrology is following He will continue with his Ho catheter at this time, he is making adequate urine Continue to trend (2) Urinary retention: Code(s): R33.9 - Retention of urine, unspecified Status: Acute Assessment and Plan: 06/04/23: Continue Flomax and Avodart 06/05/2023: No change to current treatment plan Continue with Ho catheter 06/07/23: No change to current treatment plan (3) TIA (transient ischemic attack): Code(s): G45.9 - Transient cerebral ischemic attack, unspecified Status: Acute Assessment and Plan: 06/05/23: Found patient with left sided weakness, facial droop, slurred speech and eyes deviated to the left. Once patient was back from CT he was back to his baseline, able to move all 4 extremities, and facial features were symmetrical. NIH score > 25 CT of head negative for any acute infarct MRA of the brain without contrast ordered Troponin negative, BG 129, Last Magnesium 2.1, K+ 4.3 Start continuous telemetry EKG shown NSR ABG essentially unremarkable Plan for MRI of brain and EEG tomorrow Neurology consulted Discussed plan of care with Dr. Peralta (Full Roll Inspector) Will get Echo Urology updated on events from today 06/06/2023: Neurology following Carotid Doppler study showing less than 50% stenosis bilateral internal carotid arteries MRA of the brain was normal MRI of the brain showed extensive nonspecific cerebral white matter disease which represents chronic small vessel ischemic disease EEG results are still pending Patient was started on Keppra per Neurology Will also get echo today 06/07/23: EEG Neurology following No neuro deficits today No change to treatment plan 06/08/2023: No neuro deficits again today EEG was negative for any seizure activity, essentially normal (4) Hypertension: Code(s): I10 - Essential (primary) hypertension Status: Chronic Assessment and Plan: 06/04/2023: Blood pressure 135/79 to 165/79 Continue amlodipine 06/05/2023: No change to current treatment plan (5) Hypothyroidism: Code(s): E03.9 - Hypothyroidism, unspecified Status: Chronic Assessment and Plan: 06/04/23: TSH 11.5, free T4 0.85 Continue Synthroid 06/05/2023: No change to current treatment plan (6) Dyslipidemia: Code(s): E78.5 - Hyperlipidemia, unspecified Status: Chronic Assessment and Plan: 06/04/2023: Continue fenofibrate 06/05/2023: No change to current treatment plan (7) Chronic anemia: Code(s): D64.9 - Anemia, unspecified
[2023-06-09] VITALS: PULSE 88
[2023-06-09 05:57] VITALS: BP 105/60; PULSE 79; RESP 16; TEMP 36.2; O2SAT 96
[2023-06-09] MEDS: LEVOTHYROXINE SODIUM 25 MCG TABLET PO (06:33)
--- NOTE | 2023-06-09 08:26 | P.PNIM_ITS ---
Progress Note: A&P Assessment and Plan (1) Acute on chronic kidney failure: Code(s): N17.9 - Acute kidney failure, unspecified; N18.9 - Chronic kidney disease, unspecified Status: Acute Assessment and Plan: 06/04/2023: * Renal ultrasound from 06/01/2023 showing prominent bilateral hydronephrosis, bilateral renal atrophy. * Repeat renal ultrasound shows improvement with now mild to moderate bilateral hydronephrosis * Initial BUN 69, creatinine 5.1. * BUN 73, creatinine 4.5 today * EGFR is 12 * Nephrology consulted * Continue to hold your Irbesartan 06/05/2023: * Urology seen patient today and plan is to take patient tomorrow for cystoscopy and bilateral ureteral stent placement pending incident today. * Creatinine any is 4.6, EGFR is 12 * Nephrology on board as well * Continue to hold ARB 06/06/23: * Urology following * Creatinine down to 4.0 today * Plan for cystoscopy with stent placement with [facility] 06/07/23: * Patient is post op day 1 from cystoscopy with bilateral ureter stents * Creatinine today is 4.1 * Urology following * Ho is in place draining pink-tinged urine * Continue to trend 06/08/2023: * Patient is postop day 2 from cystoscopy with bilateral ureter stent placement * Creatinine still increasing and is currently 4.3 * Urology recommends a renal ultrasound which will obtain today * Nephrology is following * He will continue with his Ho catheter at this time, he is making adequate urine * Continue to trend 06/09/2023 Clinically patient feeling much better. Yesterday creatinine was 4.3. Repeat CT and or for tomorrow. Plan is to continue current treatment creatinine improves. (2) Urinary retention: Code(s): R33.9 - Retention of urine, unspecified Status: Acute Assessment and Plan: 06/09/23: * Continue Flomax and Avodart (3) TIA (transient ischemic attack): Code(s): G45.9 - Transient cerebral ischemic attack, unspecified Status: Acute Assessment and Plan: 06/09/2023: * No neuro deficits again today * EEG was negative for any seizure activity, essentially normal * Monitor closely. (4) Hypertension: Code(s): I10 - Essential (primary) hypertension Status: Chronic Assessment and Plan: 06/09/2023: * Stable on current medications: Will continue current treatment. Monitor closely. (5) Hypothyroidism: Code(s): E03.9 - Hypothyroidism, unspecified Status: Chronic Assessment and Plan: 06/09/23: * Stable on current medications: Will continue current treatment. Monitor closely. (6) Dyslipidemia: Code(s): E78.5 - Hyperlipidemia, unspecified Status: Chronic Assessment and Plan: 06/09/2023: * Stable on current medications: Will continue current treatment. Monitor closely. (7) Chronic anemia: Code(s): D64.9 - Anemia, unspecified Status: Acute Assessment and Plan: 06/09/2023: * Stable on current medications: Will continue current treatment. Monitor closely. Subjective Date/time seen: 06/09/23 08:26 Patient was seen during the morning rounds today. Patient is feeling much better. No shortness of breath or chest pain. Mood stable. Review of Systems Review of Systems: 12 systems were reviewed and are negativ e except for as per HPI. All systems reviewed & are unremarkable except as noted in HPI and below Constitutio
--- NOTE | 2023-06-09 08:26 | PM.IMPN ---
Progress Note: A&P Assessment and Plan (1) Acute on chronic kidney failure: Code(s): N17.9 - Acute kidney failure, unspecified; N18.9 - Chronic kidney disease, unspecified Status: Acute Assessment and Plan: 06/04/2023: Renal ultrasound from 06/01/2023 showing prominent bilateral hydronephrosis, bilateral renal atrophy. Repeat renal ultrasound shows improvement with now mild to moderate bilateral hydronephrosis Initial BUN 69, creatinine 5.1. BUN 73, creatinine 4.5 today EGFR is 12 Nephrology consulted Continue to hold your Irbesartan 06/05/2023: Urology seen patient today and plan is to take patient tomorrow for cystoscopy and bilateral ureteral stent placement pending incident today. Creatinine any is 4.6, EGFR is 12 Nephrology on board as well Continue to hold ARB 06/06/23: Urology following Creatinine down to 4.0 today Plan for cystoscopy with stent placement with [facility] 06/07/23: Patient is post op day 1 from cystoscopy with bilateral ureter stents Creatinine today is 4.1 Urology following Ho is in place draining pink-tinged urine Continue to trend 06/08/2023: Patient is postop day 2 from cystoscopy with bilateral ureter stent placement Creatinine still increasing and is currently 4.3 Urology recommends a renal ultrasound which will obtain today Nephrology is following He will continue with his Ho catheter at this time, he is making adequate urine Continue to trend 06/09/2023 Clinically patient feeling much better. Yesterday creatinine was 4.3. Repeat CT and or for tomorrow. Plan is to continue current treatment creatinine improves. (2) Urinary retention: Code(s): R33.9 - Retention of urine, unspecified Status: Acute Assessment and Plan: 06/09/23: Continue Flomax and Avodart (3) TIA (transient ischemic attack): Code(s): G45.9 - Transient cerebral ischemic attack, unspecified Status: Acute Assessment and Plan: 06/09/2023: No neuro deficits again today EEG was negative for any seizure activity, essentially normal Monitor closely. (4) Hypertension: Code(s): I10 - Essential (primary) hypertension Status: Chronic Assessment and Plan: 06/09/2023: Stable on current medications: Will continue current treatment. Monitor closely. (5) Hypothyroidism: Code(s): E03.9 - Hypothyroidism, unspecified Status: Chronic Assessment and Plan: 06/09/23: Stable on current medications: Will continue current treatment. Monitor closely. (6) Dyslipidemia: Code(s): E78.5 - Hyperlipidemia, unspecified Status: Chronic Assessment and Plan: 06/09/2023: Stable on current medications: Will continue current treatment. Monitor closely. (7) Chronic anemia: Code(s): D64.9 - Anemia, unspecified Status: Acute Assessment and Plan: 06/09/2023: Stable on current medications: Will continue current treatment. Monitor closely. Subjective Date/time seen: 06/09/23 08:26 Patient was seen during the morning rounds today. Patient is feeling much better. No shortness of breath or chest pain. Mood stable. Review of Systems Review of Systems: 12 systems were reviewed and are negative except for as per HPI. All systems reviewed & are unremarkable except as noted in HPI and below Constitutional: Constitutional: Reports as per HPI and Reports no additional constitutional complaints Eyes: Eyes: Reports as per HPI and Reports no additional eye complaints ENT: Reports system reviewed and no additional complaints, except as documented and Reports as per HPI Cardiovascular: Cardiovascular: Reports as per HPI and Reports no additional cardiovascular complaints Respiratory: Respiratory: Reports as per HPI and Reports no additional respiratory complaints Gastrointestinal: Gastrointestinal: Reports as per HPI and Reports no additional gastrointestinal compla
[2023-06-09] MEDS: DUTASTERIDE 0.5 MG CAPSULE PO (09:17)
[2023-06-09] MEDS: FENOFIBRATE NANOCRYSTALLIZED 145 MG TABLET PO (09:17)
[2023-06-09] MEDS: levETIRAcetam 500 MG TABLET PO ×2 (09:17→19:47)
[2023-06-09] MEDS: MULTIVITAMINS /C LUTEIN (CENTRUM SILVER) TABLET *BKC 1 TAB PO (09:22)
[2023-06-09] MEDS: TAMSULOSIN HCL 0.4 MG CAPSULE PO (09:22)
[2023-06-09] MEDS: CHOLECALCIFEROL 1,000 UNITS TABLET 2000 UNITS PO (09:22)
[2023-06-09 09:29] LABS: Albumin Level 3.8 g/dL (3.5-5.1); Anion Gap 9 mmol/L (4-12); Blood Urea Nitrogen 64 mg/dL (9-20); Calcium 8.9 mg/dL (8.4-10.2); Carbon Dioxide 19 mmol/L (22-30); Chloride 110 mmol/L (98-107); Estimated CRCL calculation 11 ml/min; Estimated Glomerular Filt Rate 13; Glucose 111 mg/dL (65-110); Phosphorus 4.2 mg/dL (2.5-4.5); Potassium 4.8 mmol/L (3.4-5.0); Sodium 138 mmol/L (137-145)
--- NOTE | 2023-06-09 10:48 | WPDUROPN2 ---
Progress Note: A&P Assessment and Plan (1) BPH (benign prostatic hyperplasia): Code(s): N40.0 - Benign prostatic hyperplasia without lower urinary tract symptoms Status: Acute (2) Bilateral hydronephrosis: Code(s): N13.30 - Unspecified hydronephrosis Status: Acute Assessment and Plan: Tolerating stent. U/O remains excellent. creatinine still remains somewhat slow to resolve suspect may be medical renal dysfunction in setting of longstanding obstruction, he is maximally drained at this point and with the sleeve stent and Ho in place. If okay with Nephrology okay for discharge from Urology standpoint Will plan to leave stents 4-6 weeks. Following removal he'll need careful observation for recurrence of ureteral obstruction. patient should call office to schedule follow-up with Dr. Urbano in the next several weeks Subjective Subjective Date/Time Seen: 06/09/23 10:48 Interval history: no major urologic events overnight. Called back to re-evaluate patient. Ho catheter remains in place draining clear urine. Creatinine has been somewhat slow to improve and remains at 4.3 today. Despite bilateral stents and Ho decompression. He has no major urologic complaints Exam Narrative: lying in bed no apparent distress, alert conversational Resp: Effort & Inspection: normal respiratory effort Cardio: Rate: regular rate GI: Inspection: non-distended GI Palp: Yes Soft to palpation and No Tenderness to palpation present (GI) Urinary Catheter: Urinary Catheter: patent and draining ( clear yellow urine) Objective Data Vital Signs Vital Signs: Vital Signs - 24 hr 06/08/23 12:00 06/08/23 14:00 06/08/23 21:31 Temperature 36.3 C L 37.2 C Pulse Rate 87 86 91 Respiratory Rate 18 18 Blood Pressure 114/68 138/62 Pulse Oximetry 100 99 06/09/23 00:00 06/09/23 05:57 Temperature 36.2 C L Pulse Rate 88 79 Respiratory Rate 16 Blood Pressure 105/60 Pulse Oximetry 96 Intake/Output Intake/Output: Intake & Output 06/06/23 06/07/23 06/08/23 06/09/23 23:59 23:59 23:59 23:59 Intake Total 436 298 4364 290 Output Total 2350 1850 1250 800 Balance -1440 -860 176 -510 Meds/Results Medications: Active Medications Generic Name Dose Route Start Last Admin Trade Name Randa PRN Reason Stop Dose Admin Acetaminophen 650 mg 06/03/23 15:39 Acetaminophen 325 Mg Tablet PO Q6H PRN Mild Pain (1-3) or Fever Amlodipine Besylate 5 mg 06/04/23 09:00 06/08/23 08:51 Amlodipine Besylate 5 Mg Tablet PO 5 mg DAILY CHASIDY Administration Dextrose 12.5 gm 06/03/23 15:39 Dextrose 50% 25 Gm/50 Ml Syringe IV PUSH PRN PRN Hypoglycemia Protocol Dutasteride 0.5 mg 06/04/23 09:00 06/09/23 09:17 Dutasteride 0.5 Mg Capsule PO 0.5 mg QAM CHASIDY Administration Fenofibrate 145 mg 06/04/23 09:00 06/09/23 09:17 Fenofibrate Nanocrystallized 145 Mg Tablet PO 145 mg DAILY CHASIDY Administration Glucagon 1 mg 06/03/23 15:39 Glucagon For Inj 1 Mg Vial IM PRN PRN Hypoglycemia Protocol Glucose 15 gm 06/03/23 15:39 Glucose Oral Gel 15 Gm Of Glucse In 37.5 Gm Tube PO PRN PRN Hypoglycemia Protocol Dextrose 1,000 mls @ 100 mls/hr 06/03/23 15:39 Dextrose 5% 1,000 Ml IVPB PRN PRN Hypoglycemia Protocol Levetiracetam 500 mg 06/05/23 15:55 06/09/23 09:17 Levetiracetam 500 Mg Tablet PO 500 mg Q12HR CHASIDY Administration Levothyroxine Sodium 25 mcg 06/04/23 06:30 06/09/23 06:33 Levothyroxine Sodium 25 Mcg Tablet PO 25 mcg DAILY@0630 CHASIDY Administration Multivitamins/Minerals 1 tab 06/04/23 09:00 06/09/23 09:22 Multivitamins /C Lutein (Centrum Silver) Tablet *Bkc PO 1 tab DAILY CHASIDY Administration Tamsulosin HCl 0.4 mg 06/04/23 09:00 06/09/23 09:22 Tamsulosin Hcl 0.4 Mg Capsule PO 0.4 mg QAM CHASIDY Administration Vitamin D 2,000 units 06/04/23
--- NOTE | 2023-06-09 11:32 | P.PNNP_ITS ---
Progress Note: A&P Assessment and Plan (1) TABATHA (acute kidney injury): Code(s): N17.9 - Acute kidney failure, unspecified Status: Acute Assessment and Plan: * noted by outpatient labs done in April 2023 * repeat labs on admission similar with creatinine of 5.0mg/dl * presumably secondary to obstructive uropathy/urinary retention based on outpatient renal ultrasound * s/p rodriguez catheter placement * only mild improvement in renal function noted * follow repeat labs and UOP * possible new baseline creatinine?? (2) Stage 3a chronic kidney disease: Code(s): N18.31 - Chronic kidney disease, stage 3a Status: Chronic Assessment and Plan: * baseline creatinine running around 1.3 - 1.4mg/dl * presumably due to hypertension, vascular disease, BPH, and age-related change (3) Bilateral hydronephrosis: Code(s): N13.30 - Unspecified hydronephrosis Status: Acute Assessment and Plan: * as noted by outpatient renal ultrasound * s/p rodriguez catheter placement * good urine output noted * no signifincat improvement in renal function to date * Urology following * s/p cysto and bilateral ureteral stent placement (on 06/07/23) * continue current therapy (4) TIA (transient ischemic attack): Code(s): G45.9 - Transient cerebral ischemic attack, unspecified Status: Acute Assessment and Plan: * suspected based on events on 06/05 afternoon * CT of head negative * MRI/MRA of brain noted * Carotid dopplers reviewd * Neurology following (5) Chronic anemia: Code(s): D64.9 - Anemia, unspecified Status: Chronic Assessment and Plan: * possibly related to TABATHA/CKD * follow trend of H/H (6) Hypertension: Code(s): I10 - Essential (primary) hypertension Status: Chronic Assessment and Plan: * reasonable control at this time * follow trend of hemodynamics Not opposed to discharge from renal/kidney perspective if otherwise medically stable -- will need follow-up with myself (already scheduled) and urology on discharge. Will continue to follow. Subjective Date/time seen: 06/09/23 11:32 Interval history: Follow-up for acute kidney injury/acute renal failure. No apparent distress noted at this the time of my visit; no issues/events overnight or earlier this morning; renal function remains stable/unchanged at this time; reasonably urine output noted as well. Exam Narrative: General: elderly but WD/WN male in NAD Heart: normal S1 and S2; no rub Lungs: clear to auscultation Abdomen: soft, nontender, nondistended, positive bowel sounds Extremities: no cyanosis or clubbing; no edema Skin: no nodules Objective Data Vital Signs Vital Signs: Vital Signs - 24 hr 06/08/23 21:31 06/09/23 00:00 06/09/23 05:57 Temperature 99 F 97.1 F L Pulse Rate 91 88 79 Respiratory Rate 18 16 Blood Pressure 138/62 105/60 Pulse Oximetry 99 96 Intake/Output Intake/Output: Intake & Output 06/06/23 06/07/23 06/08/23 06/09/23 23:59 23:59 23:59 23:59 Intake Total 846 062 5679 530 Output Total 2350 1850 1250 800 Balance -1440 -860 176 -270 Meds/Results Medications: Active Medications Generic Name Dose Route Start La
--- NOTE | 2023-06-09 11:32 | PM.PNNEP ---
Progress Note: A&P Assessment and Plan (1) TABATHA (acute kidney injury): Code(s): N17.9 - Acute kidney failure, unspecified Status: Acute Assessment and Plan: noted by outpatient labs done in April 2023 repeat labs on admission similar with creatinine of 5.0mg/dl presumably secondary to obstructive uropathy/urinary retention based on outpatient renal ultrasound s/p rodriguez catheter placement only mild improvement in renal function noted follow repeat labs and UOP possible new baseline creatinine?? (2) Stage 3a chronic kidney disease: Code(s): N18.31 - Chronic kidney disease, stage 3a Status: Chronic Assessment and Plan: baseline creatinine running around 1.3 - 1.4mg/dl presumably due to hypertension, vascular disease, BPH, and age-related change (3) Bilateral hydronephrosis: Code(s): N13.30 - Unspecified hydronephrosis Status: Acute Assessment and Plan: as noted by outpatient renal ultrasound s/p rodriguez catheter placement good urine output noted no signifincat improvement in renal function to date Urology following s/p cysto and bilateral ureteral stent placement (on 06/07/23) continue current therapy (4) TIA (transient ischemic attack): Code(s): G45.9 - Transient cerebral ischemic attack, unspecified Status: Acute Assessment and Plan: suspected based on events on 06/[address] of head negative MRI/MRA of brain noted Carotid dopplers reviewd Neurology following (5) Chronic anemia: Code(s): D64.9 - Anemia, unspecified Status: Chronic Assessment and Plan: possibly related to TABATHA/CKD follow trend of H/H (6) Hypertension: Code(s): I10 - Essential (primary) hypertension Status: Chronic Assessment and Plan: reasonable control at this time follow trend of hemodynamics Not opposed to discharge from renal/kidney perspective if otherwise medically stable -- will need follow-up with myself (already scheduled) and urology on discharge. Will continue to follow. Subjective Date/time seen: 06/09/23 11:32 Interval history: Follow-up for acute kidney injury/acute renal failure. No apparent distress noted at this the time of my visit; no issues/events overnight or earlier this morning; renal function remains stable/unchanged at this time; reasonably urine output noted as well. Exam Narrative: General: elderly but WD/WN male in NAD Heart: normal S1 and S2; no rub Lungs: clear to auscultation Abdomen: soft, nontender, nondistended, positive bowel sounds Extremities: no cyanosis or clubbing; no edema Skin: no nodules Objective Data Vital Signs Vital Signs: Vital Signs - 24 hr 06/08/23 21:31 06/09/23 00:00 06/09/23 05:57 Temperature 99 F 97.1 F L Pulse Rate 91 88 79 Respiratory Rate 18 16 Blood Pressure 138/62 105/60 Pulse Oximetry 99 96 Intake/Output Intake/Output: Intake & Output 06/06/23 06/07/23 06/08/23 06/09/23 23:59 23:59 23:59 23:59 Intake Total 001 207 1537 530 Output Total 2350 1850 1250 800 Balance -1440 -860 176 -270 Meds/Results Medications: Active Medications Generic Name Dose Route Start Last Admin Trade Name Freq PRN Reason Stop Dose Admin Acetaminophen 650 mg 06/03/23 15:39 Acetaminophen 325 Mg Tablet PO Q6H PRN Mild Pain (1-3) or Fever Amlodipine Besylate 5 mg 06/04/23 09:00 06/08/23 08:51 Amlodipine Besylate 5 Mg Tablet PO 5 mg DAILY CHASIDY Administration Dextrose 12.5 gm 06/03/23 15:39 Dextrose 50% 25 Gm/50 Ml Syringe IV PUSH PRN PRN Hypoglycemia Protocol Dutasteride 0.5 mg 06/04/23 09:00 06/09/23 09:17 Dutasteride 0.5 Mg Capsule PO 0.5 mg QAM CHASIDY Administration Fenofibrate 145 mg 06/04/23 09:00 06/09/23 09:17 Fenofibrate Nanocrystallized 145 Mg Tablet PO 145 mg DAILY CHASIDY Administration Glucagon 1 mg 06/03/23 15:39 Glucagon
[2023-06-09 14:00] VITALS: BP 134/57; PULSE 94; RESP 16; TEMP 36.6; O2SAT 98
[2023-06-09] MEDS: amLODIPine BESYLATE 5 MG TABLET PO (14:36)
[2023-06-09 15:30] VITALS: O2SAT 98
[2023-06-09 22:00] VITALS: BP 106/58; PULSE 93; RESP 14; TEMP 36.7; O2SAT 99
[2023-06-10 06:00] VITALS: BP 122/53; PULSE 80; RESP 14; TEMP 36.6; O2SAT 98
[2023-06-10 06:08] LABS: Alanine Aminotransferase 11 U/L (6-50); Albumin Level 3.6 g/dL (3.5-5.1); Alkaline Phosphatase 42 U/L (38-126); Anion Gap 11 mmol/L (4-12); Aspartate Amino Transferase 24 U/L (17-59); Bilirubin,Total 0.5 mg/dL (0.2-1.3); Blood Urea Nitrogen 66 mg/dL (9-20); Calcium 8.9 mg/dL (8.4-10.2); Carbon Dioxide 18 mmol/L (22-30); Chloride 111 mmol/L (98-107); Estimated CRCL calculation 11 ml/min; Estimated Glomerular Filt Rate 13; Glucose 98 mg/dL (65-110); Potassium 4.8 mmol/L (3.4-5.0); Sodium 140 mmol/L (137-145)
--- NOTE | 2023-06-10 06:17 | WPDUROPN2 ---
Progress Note: A&P Assessment and Plan (1) BPH (benign prostatic hyperplasia): Code(s): N40.0 - Benign prostatic hyperplasia without lower urinary tract symptoms Status: Acute (2) Bilateral hydronephrosis: Code(s): N13.30 - Unspecified hydronephrosis Status: Acute Assessment and Plan: Renal function unchanged despite maximal urinary drainage (Ho catheter and bilateral ureteral stent) -> suggest underlying medical-renal disease. Will remove catheter / plan stent removal as outpatient in ~4 weeks. Subjective Subjective Date/Time Seen: 06/10/23 06:17 Interval history: No complaints, urine clear Review of Systems Cardiovascular: Cardiovascular: Denies chest pain, Denies lightheadedness, Denies palpitations and Denies dyspnea Respiratory: Respiratory: Denies dyspnea Gastrointestinal: Gastrointestinal: Denies diarrhea, Denies nausea and Denies vomiting Genitourinary: Genitourinary: Denies hematuria and Denies dysuria Endocrine: Endocrine: Denies palpitations Exam Const: General: no acute distress Resp: Effort & Inspection: normal respiratory effort GI: Inspection: non-distended GI Palp: No abdominal tenderness and No Guarding due to palpation present (GI) Auscultation: normal bowel sounds Objective Data Vital Signs Vital Signs: Vital Signs - 24 hr 06/09/23 14:00 06/09/23 09:20 06/09/23 15:30 Temperature 98 F Pulse Rate 94 Respiratory Rate 16 Blood Pressure 134/57 L Pulse Oximetry 98 98 Oxygen Delivery Room Air Room Air 06/09/23 22:00 Temperature 98.0 F Pulse Rate 93 Respiratory Rate 14 Blood Pressure 106/58 L Pulse Oximetry 99 Oxygen Delivery Intake/Output Intake/Output: Intake & Output 06/07/23 06/08/23 06/09/23 06/10/23 23:59 23:59 23:59 23:59 Intake Total 990 1426 1570 Output Total 1850 1250 1750 Balance -860 176 -180 Meds/Results Medications: Active Medications Generic Name Dose Route Start Last Admin Trade Name Freq PRN Reason Stop Dose Admin Acetaminophen 650 mg 06/03/23 15:39 Acetaminophen 325 Mg Tablet PO Q6H PRN Mild Pain (1-3) or Fever Amlodipine Besylate 5 mg 06/04/23 09:00 06/09/23 14:36 Amlodipine Besylate 5 Mg Tablet PO 5 mg DAILY CHASIDY Administration Dextrose 12.5 gm 06/03/23 15:39 Dextrose 50% 25 Gm/50 Ml Syringe IV PUSH PRN PRN Hypoglycemia Protocol Dutasteride 0.5 mg 06/04/23 09:00 06/09/23 09:17 Dutasteride 0.5 Mg Capsule PO 0.5 mg QAM CHASIDY Administration Fenofibrate 145 mg 06/04/23 09:00 06/09/23 09:17 Fenofibrate Nanocrystallized 145 Mg Tablet PO 145 mg DAILY CHASIDY Administration Glucagon 1 mg 06/03/23 15:39 Glucagon For Inj 1 Mg Vial IM PRN PRN Hypoglycemia Protocol Glucose 15 gm 06/03/23 15:39 Glucose Oral Gel 15 Gm Of Glucse In 37.5 Gm Tube PO PRN PRN Hypoglycemia Protocol Dextrose 1,000 mls @ 100 mls/hr 06/03/23 15:39 Dextrose 5% 1,000 Ml IVPB PRN PRN Hypoglycemia Protocol Levetiracetam 500 mg 06/05/23 15:55 06/09/23 19:47 Levetiracetam 500 Mg Tablet PO 500 mg Q12HR CHASIDY Administration Levothyroxine Sodium 25 mcg 06/04/23 06:30 06/09/23 06:33 Levothyroxine Sodium 25 Mcg Tablet PO 25 mcg DAILY@0630 CHASIDY Administration Multivitamins/Minerals 1 tab 06/04/23 09:00 06/09/23 09:22 Multivitamins /C Lutein (Centrum Silver) Tablet *Bkc PO 1 tab DAILY CHASIDY Administration Tamsulosin HCl 0.4 mg 06/04/23 09:00 06/09/23 09:22 Tamsulosin Hcl 0.4 Mg Capsule PO 0.4 mg QAM CHASIDY Administration Vitamin D 2,000 units 06/04/23 09:00 06/09/23 09:22 Cholecalciferol 1,000 Units Tablet PO 2,000 units DAILY CHASIDY Administration Radiology Results: ITS Impressions Head CT 06/05/23 16:32 IMPRESSION: 1. Unchanged extensive nonspecific cerebral white matter disease, which likely represents chronic small vessel ischemic disease.
[2023-06-10] MEDS: LEVOTHYROXINE SODIUM 25 MCG TABLET PO (06:35)
[2023-06-10] MEDS: DUTASTERIDE 0.5 MG CAPSULE PO (08:38)
[2023-06-10] MEDS: TAMSULOSIN HCL 0.4 MG CAPSULE PO (08:38)
[2023-06-10] MEDS: CHOLECALCIFEROL 1,000 UNITS TABLET 2000 UNITS PO (08:38)
[2023-06-10] MEDS: amLODIPine BESYLATE 5 MG TABLET PO (08:38)
[2023-06-10] MEDS: FENOFIBRATE NANOCRYSTALLIZED 145 MG TABLET PO (08:38)
[2023-06-10] MEDS: levETIRAcetam 500 MG TABLET PO ×2 (08:38→21:08)
[2023-06-10] MEDS: MULTIVITAMINS /C LUTEIN (CENTRUM SILVER) TABLET *BKC 1 TAB PO (08:38)
--- NOTE | 2023-06-10 10:02 | PM.PNNEP ---
Progress Note: A&P Assessment and Plan (1) TABATHA (acute kidney injury): Code(s): N17.9 - Acute kidney failure, unspecified Status: Acute Assessment and Plan: noted by outpatient labs done in April 2023 repeat labs on admission similar with creatinine of 5.0mg/dl presumably secondary to obstructive uropathy/urinary retention based on outpatient renal ultrasound s/p rodriguez catheter placement only mild improvement in renal function noted follow repeat labs and UOP possible new baseline creatinine?? (2) Stage 3a chronic kidney disease: Code(s): N18.31 - Chronic kidney disease, stage 3a Status: Chronic Assessment and Plan: baseline creatinine running around 1.3 - 1.4mg/dl presumably due to hypertension, vascular disease, BPH, and age-related change (3) Bilateral hydronephrosis: Code(s): N13.30 - Unspecified hydronephrosis Status: Acute Assessment and Plan: as noted by outpatient renal ultrasound s/p rodriguez catheter placement good urine output noted no signifincat improvement in renal function to date Urology following s/p cysto and bilateral ureteral stent placement (on 06/07/23) voiding trial today (rodriguez removed earlier this AM) continue current therapy (4) TIA (transient ischemic attack): Code(s): G45.9 - Transient cerebral ischemic attack, unspecified Status: Acute Assessment and Plan: suspected based on events on 06/[address] of head negative MRI/MRA of brain noted Carotid dopplers reviewd Neurology following (5) Chronic anemia: Code(s): D64.9 - Anemia, unspecified Status: Chronic Assessment and Plan: possibly related to TABATHA/CKD follow trend of H/H (6) Hypertension: Code(s): I10 - Essential (primary) hypertension Status: Chronic Assessment and Plan: reasonable control at this time follow trend of hemodynamics Not opposed to discharge from renal/kidney perspective if otherwise medically stable -- will need follow-up with myself (already scheduled) and urology on discharge. Will continue to follow. Subjective Date/time seen: 06/10/23 10:02 Interval history: Follow-up for acute kidney injury/acute renal failure. Rodriguez catheter removed earlier this AM for voiding trial but has yet to void today; no other acute issues/events overnight or earlier this AM; no apparent distress noted at the time of my visit; no other acute complaints to report. Exam Narrative: General: elderly but WD/WN male in NAD Heart: normal S1 and S2; no rub Lungs: clear to auscultation Abdomen: soft, nontender, nondistended, positive bowel sounds Extremities: no cyanosis or clubbing; no edema Skin: warm and dry Objective Data Vital Signs Vital Signs: Vital Signs Temp Pulse Resp BP Pulse Ox O2 Del Method 06/10/23 08:00 Room Air 06/10/23 06:00 97.8 F 80 14 122/53 L 98 06/09/23 22:00 98.0 F 93 14 106/58 L 99 06/09/23 15:30 98 Room Air 06/09/23 14:00 98 F 94 16 134/57 L 98 Intake/Output Intake/Output: Intake & Output 06/07/23 06/08/23 06/09/23 06/10/23 23:59 23:59 23:59 23:59 Intake Total 990 1426 1570 0 Output Total 1850 1250 1750 1150 Balance -860 176 -180 -1150 Meds/Results Medications: Active Medications Generic Name Dose Route Start Last Admin Trade Name Freq PRN Reason Stop Dose Admin Acetaminophen 650 mg 06/03/23 15:39 Acetaminophen 325 Mg Tablet PO Q6H PRN Mild Pain (1-3) or Fever Amlodipine Besylate 5 mg 06/04/23 09:00 06/10/23 08:38 Amlodipine Besylate 5 Mg Tablet PO 5 mg DAILY CHASIDY Administration Dextrose 12.5 gm 06/03/23 15:39 Dextrose 50% 25 Gm/50 Ml Syringe IV PUSH PRN PRN Hypoglycemia Protocol Dutasteride 0.5 mg 06/04/23 09:00 06/10/23 08:38 Dutasteride 0.5 Mg Capsule PO 0.5 mg QAM CHASIDY Administration Fenofibrate 145 mg 06/04/23
--- NOTE | 2023-06-10 10:02 | P.PNNP_ITS ---
Progress Note: A&P Assessment and Plan (1) TABATHA (acute kidney injury): Code(s): N17.9 - Acute kidney failure, unspecified Status: Acute Assessment and Plan: * noted by outpatient labs done in April 2023 * repeat labs on admission similar with creatinine of 5.0mg/dl * presumably secondary to obstructive uropathy/urinary retention based on outpatient renal ultrasound * s/p rodriguez catheter placement * only mild improvement in renal function noted * follow repeat labs and UOP * possible new baseline creatinine?? (2) Stage 3a chronic kidney disease: Code(s): N18.31 - Chronic kidney disease, stage 3a Status: Chronic Assessment and Plan: * baseline creatinine running around 1.3 - 1.4mg/dl * presumably due to hypertension, vascular disease, BPH, and age-related change (3) Bilateral hydronephrosis: Code(s): N13.30 - Unspecified hydronephrosis Status: Acute Assessment and Plan: * as noted by outpatient renal ultrasound * s/p rodriguez catheter placement * good urine output noted * no signifincat improvement in renal function to date * Urology following * s/p cysto and bilateral ureteral stent placement (on 06/07/23) * voiding trial today (rodriguez removed earlier this AM) * continue current therapy (4) TIA (transient ischemic attack): Code(s): G45.9 - Transient cerebral ischemic attack, unspecified Status: Acute Assessment and Plan: * suspected based on events on 06/05 afternoon * CT of head negative * MRI/MRA of brain noted * Carotid dopplers reviewd * Neurology following (5) Chronic anemia: Code(s): D64.9 - Anemia, unspecified Status: Chronic Assessment and Plan: * possibly related to TABATHA/CKD * follow trend of H/H (6) Hypertension: Code(s): I10 - Essential (primary) hypertension Status: Chronic Assessment and Plan: * reasonable control at this time * follow trend of hemodynamics Not opposed to discharge from renal/kidney perspective if otherwise medically stable -- will need follow-up with myself (already scheduled) and urology on discharge. Will continue to follow. Subjective Date/time seen: 06/10/23 10:02 Interval history: Follow-up for acute kidney injury/acute renal failure. Rodriguez catheter removed earlier this AM for voiding trial but has yet to void today; no other acute issues/events overnight or earlier this AM; no apparent distress noted at the time of my visit; no other acute complaints to report. Exam Narrative: General: elderly but WD/WN male in NAD Heart: normal S1 and S2; no rub Lungs: clear to auscultation Abdomen: soft, nontender, nondistended, positive bowel sounds Extremities: no cyanosis or clubbing; no edema Skin: warm and dry Objective Data Vital Signs Vital Signs: Vital Signs Temp Pulse Resp BP Pulse Ox O2 Del Method 06/10/23 08:00 Room Air 06/10/23 06:00 97.8 F 80 14 122/53 L 98 06/09/23 22:00 98.0 F 93 14 106/58 L 99 06/09/23 15:30 98 Room Air 06/09/23 14:00 98 F 94 16 134/57 L 98 Intake/Output Intake/Output: Intake & Output 06/07/23 06/08/23 06/09/23 06/10/23 23:59 23:59 23:59 23:59 Intake Total 990 1426 1570 0 Output Total 1850 1250 1750 1150
--- NOTE | 2023-06-10 11:45 | PM.IMPN ---
Progress Note: A&P Assessment and Plan (1) Acute on chronic kidney failure: Code(s): N17.9 - Acute kidney failure, unspecified; N18.9 - Chronic kidney disease, unspecified Status: Acute Assessment and Plan: Renal ultrasound from 06/01/2023 showed prominent bilateral hydronephrosis bilateral renal atrophy. Repeat sounds showed improvement with now mild to moderate bilateral hydronephrosis. Creatinine 5.1 on admission. Nephrology consulted Urology consulted Status post cystoscopy with bilateral ureter stent placement on 06/06/23 Creatinine continues to improve slowly Repeat ultrasound with resolution of hydronephrosis 06/08/2023 Creatinine back in 2022 was 1.3 Irbesartan on hold (2) Urinary retention: Code(s): R33.9 - Retention of urine, unspecified Status: Acute Assessment and Plan: continue Flomax and Avodart (3) TIA (transient ischemic attack): Code(s): G45.9 - Transient cerebral ischemic attack, unspecified Status: Acute Assessment and Plan: No neuro deficits again today EEG was negative for any seizure activity, essentially normal Monitor closely. Brain MRI with extensive nonspecific cerebral white matter disease which likely represent chronic small vessel ischemic disease MRA brain normal Carotid Doppler negative (4) Hypertension: Code(s): I10 - Essential (primary) hypertension Status: Chronic Assessment and Plan: Stable on current medications: Will continue current treatment. Monitor closely. (5) Hypothyroidism: Code(s): E03.9 - Hypothyroidism, unspecified Status: Chronic Assessment and Plan: Stable on current medications: Will continue current treatment. Monitor closely. (6) Dyslipidemia: Code(s): E78.5 - Hyperlipidemia, unspecified Status: Chronic Assessment and Plan: Stable on current medications: Will continue current treatment. Monitor closely. (7) Chronic anemia: Code(s): D64.9 - Anemia, unspecified Status: Chronic Assessment and Plan: Stable on current medications: Will continue current treatment. Monitor closely. Plan Left thyroid nodule TIRADs 3 and will follow-up ultrasound recommended Subjective Date/time seen: 06/10/23 11:45 Interval history: No overnight events. Ho has been removed earlier today. He states he has not urinated since then. Review of Systems Review of Systems: All systems reviewed & are unremarkable except as noted in HPI and below Exam Narrative: General: In no acute distress, well nourished Head: atraumatic, no encephalopathy Eyes: EOMI, PERRLA, sclera clear ENT: moist mucous membranes, nasal passages clear Neck: supple, no JVD, no adenopathy, trachea midline Cardiac: Normal S1 and S2. RRR, No murmur, gallops or friction rubs, peripheral pulses intact. Respiratory: Lungs clear to auscultation, no adventitious lung sounds, currently on room air Gastrointestinal: soft, non-distended, non-tender, normoactive bowel sounds. : Ho draining clear yellow urine Extremities: moves all extremities well, no edema Skin: clean, dry, intact. No wounds or lesions. Neuro: Alert and oriented x4, cranial nerves intact, no neuro deficits. Psych: normal mood, normal affect, interactive Objective Data Vital Signs Vital Signs: Vital Signs - 24 hr 06/09/23 14:00 06/09/23 15:30 06/09/23 22:00 Temperature 98 F 98.0 F Pulse Rate 94 93 Respiratory Rate 16 14 Blood Pressure 134/57 L 106/58 L Pulse Oximetry 98 98 99 Oxygen Delivery Room Air 06/10/23 06:00 06/10/23 08:00 Temperature 97.8 F Pulse Rate 80 Respiratory Rate 14 Blood Pressure 122/53 L Pulse Oximetry 98 Oxygen Delivery Room Air Intake/Output Intake/Output: Intake & Output 06/07/23 06/08/23 06/09/23 06/10/23 23:59 23:59 23:59 23:59 Intake Total 990 1426 1570 0 Output Total 1850 1250 1750 1150 Balance -860 176 -180 -1150 Meds/Re
--- NOTE | 2023-06-10 13:11 | PCNWS ---
Weekly nutritional screen. Patient is tolerating current regular diet with adequate intake 50-100%. No weight loss reported. No nutritional needs at this time.
[2023-06-10 13:59] VITALS: BP 122/78; PULSE 88; RESP 16; TEMP 36.6; O2SAT 100
--- NOTE | 2023-06-10 17:31 | PC.NURSE ---
Bladder scanned patient at 17:00, scan showed 588 mL of urine. Ho catheter has been removed since 629 on 06/10/2023. Pt. encouraged to void and still unable to void. Ho catheter replaced at 17:30. 900 mL of clear yellow urine drained out. Pt. tolerated procedure well with no complaints. Plan of care continues.
[2023-06-10 22:00] VITALS: BP 134/69; PULSE 86; RESP 18; TEMP 37; O2SAT 99
--- NOTE | 2023-06-11 05:50 | WPDUROPN2 ---
Progress Note: A&P Assessment and Plan (1) BPH (benign prostatic hyperplasia): Code(s): N40.0 - Benign prostatic hyperplasia without lower urinary tract symptoms Status: Acute (2) Bilateral hydronephrosis: Code(s): N13.30 - Unspecified hydronephrosis Status: Acute (3) Urinary retention: Code(s): R33.9 - Retention of urine, unspecified Status: Acute Assessment and Plan: Failed voiding trial - catheter replaced Will plan to remove catheter at time of outpatient stent removal Home anytime Subjective Subjective Date/Time Seen: 06/11/23 05:50 Interval history: Failed voiding trial Review of Systems Review of Systems: All systems reviewed & are unremarkable except as noted in HPI and below Exam Const: General: no acute distress Resp: Effort & Inspection: normal respiratory effort GI: Inspection: non-distended GI Palp: No abdominal tenderness and No Guarding due to palpation present (GI) Auscultation: normal bowel sounds Urinary Catheter: Urinary Catheter: patent and draining and urine clear Objective Data Vital Signs Vital Signs: Vital Signs - 24 hr 06/10/23 06:00 06/10/23 08:00 06/10/23 13:59 Temperature 97.8 F 97.8 F Pulse Rate 80 88 Respiratory Rate 14 16 Blood Pressure 122/53 L 122/78 Pulse Oximetry 98 100 Oxygen Delivery Room Air 06/10/23 22:00 Temperature 98.6 F Pulse Rate 86 Respiratory Rate 18 Blood Pressure 134/69 Pulse Oximetry 99 Oxygen Delivery Intake/Output Intake/Output: Intake & Output 06/08/23 06/09/23 06/10/23 06/11/23 23:59 23:59 23:59 23:59 Intake Total 1426 1570 1342 Output Total 1250 1750 1850 Balance 774 -290 -622 Meds/Results Medications: Active Medications Generic Name Dose Route Start Last Admin Trade Name Freq PRN Reason Stop Dose Admin Acetaminophen 650 mg 06/03/23 15:39 Acetaminophen 325 Mg Tablet PO Q6H PRN Mild Pain (1-3) or Fever Amlodipine Besylate 5 mg 06/04/23 09:00 06/10/23 08:38 Amlodipine Besylate 5 Mg Tablet PO 5 mg DAILY CHASIDY Administration Dextrose 12.5 gm 06/03/23 15:39 Dextrose 50% 25 Gm/50 Ml Syringe IV PUSH PRN PRN Hypoglycemia Protocol Dutasteride 0.5 mg 06/04/23 09:00 06/10/23 08:38 Dutasteride 0.5 Mg Capsule PO 0.5 mg QAM CHASIDY Administration Fenofibrate 145 mg 06/04/23 09:00 06/10/23 08:38 Fenofibrate Nanocrystallized 145 Mg Tablet PO 145 mg DAILY CHASIDY Administration Glucagon 1 mg 06/03/23 15:39 Glucagon For Inj 1 Mg Vial IM PRN PRN Hypoglycemia Protocol Glucose 15 gm 06/03/23 15:39 Glucose Oral Gel 15 Gm Of Glucse In 37.5 Gm Tube PO PRN PRN Hypoglycemia Protocol Dextrose 1,000 mls @ 100 mls/hr 06/03/23 15:39 Dextrose 5% 1,000 Ml IVPB PRN PRN Hypoglycemia Protocol Levetiracetam 500 mg 06/05/23 15:55 06/10/23 21:08 Levetiracetam 500 Mg Tablet PO 500 mg Q12HR CHASIDY Administration Levothyroxine Sodium 25 mcg 06/04/23 06:30 06/10/23 06:35 Levothyroxine Sodium 25 Mcg Tablet PO 25 mcg DAILY@0630 CHASIDY Administration Multivitamins/Minerals 1 tab 06/04/23 09:00 06/10/23 08:38 Multivitamins /C Lutein (Centrum Silver) Tablet *Bkc PO 1 tab DAILY CHASIDY Administration Tamsulosin HCl 0.4 mg 06/04/23 09:00 06/10/23 08:38 Tamsulosin Hcl 0.4 Mg Capsule PO 0.4 mg QAM CHASIDY Administration Vitamin D 2,000 units 06/04/23 09:00 06/10/23 08:38 Cholecalciferol 1,000 Units Tablet PO 2,000 units DAILY CHASIDY Administration Radiology Results: ITS Impressions Head CT 06/05/23 16:32 IMPRESSION: 1. Unchanged extensive nonspecific cerebral white matter disease, which likely represents chronic small vessel ischemic disease. Brain MRI 06/06/23 11:01 IMPRESSION: 1. Extensive nonspecific cerebral white matter disease, which likely represents chronic small vessel ischemic disease. Brain MRA
[2023-06-11 06:00] VITALS: BP 124/78; PULSE 77; RESP 18; TEMP 36.4; O2SAT 98
[2023-06-11] MEDS: LEVOTHYROXINE SODIUM 25 MCG TABLET PO (06:10)
[2023-06-11 07:01] LABS: Basophils Absolute Auto 0.1 K/mm3 (0.0-0.1); Basophils Percent Auto 0.7 % (0.2-1.2); Eosinophils Absolute Auto 0.4 K/mm3 (0-0.3); Hematocrit 30.1 % (42.0-52.0); Hemoglobin 9.4 g/dL (14.0-18.0); Immature Granulocyte Absolute 0.09 K/mm3 (0.00-0.031); Lymphocytes Absolute Auto 1.67 K/mm3 (0.9-3.2); Lymphocytes Percent Auto 19.2 % (18.3-44.2); Mean Corpuscular HGB Conc 31.2 g/dl (32-36); Mean Corpuscular Hemoglobin 31.1 pg (26-34); Mean Corpuscular Volume 99.7 fl (80-100); Mean Platelet Volume 11.5 fl (7.4-10.4); Monocytes Percent Auto 10.9 % (2.6-8.5); Neutrophils Absolute Auto 5.5 K/mm3 (1.3-6.7); Neutrophils Percent Auto 63.2 % (45.5-73.1); Platelet Count Result 277 k/mm3 (150-375); Red Blood Count 3.02 M/mm3 (4.6-6.20); Red Cell Distribution Width 15.2 % (11.5-14.5); White Blood Count 8.7 K/mm3 (4.5-10.0)
[2023-06-11 07:09] LABS: Alanine Aminotransferase 13 U/L (6-50); Albumin Level 3.4 g/dL (3.5-5.1); Alkaline Phosphatase 40 U/L (38-126); Anion Gap 8 mmol/L (4-12); Aspartate Amino Transferase 27 U/L (17-59); Bilirubin,Total 0.5 mg/dL (0.2-1.3); Blood Urea Nitrogen 66 mg/dL (9-20); Calcium 8.9 mg/dL (8.4-10.2); Carbon Dioxide 19 mmol/L (22-30); Chloride 110 mmol/L (98-107); Estimated CRCL calculation 11 ml/min; Estimated Glomerular Filt Rate 14; Glucose 86 mg/dL (65-110); Magnesium 2.2 mg/dL (1.6-2.3); Potassium 4.9 mmol/L (3.4-5.0); Sodium 137 mmol/L (137-145)
--- NOTE | 2023-06-11 08:30 | PM.DS ---
DS: Admitting Diagnosis Discharge Date 06/11/23 Admitting Diagnosis Acute on chronic kidney failure Urinary retention Chronic anemia Hypertension Hypothyroidism Dyslipidemia DS: Discharge Diagnosis Discharge Diagnosis (1) Acute on chronic kidney failure: Code(s): N17.9 - Acute kidney failure, unspecified; N18.9 - Chronic kidney disease, unspecified Status: Acute (2) Urinary retention: Code(s): R33.9 - Retention of urine, unspecified Status: Acute (3) TIA (transient ischemic attack): Code(s): G45.9 - Transient cerebral ischemic attack, unspecified Status: Acute (4) Hypertension: Code(s): I10 - Essential (primary) hypertension Status: Chronic (5) Hypothyroidism: Code(s): E03.9 - Hypothyroidism, unspecified Status: Chronic (6) Dyslipidemia: Code(s): E78.5 - Hyperlipidemia, unspecified Status: Chronic (7) Chronic anemia: Code(s): D64.9 - Anemia, unspecified Status: Chronic DS: Summary Hospital Course Reason for hospitalization: Acute on chronic kidney failure Urinary retention Chronic anemia Hypertension Hypothyroidism Dyslipidemia Hospital Course: Interval history: 06/04/23: This is an 80-year-old male presented to hospital on 06/02 4 with abnormal labs.? Patient had labs drawn about 1 month ago which showed a creatinine of 5.10 which is up from his baseline of 1.3-1.4.? He was referred to Nephrology at that time.? He had a renal ultrasound this past Saturday showing prominent bilateral hydronephrosis and bilateral renal atrophy with urinary bladder trabeculation.? He was referred back to the hospital further workup.? Workup in the hospital included a repeat renal ultrasound which showed slight improvement, mild to moderate bilateral hydronephrosis, there was note of an unchanged 7 mm cyst at the periphery of the right kidney.? Initial labs shown abnormal white blood cell count of 6.9, hemoglobin 12.0, sodium 147, BUN 69 creatinine 5.10, EGFR 11, TSH was 11.5, free T4 was 0.85.? A UA was also performed which showed 2+ protein, 21-50 urine wbc's otherwise normal.? On examination today patient is alert oriented x3, lying in.? He denies any fever, chills nausea, vomiting, diarrhea, abdominal pain, chest pain, shortness a breath, headache, lightheadedness, dizziness. Nephrology consulted.? 06/05/23: Labs today show hemoglobin 9.9, creatinine 4.6, EGFR of 12.? Urology seen patient today and plans to take patient for a cystoscopy tomorrow for bilateral ureteral stents.? He will be NPO after midnight tonight.? Urology and Nephrology board.? Upon assessment today around 1445 p.m. I found the patient slumped to the left in his chair, he was drooling, facial drooping on the left, with his eyes deviated to the right, slurred speech, and inability to move his left arm and left leg.? For few minutes he became minimally responsive as we got him back to the bed.? Code stroke was called.? NIH score was greater than 25.? Dr. Peralta was called to the bedside for possible intubation.? He was taken for head CT which was negative the for any acute stroke however shown extensive nonspecific cerebral white matter disease.? After the CT scan patient was more responsive and moving all 4 extremities.? He did not have any more facial droop or slurred speech.? He was placed on continuous telemetry.? EKG showed normal sinus rhythm. ABG shown HCO3 20.0 otherwise normal. Troponin <0.012. MRA of the brain without contrast ordered for today, we will get an EEG to rule out seizure activity, and get an MRI of the brain without contrast tomorrow. Case was discussed with Dr. Peralta (ecotherapist) and with Dr. Tellez (neurology).? Will notify Urology of this incident. 06/06/23: Labs today shown hemoglobin of 9.8, creatinine is 4.0 this morning, EGFR 14, phos is 4.8, troponins were negative x2.? Brain MRI showing extensive nonspecific cerebral white matter disease likely representing chronic small vessel
[2023-06-11] MEDS: TAMSULOSIN HCL 0.4 MG CAPSULE PO (09:56)
[2023-06-11] MEDS: CHOLECALCIFEROL 1,000 UNITS TABLET 2000 UNITS PO (09:56)
[2023-06-11] MEDS: levETIRAcetam 500 MG TABLET PO (09:57)
[2023-06-11] MEDS: DUTASTERIDE 0.5 MG CAPSULE PO (09:57)
[2023-06-11] MEDS: FENOFIBRATE NANOCRYSTALLIZED 145 MG TABLET PO (09:57)
[2023-06-11] MEDS: MULTIVITAMINS /C LUTEIN (CENTRUM SILVER) TABLET *BKC 1 TAB PO (09:57)
[2023-06-11] MEDS: amLODIPine BESYLATE 5 MG TABLET PO (09:57)
== END 2023-06-11 11:50 | disposition home health service (06) | DRG 660 ==
LOC: ANHED 09:50 → ANH3MEDSUR 12:24
PROVIDERS: Internal Medicine; Internal Medicine Nephrology; Physician Assistant; Student in an Organized Health Care Education/Training Program; Urology; Admitting Provider Internal Medicine; Emergency Provider Nurse Practitioner Family; PCP Nurse Practitioner; Visit Provider Nurse Practitioner Acute Care
PROC: 0T788DZ Dilation of Bilateral Ureters with Intraluminal Device, Via Natural or Artificial Opening Endoscopic (ICD-10-PCS; CPT 52352; principal; 2023-06-06 14:15)
DX: N17.9 Acute kidney failure, unspecified (principal); G45.9 Transient cerebral ischemic attack, unspecified; R56.9 Unspecified convulsions; I12.9 Hypertensive chronic kidney disease with stage 1 through stage 4 chronic kidney disease, or unspecified chronic kidney disease; N18.31 Chronic kidney disease, stage 3a; N40.1 Benign prostatic hyperplasia with lower urinary tract symptoms; N13.2 Hydronephrosis with renal and ureteral calculous obstruction; R33.8 Other retention of urine; N32.0 Bladder-neck obstruction; E03.9 Hypothyroidism, unspecified; E78.5 Hyperlipidemia, unspecified; D63.1 Anemia in chronic kidney disease; N28.1 Cyst of kidney, acquired; D64.9 Anemia, unspecified; R33.9 Retention of urine, unspecified; Z85.46 Personal history of malignant neoplasm of prostate; Z85.828 Personal history of other malignant neoplasm of skin; Z90.49 Acquired absence of other specified parts of digestive tract
CPT/HCPCS: 36415; 36600; 70450; 70544; 70551; 74420; 76775; 80048; 80053; 80069; 81001; 82365; 82803; 82805; 82948; 83036; 83721; 83735; 84100; 84484; 85025; 88300; 93005; 93306; 93880; 95816; 96375; 97110; 97116; 97161; 97165; 97530; 97535; 99285; A9270; C1758; C1769; C2617; J0690; J2405; J2704; J3010; J7120; Q9966

== ENCOUNTER 2023-06-12 14:27 | Observation (INO) | payer MEDICARE, SELFPAY ==
[2023-06-12] VITALS (15 sets, daily range): BP systolic 75–144; BP diastolic 47–72; PULSE 73–95; RESP 13–20; TEMP 36.6–36.7; O2SAT 96–100; BMI 23.1
--- NOTE | ~2023-06-12 | MR_ITS ---
EXAMINATION: MR brain/brain stem wo/w con DATE: 06/13/2023 08:57 INDICATION: Stroke. Syncope. TECHNIQUE: Magnetic resonance imaging (MRI) of the brain and brainstem was performed without and with 14 mL MultiHance intravenous contrast. COMPARISON: Brain MRI 06/06/2023, head CT 06/12/2023 FINDINGS: There is an acute infarct involving the posterior limb right internal capsule. There are sc attered areas of nonspecific increased T2-weighted signal intensity in the cerebral white matter. The re is no intracranial hemorrhage. There is a 13 x 9 mm enhancing extra-axial mass overlying the right sylvian fissure, consistent with a meningioma. The ventricles are normal in size. The orbits are nor mal. The paranasal sinuses are clear. The mastoid air cells are normal. IMPRESSION: 1. Acute infarct involving the posterior limb right internal capsule. 2. 13 mm enhancing extra-axial mass overlying the right sylvian fissure, consistent with a meningioma . 3. Extensive nonspecific cerebral white matter disease, which likely represents chronic small vessel ischemic disease. Reviewed, dictated and finalized at location E. IMPRESSION: 1. Acute infarct involving the posterior limb right internal capsule. 2. 13 mm enhancing extra-axial mass overlying the right sylvian fissure, consis tent with a meningioma. 3. Extensive nonspecific cerebral white matter disease, which likely represents chronic small vessel ischemic disease.
--- NOTE | ~2023-06-12 | MR_ITS ---
EXAMINATION: MRA brain wo con DATE: 06/13/2023 16:43 INDICATION: Acute stroke. TECHNIQUE: Magnetic resonance angiography (MRA) of the brain was performed without intravenous contra st with T1-weighted SPGR by the 3D [id number] technique. Maximum intensity projection 3D-reconstr uctions were obtained. COMPARISON: Brain MRI 06/13/2023 FINDINGS: The vertebral arteries are codominant. There is no significant stenosis of basilar artery or the post erior cerebral arteries. The posterior communicating arteries are normal. There is no significant jethro nosis of the intracranial internal carotid arteries or anterior or middle cerebral arteries. Anterior communicating artery is normal. There is no aneurysm. There is a 1.3 x 1.0 cm extra-axial mass overl manuel right sylvian fissure, consistent with a meningioma. IMPRESSION: 1. No aneurysm or significant arterial occlusive disease. 2. 1.3 cm extra-axial mass overlying right sylvian fissure, consistent with a meningioma. Reviewed, dictated and finalized at location E. IMPRESSION: 1. No aneurysm or significant arterial occlusive disease. 2. 1.3 cm extra-axial mass overlying right sylvian fissure, consistent with a m eningioma.
--- NOTE | ~2023-06-12 | US_ITS ---
EXAMINATION: US carotid duplex BI DATE: 06/13/2023 16:40 INDICATION: Acute stroke with speech-language deficit and subjective visual disturbance TECHNIQUE: Grayscale, color Doppler, and pulsed Doppler images of the cervical carotid arteries were obtained. The degree of vessel stenosis is placed in one of the following categories: normal, <50%, 5 0-69%, >=70% but less than near-occlusion, near-occlusion, or total occlusion. Note that percent sten osis relative to normal distal artery lumen diameter is indirectly measured from velocity measurement s as described by Edi, et al. Radiology 2003; 229:340-346. COMPARISON: None. FINDINGS: RIGHT: The right common carotid artery (CCA) peak systolic velocity (PSV) is 73 cm/s. The right internal car otid artery (ICA) PSV is 51 cm/s. The right ICA end-diastolic velocity (EDV) is 15 cm/s. The right IC A/CCA PSV ratio is 0.7. Grayscale and color Doppler images yield an estimate of <50% diameter reducti on from plaque in the ICA. The external carotid artery (ECA) PSV is 64 cm/s. There is antegrade flow in the right vertebral artery. LEFT: The left CCA PSV is 76 cm/s. The left ICA PSV is 55 cm/s. The left ICA EDV is 15 cm/s. The left ICA/C CA PSV ratio is 0.7. Grayscale and color Doppler images yield an estimate of <50% diameter reduction from plaque in the ICA. The ECA PSV is 68 cm/s. There is antegrade flow in the left vertebral artery. IMPRESSION: 1. <50% stenosis in the right internal carotid artery. 2. <50% stenosis in the left internal carotid artery. Reviewed, dictated and finalized at location A.
--- NOTE | ~2023-06-12 | CT_ITS ---
EXAMINATION: CT brain wo con DATE: 06/12/2023 14:57 INDICATION: Left-sided weakness TECHNIQUE: Computed tomography (CT) of the head was performed without intravenous contrast. Sagittal and coronal reconstructions were performed. The mA was adjusted according to patient size. Iterative reconstruction technique was employed. The dose-length product was 605.33 mGy-cm. COMPARISON: head CT dated 06/05/2023 FINDINGS: Small focus of decreased attenuation at the right basal ganglia which is not appreciated on the prior studies suspicious for recent lacunar infarct. No acute intracranial hemorrhage or abnormal extra ax ial fluid collection. There is moderate scattered white matter hypoattenuation consistent with chroni c small vessel ischemic disease. Ventricles are normal and symmetric. Unchanged subtle 12 x 10 mm ext ra-axial mass at the anterior aspect of the right sylvian fissure along the greater wing of the sphen oid. The orbits, paranasal sinuses and mastoid air cells are normal. IMPRESSION: 1. Small focus of decreased attenuation at the right basal ganglia which is new since the prior study suspicious for recent infarct. No evident intracranial hemorrhage. 2. 12 x 10 mm extra-axial mass at the anterior margin of the right sylvian fissure along the greater wing of the sphenoid most likely representing a meningioma. Recommend further evaluation with pre and postcontrast MRI. Reviewed, dictated and finalized at location A. IMPRESSION: 1. Small focus of decreased attenuation at the right basal ganglia which is new since the prior study suspicious for recent infarct. No evident intracranial h emorrhage. 2. 12 x 10 mm extra-axial mass at the anterior margin of the right sylvian fiss ure along the greater wing of the sphenoid most likely representing a meningiom a. Recommend further evaluation with pre and postcontrast MRI.
--- NOTE | ~2023-06-12 | XR_ITS ---
EXAMINATION: XR chest 1V portable DATE: 06/12/2023 15:14 INDICATION: Left hemiparesis. TECHNIQUE: A single frontal view of the chest was obtained. COMPARISON: None. FINDINGS: There is mild atelectasis in left lower lung zone. A calcified left lung nodule is consiste nt with old granulomatous. No pleural effusion or pneumothorax. The heart size is normal. IMPRESSION: 1. Mild atelectasis in left lower lung zone. Reviewed, dictated and finalized at location E.
--- NOTE | 2023-06-12 14:33 | ECG_ITS ---
SEE SCANNED COPY FOR CONFIRMED REPORT MTDD
[2023-06-12 14:40] LABS: Glucose Point of Care 152 mg/dl (65-105)
[2023-06-12] MEDS: SODIUM CHLORIDE 0.9% IV 1,000 ML 999 ML (14:49)
[2023-06-12 14:51] LABS: Basophils Absolute Auto 0.1 K/mm3 (0.0-0.1); Basophils Percent Auto 0.6 % (0.2-1.2); Eosinophils Absolute Auto 0.2 K/mm3 (0-0.3); Eosinophils Percent Auto 2.4 % (0-4.4); Hematocrit 31.6 % (42.0-52.0); Immature Granulocyte Percent A 1.3 % (0-0.5); Lymphocytes Absolute Auto 1.63 K/mm3 (0.9-3.2); Lymphocytes Percent Auto 20.5 % (18.3-44.2); Mean Corpuscular HGB Conc 31.6 g/dl (32-36); Mean Corpuscular Hemoglobin 30.8 pg (26-34); Mean Corpuscular Volume 97.2 fl (80-100); Monocytes Absolute Auto 0.8 K/mm3 (0.1-0.6); Monocytes Percent Auto 10.3 % (2.6-8.5); Neutrophils Absolute Auto 5.2 K/mm3 (1.3-6.7); Neutrophils Percent Auto 64.9 % (45.5-73.1); Platelet Count Result 319 k/mm3 (150-375); Red Blood Count 3.25 M/mm3 (4.6-6.20); Red Cell Distribution Width 15.3 % (11.5-14.5)
[2023-06-12 15:04] LABS: Alanine Aminotransferase 18 U/L (6-50); Albumin Level 3.8 g/dL (3.5-5.1); Alkaline Phosphatase 43 U/L (38-126); Anion Gap 10 mmol/L (4-12); Aspartate Amino Transferase 37 U/L (17-59); Bilirubin,Total 0.5 mg/dL (0.2-1.3); Blood Urea Nitrogen 69 mg/dL (9-20); Calcium 9.3 mg/dL (8.4-10.2); Carbon Dioxide 21 mmol/L (22-30); Chloride 106 mmol/L (98-107); Estimated Glomerular Filt Rate 11; Glucose 146 mg/dL (65-110); Potassium 5.2 mmol/L (3.4-5.0); Sodium 137 mmol/L (137-145)
[2023-06-12 15:08] LABS: INR 1.1; Prothrombin Time 14.4 Seconds (11.1-14.7)
[2023-06-12 15:09] LABS: Partial Thromboplastin Time 34.1 Seconds (22.3-36.8)
--- NOTE | 2023-06-12 15:11 | ED.SYNCOPE ---
HPI - Syncope General Chief Complaint: Syncope Stated Complaint: unresponsive Time Seen by Provider: 06/12/23 14:35 History of Present Illness HPI narrative: Patient is an 88-year-old male who presents ER after syncopal episode. He was doing OT performing a practice shower when he lost consciousness. Upon arrival here patient is looking to the right side and cannot move the left side of his body. His blood pressure is in the 70 systolic. He cannot provide any history. Family arrived and reports that he has been having some TIAs over last couple days for can not move his left side. Worse when he has positional changes. Patient was just discharged from the hospital yesterday after being evaluated for his chronic kidney disease. Related Data Home Medications Medication Instructions Recorded Confirmed cholecalciferol (vitamin D3) 50 50 mcg PO DAILY 02/23/21 06/12/23 mcg (2,000 unit) capsule geriatric multivitamin-min 1 tablet PO DAILY 05/27/23 06/12/23 fenofibrate nanocrystallized 145 145 mg PO DAILY 06/03/23 06/12/23 mg tablet irbesartan 300 mg tablet 300 mg PO DAILY 06/03/23 06/12/23 Allergies Allergy/AdvReac Type Severity Reaction Status Date / Time Penicillins Allergy Unknown Unknown Verified 06/03/23 13:41 Sulfa (Sulfonamide Allergy Rash Verified 06/03/23 13:41 Antibiotics) Review of Systems Review of Systems: ROS unobtainable: Yes unobtainable due to mental status PMFSH Past Medical History Medical History Chronic anemia Chronic kidney disease Dyslipidemia Hypertension Hypothyroidism Prostate cancer Skin cancer Surgical History Surgical History History of bilateral inguinal hernia repair History of cholecystectomy History of colonoscopy Family History Family History Father Patient's father is Family history of alcoholism Hypertension Mother Patient's mother is Son Family history of diabetes mellitus in first degree relative Daughter Family history of diabetes mellitus in first degree relative Father No problems noted. Social History Social History Social History: Surrogate medical decision maker: Delicia or Jesus Manuel Katya, children. Code status: Full code. Smoking status: Never smoker Second hand tobacco smoke exposure: No Alcohol intake: never Alcohol use details: Social alcohol use. Substance use: never Substance use type: does not use Do You Feel Safe in your Home?: Yes Lack of Transportation: No Lack of Food: Never True Current Housing: I Have Housing Concerned About Future Housing: No Difficulty Paying Gas/Electric Bills: No Difficulty Paying for Meds: No Currently Unemployed: No Education: Bachelor's Degree Difficulty w/ Childcare or Family Care: No Spiritual care concerns: No Exam Narrative: GENERAL: Ill-appearing, well-nourished, and in distress. HEAD: Normocephalic, atraumatic. EYES: Eyes deviated to the right with pinpoint pupils. ENT: Mucous membranes moist. CHEST: Clear to auscultation. No respiratory distress. HEART: Regular rate and rhythm. Normal peripheral pulses. ABDOMEN: Soft, nontender, nondistended. EXTREMITIES: Normal range of motion. No edema. SKIN: Warm, dry, no rash. NEURO: Awake alert but poorly responsive. Original NIH Stroke Scale is 14 with significant weakness of left side. Unable to communicate. Course Course Emergency Course: Rapid improvement in symptoms after receiving IV fluids from being leg backwards. Repeat NIH Stroke Scale of 0. Neurology consulted as there is any abnormality on the CT scan. I did speak with the family and they report patient is a DNR and they would not do any aggressive intervention incl
[2023-06-12 15:15] LABS: Troponin I 0.012 ng/mL (0.000-0.034)
--- NOTE | 2023-06-12 18:03 | ADMGEN ---
This patient, Matthew Aldana, was admitted to 2 Medical Room 256-. Patient/family oriented to hospital policies and general routines including ID bracelet, bed and alarms, visiting hours, pain management, procedures, bathroom and other care routines, personal items, smoking policy, room service/diet, and visiting hours. Information on how to activate the Rapid Response Team has been discussed. Patient/Family are encouraged to report perceived risks to care and to ask questions if they do not understand what they are told or what they should do.
--- NOTE | 2023-06-12 20:06 | PM.IMHP ---
H&P: HPI History of Present Illness Date/Time: 06/12/23 20:30 Chief Complaint: Syncope. Narrative: This is an 88-year-old male with hypertension, dyslipidemia, benign prostatic hyperplasia, prostate cancer, hypothyroidism, and chronic kidney disease who presented to the emergency department for evaluation after a brief syncopal episode while participating in occupational therapy. The patient provides the following history. He is known to myself and the hospitalist service from an admission earlier this month with acute renal failure and urinary retention. He underwent cystoscopy with bilateral ureteral stent placements and despite this and the insertion of a Ho catheter (this remains as he failed a voiding trial) there was not much improvement in his renal function. Also during that stay he had transient left-sided weakness with left gaze deviation and speech change. Brain MRI showed extensive white matter disease but no acute findings and his brain MRA was normal. There were no electrographic seizures or epileptiform discharges were noted on EEG though seizure remained in the differential and he was started on Keppra 500 mg b.i.d. per neurology. He has been doing okay at home since that time. His son and son-in-law have been helping him out at home ( has dementia and is at [facility]). He had occupational therapy today and felt fine when he got up this morning. He does not remember much thereafter. According to documentation he was performing a practice shower with the occupational therapist when he suddenly became unresponsive. On arrival to the ED his blood pressures were in the 70s systolic. He was alert but poorly responsive with right gaze deviation and limited movement on the left side. Stroke Scale was 14 on arrival. His symptoms improved after an IV fluid bolus and being laid in a supine position. In fact a repeat stroke scale was 0 thereafter. ED physician spoke with the patient and his family members regarding possible aggressive intervention which they did decline. ED physician spoke with the on-call neurologist requests admission and MRI. In the ED: Blood pressure on arrival was 75/47 but has improved after receiving a L of normal saline. The remainder of his vital signs have been stable. Labs were significant for a WBC count of 8.0, hemoglobin 10.0, sodium 137, potassium 5.2, BUN 69, creatinine 4.90, carbon dioxide 21. He is being admitted in this setting for further evaluation. At the time my evaluation he is alert and oriented. He does not recall antecedent symptoms prior to this episode today nor does he recall the ambulance ride or being down in the emergency department. At this time he feels fine and denies headache, vertigo, visual changes, focal weakness, paresthesias, chest pain, shortness of breath, nausea, vomiting, etc.. Review of Systems Review of Systems: 12 systems were reviewed and are negative except for as per HPI. [facility] Past Medical History Medical History Chronic anemia Chronic kidney disease Dyslipidemia Hypertension Hypothyroidism Prostate cancer Skin cancer Surgical History Surgical History History of bilateral inguinal hernia repair History of cholecystectomy History of colonoscopy Family History Family History Father Patient's father is Family history of alcoholism Hypertension Mother Patient's mother is Son Family history of diabetes mellitus in first degree relative Daughter Family history of diabetes mellitus in first degree relative Father No problems noted. Social History Social History Social History: Surrogate medical decision maker: Delicia or Jesus Manuel Aldana, children. Code status: Full code. Smoking st
[2023-06-13] VITALS (9 sets, daily range): BP systolic 114–130; BP diastolic 50–60; PULSE 76–87; RESP 16–18; TEMP 36.5–36.8; O2SAT 96–100
--- NOTE | 2023-06-13 | ECHO_ITS ---
Patient Info Name: Matthew Aldana Age: 88 years : 1935 Gender: Male Ht: 69 in Wt: 154 lbs BSA: 1.85 m2 HR: 80 bpm BP: 130 / 58 mmHg Heart Rhythm: Sinus Rhythm Technical Quality: Fair Exam Date: 06/13/2023 2:03 PM Exam Location: Echo Lab Patient Status: Outpatient Admit Date: 06/12/2023 Staff Ordering Physician: Twila Burleson MD Stationary Engineer: Richie Del Real RDCS Attending Provider: Susan Li MD Exam Type: CA echo doppler w bubble study Study Info Complete two-dimensional, color flow and Doppler transthoracic echocardiogram is performed with agitated saline. Contrast/Agitated Saline Contrast/Ag. Saline: Agitated Saline Amount: 14.00 ml IV Access Condition: patent with no signs of infiltration Summary 1. Left ventricular chamber dimension is normal. 2. Left ventricular systolic function is normal, estimated at 55-60%. 3. There is mildly increased left ventricular wall thickness. 4. The left ventricular diastolic function is grade I diastolic dysfunction. 5. Right ventricular systolic function is normal. 6. Intact interatrial septum visualized by color flow and agitated saline imaging. Negative bubble study. 7. There is mild tricuspid valve regurgitation. Left Ventricle Left ventricular chamber dimension is normal. Left ventricular systolic function is normal, estimated at 55-60%. There is mildly increased left ventricular wall thickness. The left ventricular diastolic function is grade I diastolic dysfunction. Right Ventricle Right ventricular chamber dimension is normal. Right ventricular systolic function is normal. Left Atria Left atrial chamber dimension is normal. Right Atria Right atrial chamber dimension is normal. Atrial Septum Intact interatrial septum visualized by color flow and agitated saline imaging. Negative bubble study. Aortic Valve The aortic valve is trileaflet. There is mild aortic valve sclerosis. There is no aortic valve stenosis. There is trace aortic valve regurgitation. Pulmonic Valve The pulmonic valve is not well visualized. Mitral Valve There is trace mitral valve regurgitation. Tricuspid Valve There is mild tricuspid valve regurgitation. Pericardium/Pleural The pericardium appears epicardial fat pad. There is no pericardial effusion. Inferior Vena Cava Normal inferior vena cava with >50% collapse upon inspiration consistent with normal right atrial pressure, 3 mmHg. Aorta The aortic root size at the sinus of Valsalva is not well visualized. Left Ventricular Outflow Tract Name Value Normal LVOT 2D LVOT Diameter 1.9 cm LVOT Doppler LVOT Peak Gradient 2 mmHg LVOT Mean Gradient 1 mmHg LVOT VTI 14 cm LVOT VTI/AV VTI Ratio 0.7 LVOT Stroke Volume 42 ml LVOT CO 3.0 l/min LVOT CI 1.6 l/min/m2 Pulmonic Valve Name Value Normal
[2023-06-13 00:29] LABS: Anion Gap 9 mmol/L (4-12); Blood Urea Nitrogen 67 mg/dL (9-20); Calcium 9.1 mg/dL (8.4-10.2); Carbon Dioxide 18 mmol/L (22-30); Chloride 112 mmol/L (98-107); Estimated CRCL calculation 11 ml/min; Estimated Glomerular Filt Rate 13; Glucose 114 mg/dL (65-110); Potassium 5.2 mmol/L (3.4-5.0); Sodium 139 mmol/L (137-145)
[2023-06-13] MEDS: levETIRAcetam 500 MG TABLET PO ×3 (01:16→20:05)
[2023-06-13 06:13] LABS: Hematocrit 30.4 % (42.0-52.0); Hemoglobin 9.5 g/dL (14.0-18.0); Mean Corpuscular HGB Conc 31.3 g/dl (32-36); Mean Corpuscular Volume 99.3 fl (80-100); Mean Platelet Volume 11.1 fl (7.4-10.4); Platelet Count Result 265 k/mm3 (150-375); Red Blood Count 3.06 M/mm3 (4.6-6.20); White Blood Count 8.2 K/mm3 (4.5-10.0)
[2023-06-13 06:26] LABS: Anion Gap 8 mmol/L (4-12); Blood Urea Nitrogen 65 mg/dL (9-20); Carbon Dioxide 18 mmol/L (22-30); Chloride 113 mmol/L (98-107); Estimated CRCL calculation 12 ml/min; Estimated Glomerular Filt Rate 14; Glucose 95 mg/dL (65-110); Potassium 4.7 mmol/L (3.4-5.0); Sodium 139 mmol/L (137-145)
--- NOTE | 2023-06-13 08:22 | PM.IMPN ---
Progress Note: A&P Assessment and Plan (1) Unresponsive episode: Code(s): R40.4 - Transient alteration of awareness Status: Acute (2) Cerebrovascular accident: Code(s): I63.9 - Cerebral infarction, unspecified Status: Acute (3) Chronic kidney disease: Code(s): N18.9 - Chronic kidney disease, unspecified Status: Acute (4) Hypertension: Code(s): I10 - Essential (primary) hypertension Status: Chronic (5) Hyperlipidemia: Code(s): E78.5 - Hyperlipidemia, unspecified Status: Acute Plan The patient presented to the emergency department for evaluation of an unresponsive episode which occurred during therapy as detailed in HPI. Labs, imaging, EKG, and all reports were personally reviewed. On arrival to the ED he was hypotensive with right gaze deviation and left-sided weakness and an NIH Stroke Scale of 14. Symptoms improved with IV fluid bolus and lying in a supine position with repeat stroke scale being 0. Head CT showed a small focus of decreased attenuation right basal ganglia which is new compared to prior study and suspicious for recent infarct. Brain MRI has been ordered for tomorrow. Seizure is still a consideration as is syncope. Start Keppra 500 mg b.i.d.. Continue neurologic checks q.4 hours. Initiate fall precautions. Blood pressures were reviewed and they have been stable since arrival to the floor. His potassium is a bit high and will repeat BMP this evening to ensure it is improving. Ho catheter is patent and draining. His home medications will be reviewed and resumed as appropriate. Findings and treatment plan were discussed with the patient. 06/12 unresponsiveness suspecting syncope versus seizure CT of head suggest recent small focal stroke at the right basal ganglia? CT of head also reveals 12 x 10 mm extra-axial mass at the anterior margin of the right sylvian fissure along the greater wing of the sphenoid most likely representing a meningioma brain MRI is pending telemetry monitoring Neuro check orthostatic test Continue Keppra 500 mg b.i.d. consult neurologist hypovolemic hypotension, CKD stage 5 , hyperkalemia upon arrival in the ED, patient was found hypertension, 75/47. patient has stage V CKD, elevated BUN creatinine above baseline received fluid resuscitation, blood pressure became stable hyperkalemia resolved Hold hypertension medication consult atomizer assembler for evaluation treatment chronic anemia No obvious bleeding Likely secondary to CKD follow-up CBC Management per atomizer assembler Hypothyroidism Continue Synthroid home dose Subjective Date/time seen: 06/13/23 08:22 Interval history: I saw And examined patient today, patient feels better, denies headache, lightheadedness, chest pain, palpitation, abdomen pain, nausea vomiting. Patient had per our intake. Exam Narrative: General:?Well-developed, nontoxic-appearing gentleman sitting up in bed in no acute distress. Weight: 70.9 kg. BMI: 23.1. HEENT:??PERRL, EOMI. Sclera anicteric.? Oral mucosa moist. Neck:??Supple. No bruits. Respiratory:?Lungs are clear to auscultation bilaterally. Cardiovascular:??Regular rate and rhythm with S1-S2. Gastrointestinal:??Abdomen is soft, nontender, and nondistended with positive bowel sounds. Genitourinary:?Ho catheter draining clear, light yellow urine. Skin:??Warm and dry. Extremities:??No cyanosis, clubbing, or significant edema. Radial and pedal pulses intact. Neurological:??Alert and oriented.? Cranial nerves 2-12 are grossly intact. Speech is clear. No facial asymmetry. No pronator drift. Strength is equal in upper and lower extremities. No gross focal deficits to casual conversation. Psychiatric:??Pleasant and cooperative with appropriate mood and affect. Objective Data Vital Signs Vital Signs: Vital Signs - 24 hr 06/12/23 14:27 06/12/23 14:45 06/12/23 15:15 Temperature 97.9 F Pulse Rate 82 77 7
[2023-06-13] MEDS: TAMSULOSIN HCL 0.4 MG CAPSULE PO (09:55)
--- NOTE | 2023-06-13 12:32 | WPDNEURCNPN ---
Assessment and Plan Assessment and plan (1) Cerebrovascular accident: Code(s): I63.9 - Cerebral infarction, unspecified Status: Acute (2) Syncope: Code(s): R55 - Syncope and collapse Status: Acute (3) Hyperlipidemia: Code(s): E78.5 - Hyperlipidemia, unspecified Status: Acute (4) Hypertension: Code(s): I10 - Essential (primary) hypertension Status: Chronic (5) Chronic kidney disease: Code(s): N18.9 - Chronic kidney disease, unspecified Status: Acute Plan Mr. Aldana is an? year old male currently who was admitted last week due to renal failure. During that admission he had a transient episode of L sided weakness, L gaze deviation, and speech change. MRI brain, MRA brain and carotid Doppler study unrevealing. EEG normal as well. He was started on Keppra due to concerns for seizures. Patient presented again after a syncopal episode followed by L sided weakness. MRI brain showed acute infarct in the posterior limbe of the R internal capsule. He has minimal deficits from this today. Based on imaging looks like a lacunar infarct (Small vessel stroke), but his LDL is within appropriate range, he is not diabetic, and he is not severely hypertensive. Vessel imaging from the last admission was unrevealing. Therefore also considering cryptogenic stroke. Syncope/presyncopal episodes appear to be related to hypotension. - It's recommended that patient's with lacunar infarcts be on DAPT for 3 weeks (aspirin 81mg and Plavix 75mg) , and then just aspirin 81mg daily. Please consult Nephrology regarding whether this would be okay from a renal standpoint. - Repeat MRA brain and carotid Doppler study - Please obtain surface echo with bubble study. If negative, please discharge with 30 day event monitor - Check orthostatic vitals - LDL and HgbA1c are at goal Consult date: 06/13/23 Reason for consult: Acute stroke HPI: Matthew Aldana is a 88 year old male with a history of HTN, hLD, prostate cancer, hypothyroidism, CKD who was recently admitted for renal failure. Patient presented yesterday after having a syncopal episode while working with OT. Patient's family members report that since discharge, he has been having presyncopal episodes when going from sitting to standing. During the admission that lead to the admission, patient was preforming a practice shower when he became unresponsive and slumped over. On arrival to the ER his BP was in the 70s systolic. He was lethargic with R gaze deviation, and limited movement on the L side. He was given fluids and his symptoms improved. CT head showed area of hypodensity in the R basal ganglia concerning for new stroke. ED physician discussed possible acute stroke interventions with family but they declined. MRI brain confirmed acute infarct involving the posterior limb of the right internal capsule. Last week, during the prior admission, patient also had a transient episode of L sided weakness, with left gaze deviation, and speech change. MRI brain showed no evidence of stroke. MRA brain and carotid Doppler study was normal as well. EEG was normal. He was started on Keppra. LDL and HgbA1c was within appropriate range (59 and 5.1 respectively). Echo with bubble study was recommended but not done at the last admission. His highest BP from that admission was in the 170s systolic, but that was the only reading, otherwise was fairly normotensive. From this admission the highest his BP has been in the 140s. EKG showed sinus rhythm. Review of Systems Review of Systems: All systems reviewed & are unremarkable except as noted in HPI and below PMFSH Past Medical History Medical History Chronic anemia Chronic kidney disease Dyslipidemia Hypertension Hypothyroidism Prostate cancer Skin cancer Surgical History Surgical History History of bilateral inguinal one[place]
--- NOTE | 2023-06-13 13:10 | PM.CNNEP ---
Assessment and Plan Assessment and plan (1) Chronic kidney disease (CKD), stage V: Code(s): N18.5 - Chronic kidney disease, stage 5 Status: Chronic Assessment and Plan: recent admission for TABATHA/ARF on CKD due to obstructive uropathy/urinary retention/bilateral hydronephrosis despite all interventions (rodriguez catheter + cystoscopy & bilateral ureteral stents), kidney function never normalized creatinine stabilized to around 4.0mg/dl on discharge unclear if further improvement might occur with time higher creatinine on admission likely secondary to hypotension creatinine appears stable at this time follow repeat labs and UOP (2) Cerebrovascular accident: Code(s): I63.9 - Cerebral infarction, unspecified Status: Acute Assessment and Plan: as noted by imaging to date Neurology recommendations noted assuming no bleeding issues/concerns; not opposed to DAPT (3) Chronic anemia: Code(s): D64.9 - Anemia, unspecified Status: Chronic Assessment and Plan: possibly related to underlying CKD follow trend of H/H (4) Hypertension: Code(s): I10 - Essential (primary) hypertension Status: Chronic Assessment and Plan: reasonable control at this time follow trend of hemodynamics I will continue follow patient with you while he remains hospitalized and make further recommendations as deemed necessary Thank you for allowing me to participate in care of this patient. History of Present Illness Reason for Consult Consult date: 06/13/23 Reason for consult: chronic renal failure Chief Complaint Chief complaint: syncope,stroke History of Present Illness Narrative: The patient is a 88-year-old male with a past medical history as outlined below who presented to [facility] Emergency room for further evaluation of a syncopal episode. The patient was just recently discharged from [facility] following issues related to acute kidney injury/ acute renal failure on top of his baseline chronic kidney disease secondary to bilateral hydronephrosis/ obstructive uropathy/ urinary retention that required cystoscopy, bilateral ureteral stent placement, and placement of a Rodriguez catheter which unfortunately did not really resolve his acute kidney injury/acute renal failure. During that hospitalization, he had an episode of transient left-sided weakness and slurred speech but extensive evaluation at that time including a brain MRI and EEG was essentially negative but he was empirically started on Keppra on the possibility of a seizure. He was subsequently discharged from that hospitalization with a chronic Rodriguez catheter as he failed a voiding trial with its discontinuation. The patient was apparently undergoing occupational therapy early on the day of admission. He was apparently practicing a shower with the occupational therapists when he suddenly became unresponsive. EMS was called and he was transported to the emergency room for further assessment. Workup and evaluation emergency room demonstrated the patient be quite hypotensive with a systolic BP in the 70s. He was apparently alert but poorly responsive with limited movement on his left side. After IV fluid boluses and improvement in his blood pressure, his symptoms seemed to improve as did his mentation. Routine blood test demonstrated a CBC with mild anemia but no significant change in comparison to his previous hospitalization and his chemistry showed an S slightly elevated BUN and creatinine above his baseline from his recent hospital discharge. On repeat assessment by the ER physician, the patient had clinically improved and denies any acute issues or problems. On-call neurology was consulted and was recommended that the patient be admitted to the hospital for further evaluation and therapy. Renal consultation was requested due his chronic kidney disease. As mentioned, his previous baseline creatin
--- NOTE | 2023-06-13 13:45 | PC.NURSE ---
On 06/13/23, the student, [Hilaria Vargas], provided care and completed [facility] documentation on this patient. I have reviewed the student's documentation and agree with the findings.
--- NOTE | 2023-06-13 14:42 | PC.NURSE ---
On 06/13/23, the student, [James Puente], provided care and completed [facility] documentation on this patient. I have reviewed the student's documentation and agree with the findings.
[2023-06-14] VITALS (9 sets, daily range): BP systolic 102–130; BP diastolic 55–78; PULSE 79–91; RESP 16–17; TEMP 36.4–36.6; O2SAT 97–100
[2023-06-14] MEDS: LEVOTHYROXINE SODIUM 25 MCG TABLET PO (06:24)
--- NOTE | 2023-06-14 07:55 | PM.IMPN ---
Progress Note: A&P Assessment and Plan (1) Unresponsive episode: Code(s): R40.4 - Transient alteration of awareness Status: Acute (2) Cerebrovascular accident: Code(s): I63.9 - Cerebral infarction, unspecified Status: Acute (3) Chronic kidney disease: Code(s): N18.9 - Chronic kidney disease, unspecified Status: Acute (4) Hypertension: Code(s): I10 - Essential (primary) hypertension Status: Chronic (5) Hyperlipidemia: Code(s): E78.5 - Hyperlipidemia, unspecified Status: Acute Plan The patient presented to the emergency department for evaluation of an unresponsive episode which occurred during therapy as detailed in HPI. Labs, imaging, EKG, and all reports were personally reviewed. On arrival to the ED he was hypotensive with right gaze deviation and left-sided weakness and an NIH Stroke Scale of 14. Symptoms improved with IV fluid bolus and lying in a supine position with repeat stroke scale being 0. Head CT showed a small focus of decreased attenuation right basal ganglia which is new compared to prior study and suspicious for recent infarct. Brain MRI has been ordered for tomorrow. Seizure is still a consideration as is syncope. Start Keppra 500 mg b.i.d.. Continue neurologic checks q.4 hours. Initiate fall precautions. Blood pressures were reviewed and they have been stable since arrival to the floor. His potassium is a bit high and will repeat BMP this evening to ensure it is improving. Ho catheter is patent and draining. His home medications will be reviewed and resumed as appropriate. Findings and treatment plan were discussed with the patient. 06/12 unresponsiveness suspecting syncope versus seizure CT of head suggest recent small focal stroke at the right basal ganglia? CT of head also reveals 12 x 10 mm extra-axial mass at the anterior margin of the right sylvian fissure along the greater wing of the sphenoid most likely representing a meningioma brain MRI is pending telemetry monitoring Neuro check orthostatic test Continue Keppra 500 mg b.i.d. consult neurologist 06/14 MRI brain 1. Acute infarct involving the posterior limb right internal capsule. 2. 13 mm enhancing extra-axial mass overlying the right sylvian fissure, consistent with a meningioma. 3. Extensive nonspecific cerebral white matter disease, which likely represents chronic small vessel ischemic disease. echocardiogram showed ? 1. Left ventricular chamber dimension is normal. ? 2. Left ventricular systolic function is normal, estimated at 55-60%. ? 3. There is mildly increased left ventricular wall thickness. ? 4. The left ventricular diastolic function is grade I diastolic dysfunction. ? 5. Right ventricular systolic function is normal. ? 6. Intact interatrial septum visualized by color flow and agitated saline imaging. Negative bubble study. ? 7. There is mild tricuspid valve regurgitation. MRA brain 1. No aneurysm or significant arterial occlusive disease. 2. 1.3 cm extra-axial mass overlying right sylvian fissure, consistent with a meningioma. carotid Doppler study 1. <50% stenosis in the right internal carotid artery. 2. <50% stenosis in the left internal carotid artery. hypovolemic hypotension, CKD stage 5 , hyperkalemia upon arrival in the ED, patient was found hypertension, 75/47. patient has stage V CKD, elevated BUN creatinine above baseline received fluid resuscitation, blood pressure became stable hyperkalemia resolved Hold hypertension medication consult equipment service engineer for evaluation treatment BP is low s/w NS 100ml/h chronic anemia No obvious bleeding Likely secondary to CKD follow-up CBC Management per equipment service engineer Hypothyroidism Continue Synthroid home dose consult PT OT health social work professor for evaluation and assisting placement patient may benefit from rehab Subjective Date/time seen: 06/14/23 07:55 Interval history: I saw and
[2023-06-14] MEDS: TAMSULOSIN HCL 0.4 MG CAPSULE PO (08:52)
[2023-06-14] MEDS: levETIRAcetam 500 MG TABLET PO ×2 (08:52→20:51)
[2023-06-14] MEDS: SODIUM CHLORIDE 0.9% IV 1,000 ML 100 ML IV CONT ×2 (09:14→22:29)
[2023-06-14 09:49] LABS: Basophils Absolute Auto 0.1 K/mm3 (0.0-0.1); Basophils Percent Auto 0.8 % (0.2-1.2); Eosinophils Absolute Auto 0.4 K/mm3 (0-0.3); Eosinophils Percent Auto 4.5 % (0-4.4); Hematocrit 32.6 % (42.0-52.0); Hemoglobin 10.3 g/dL (14.0-18.0); Immature Granulocyte Absolute 0.11 K/mm3 (0.00-0.031); Immature Granulocyte Percent A 1.3 % (0-0.5); Lymphocytes Absolute Auto 1.18 K/mm3 (0.9-3.2); Lymphocytes Percent Auto 13.7 % (18.3-44.2); Mean Corpuscular HGB Conc 31.6 g/dl (32-36); Mean Corpuscular Hemoglobin 31.4 pg (26-34); Mean Corpuscular Volume 99.4 fl (80-100); Mean Platelet Volume 10.3 fl (7.4-10.4); Monocytes Absolute Auto 0.7 K/mm3 (0.1-0.6); Monocytes Percent Auto 8.2 % (2.6-8.5); Neutrophils Absolute Auto 6.2 K/mm3 (1.3-6.7); Neutrophils Percent Auto 71.5 % (45.5-73.1); Platelet Count Result 273 k/mm3 (150-375); Red Blood Count 3.28 M/mm3 (4.6-6.20); Red Cell Distribution Width 15.2 % (11.5-14.5); White Blood Count 8.6 K/mm3 (4.5-10.0)
[2023-06-14 10:03] LABS: Albumin Level 3.7 g/dL (3.5-5.1); Anion Gap 11 mmol/L (4-12); Blood Urea Nitrogen 61 mg/dL (9-20); Carbon Dioxide 18 mmol/L (22-30); Chloride 110 mmol/L (98-107); Estimated CRCL calculation 13 ml/min; Estimated Glomerular Filt Rate 16; Glucose 144 mg/dL (65-110); Phosphorus 3.7 mg/dL (2.5-4.5); Potassium 4.9 mmol/L (3.4-5.0); Sodium 139 mmol/L (137-145)
--- NOTE | 2023-06-14 10:18 | P.PNNP_ITS ---
Progress Note: A&P Assessment and Plan (1) Chronic kidney disease (CKD), stage V: Code(s): N18.5 - Chronic kidney disease, stage 5 Status: Chronic Assessment and Plan: * recent admission for TABATHA/ARF on CKD due to obstructive uropathy/urinary retention/bilateral hydronephrosis * despite all interventions (rodriguez catheter + cystoscopy & bilateral ureteral stents), kidney function never normalized * creatinine stabilized to around 4.0mg/dl on discharge * unclear if further improvement might occur with time * higher creatinine on admission likely secondary to hypotension * creatinine appears stable at this time * follow repeat labs and UOP (2) Cerebrovascular accident: Code(s): I63.9 - Cerebral infarction, unspecified Status: Acute Assessment and Plan: * as noted by imaging to date * Neurology recommendations noted * assuming no bleeding issues/concerns; not opposed to DAPT (3) Chronic anemia: Code(s): D64.9 - Anemia, unspecified Status: Chronic Assessment and Plan: * possibly related to underlying CKD * follow trend of H/H (4) Hypertension: Code(s): I10 - Essential (primary) hypertension Status: Chronic Assessment and Plan: * reasonable control at this time * follow trend of hemodynamics Will continue to follow. Subjective Date/time seen: 06/14/23 10:18 Interval history: Follow-up for chronic kidney disease. No apparent distress voiced at the time of my visit; sitting up in chair when seen and reports that he feels reasonably well; renal function stable if not a tad better by AM labs; no other issues/events overnight or earlier this morning. Exam Narrative: General: elderly but WD/WN male in NAD Heart: normal S1 and S2; no rub Lungs: clear to auscultation Abdomen: soft, nontender, nondistended, positive bowel sounds Extremities: no cyanosis or clubbing; no edema Skin: warm and dry Objective Data Vital Signs Vital Signs: Vital Signs Temp Pulse Resp BP Pulse Ox O2 Del Method 06/14/23 10:03 97.5 F L 91 17 120/68 100 06/14/23 08:00 85 06/14/23 08:52 Room Air 06/14/23 04:51 97.8 F 84 16 102/55 L 97 06/14/23 04:00 85 06/14/23 00:00 86 06/13/23 20:00 Room Air 06/13/23 20:00 86 06/13/23 19:24 98.3 F 77 16 118/50 L 99 Intake/Output Intake/Output: Intake & Output 06/11/23 06/12/23 06/13/23 06/14/23 23:59 23:59 23:59 23:59 Intake Total 1000 840 610 Output Total 350 1700 550 Balance 650 -860 60 Meds/Results Medications: Active Medications Generic Name Dose Route Start Last Admin Trade Name Freq PRN Reason Stop Dose Admin Acetaminophen 650 mg 06/12/23 16:19 Acetaminophen 325 Mg Tablet PO Q4H PRN Mild Pain (1-3) or Fever Hydrocodone Bitart/Acetaminophen 1 tab 06/12/23 16:19 Hydrocodone/Acetaminophen (*Crx) 5-325 Mg Tablet PO Q4H PRN Pain Rated 4-6 Aspirin 81 mg 06/15/23 09:00 Aspirin 81 Mg Enteric Tablet PO QAM [facility] Atorvastatin Calcium 40 mg 06/15/23 09:00 Atorva
--- NOTE | 2023-06-14 10:18 | PM.PNNEP ---
Progress Note: A&P Assessment and Plan (1) Chronic kidney disease (CKD), stage V: Code(s): N18.5 - Chronic kidney disease, stage 5 Status: Chronic Assessment and Plan: recent admission for TABATHA/ARF on CKD due to obstructive uropathy/urinary retention/bilateral hydronephrosis despite all interventions (rodriguez catheter + cystoscopy & bilateral ureteral stents), kidney function never normalized creatinine stabilized to around 4.0mg/dl on discharge unclear if further improvement might occur with time higher creatinine on admission likely secondary to hypotension creatinine appears stable at this time follow repeat labs and UOP (2) Cerebrovascular accident: Code(s): I63.9 - Cerebral infarction, unspecified Status: Acute Assessment and Plan: as noted by imaging to date Neurology recommendations noted assuming no bleeding issues/concerns; not opposed to DAPT (3) Chronic anemia: Code(s): D64.9 - Anemia, unspecified Status: Chronic Assessment and Plan: possibly related to underlying CKD follow trend of H/H (4) Hypertension: Code(s): I10 - Essential (primary) hypertension Status: Chronic Assessment and Plan: reasonable control at this time follow trend of hemodynamics Will continue to follow. Subjective Date/time seen: 06/14/23 10:18 Interval history: Follow-up for chronic kidney disease. No apparent distress voiced at the time of my visit; sitting up in chair when seen and reports that he feels reasonably well; renal function stable if not a tad better by AM labs; no other issues/events overnight or earlier this morning. Exam Narrative: General: elderly but WD/WN male in NAD Heart: normal S1 and S2; no rub Lungs: clear to auscultation Abdomen: soft, nontender, nondistended, positive bowel sounds Extremities: no cyanosis or clubbing; no edema Skin: warm and dry Objective Data Vital Signs Vital Signs: Vital Signs Temp Pulse Resp BP Pulse Ox O2 Del Method 06/14/23 10:03 97.5 F L 91 17 120/68 100 06/14/23 08:00 85 06/14/23 08:52 Room Air 06/14/23 04:51 97.8 F 84 16 102/55 L 97 06/14/23 04:00 85 06/14/23 00:00 86 06/13/23 20:00 Room Air 06/13/23 20:00 86 06/13/23 19:24 98.3 F 77 16 118/50 L 99 Intake/Output Intake/Output: Intake & Output 06/11/23 06/12/23 06/13/23 06/14/23 23:59 23:59 23:59 23:59 Intake Total 1000 840 610 Output Total 350 1700 550 Balance 650 -860 60 Meds/Results Medications: Active Medications Generic Name Dose Route Start Last Admin Trade Name Freq PRN Reason Stop Dose Admin Acetaminophen 650 mg 06/12/23 16:19 Acetaminophen 325 Mg Tablet PO Q4H PRN Mild Pain (1-3) or Fever Hydrocodone Bitart/Acetaminophen 1 tab 06/12/23 16:19 Hydrocodone/Acetaminophen (*Crx) 5-325 Mg Tablet PO Q4H PRN Pain Rated 4-6 Aspirin 81 mg 06/15/23 09:00 Aspirin 81 Mg Enteric Tablet PO QAM [facility] Atorvastatin Calcium 40 mg 06/15/23 09:00 Atorvastatin 40 Mg Tablet PO DAILY [facility]ASIDY Sodium Chloride 1,000 mls @ 100 mls/hr 06/14/23 08:00 06/14/23 09:14 Normal Saline Iv IV CONT 100 mls/hr .Q10H CHASIDY Administration Levetiracetam 500 mg 06/12/23 23:35 06/14/23 08:52 Levetiracetam 500 Mg Tablet PO 500 mg Q12HR [facility] Administration Levothyroxine Sodium 25 mcg 06/14/23 06:30 06/14/23 06:24 Levothyroxine Sodium 25 Mcg Tablet PO 25 mcg DAILY@0630 CHASIDY Administration Ondansetron HCl 4 mg 06/12/23 16:19 Ondansetron Inj 4 Mg/2 Ml Vial IV PUSH Q4H PRN Nausea Tamsulosin HCl 0.4 mg 06/13/23 09:00 06/14/23 08:52 Tamsulosin Hcl 0.4 Mg Capsule PO 0.4 mg QAM [facility] Administration Radiology Results: ITS Impressions Head CT 06/12/23 14:58 IMPRESSION: 1. Small focus of decreased attenuation at the right basal ganglia which is n
--- NOTE | 2023-06-14 14:53 | WPDNEUROPN ---
Progress Note: A&P Assessment and Plan (1) Right-sided cerebrovascular accident (CVA): Code(s): I63.9 - Cerebral infarction, unspecified Status: Acute (2) Seizure-like activity: Code(s): R56.9 - Unspecified convulsions Status: Acute Subjective Date/time seen: 06/14/23 14:53 Interval history: The patient is 88 years old with history of left-sided weakness and possible seizure-like activity at the time of presentation. He is currently stable. His family members to have his son and son-in-law were present the time of evaluation. He is on Keppra. His MRI of the brain had shown some findings that we would be discussed below. No additional new symptoms reported. He has been fairly alert and had not had any further lapse in Mental status. Exam Narrative: Fully conscious alert oriented to self time place and person. Cranial tinnitus to intact. Visual weeks were confrontation are normal. No facial asymmetry. Motor system normal power and tone in both upper and lower limb. Since he was a grossly intact. No involuntary movements are seen. Objective Data Vital Signs Vital Signs: Vital Signs - 24 hr 06/13/23 14:55 06/13/23 19:24 06/13/23 20:00 Temperature 36.5 C 36.8 C Pulse Rate 86 77 86 Respiratory Rate 18 16 Blood Pressure 114/60 118/50 L Pulse Oximetry 100 99 Oxygen Delivery 06/13/23 20:00 06/14/23 00:00 06/14/23 04:00 Temperature Pulse Rate 86 85 Respiratory Rate Blood Pressure Pulse Oximetry Oxygen Delivery Room Air 06/14/23 04:51 06/14/23 08:52 06/14/23 08:00 Temperature 36.6 C Pulse Rate 84 85 Respiratory Rate 16 Blood Pressure 102/55 L Pulse Oximetry 97 Oxygen Delivery Room Air 06/14/23 13:22 06/14/23 14:03 06/14/23 12:00 Temperature 36.4 C L Pulse Rate 91 87 Respiratory Rate 17 Blood Pressure 120/68 Pulse Oximetry 100 Oxygen Delivery Room Air Intake/Output Intake/Output: Intake & Output 06/11/23 06/12/23 06/13/23 06/14/23 23:59 23:59 23:59 23:59 Intake Total 1000 840 610 Output Total 350 1700 550 Balance 650 -860 60 Meds/Results Medications: Active Medications Generic Name Dose Route Start Last Admin Trade Name Freq PRN Reason Stop Dose Admin Acetaminophen 650 mg 06/12/23 16:19 Acetaminophen 325 Mg Tablet PO Q4H PRN Mild Pain (1-3) or Fever Hydrocodone Bitart/Acetaminophen 1 tab 06/12/23 16:19 Hydrocodone/Acetaminophen (*Crx) 5-325 Mg Tablet PO Q4H PRN Pain Rated 4-6 Sodium Chloride 1,000 mls @ 100 mls/hr 06/14/23 08:00 06/14/23 09:14 Normal Saline Iv IV CONT 100 mls/hr .Q10H [facility]Y Administration Levetiracetam 500 mg 06/12/23 23:35 06/14/23 08:52 Levetiracetam 500 Mg Tablet PO 500 mg Q12HR [facility]Y Administration Levothyroxine Sodium 25 mcg 06/14/23 06:30 06/14/23 06:24 Levothyroxine Sodium 25 Mcg Tablet PO 25 mcg DAILY@0630 CHASIDY Administration Ondansetron HCl 4 mg 06/12/23 16:19 Ondansetron Inj 4 Mg/2 Ml Vial IV PUSH Q4H PRN Nausea Tamsulosin HCl 0.4 mg 06/13/23 09:00 06/14/23 08:52 Tamsulosin Hcl 0.4 Mg Capsule PO 0.4 mg QAM [facility] Administration Radiology Results: ITS Impressions Head CT 06/12/23 14:58 IMPRESSION: 1. Small focus of decreased attenuation at the right basal ganglia which is new since the prior study suspicious for recent infarct. No evident intracranial hemorrhage. 2. 12 x 10 mm extra-axial mass at the anterior margin of the right sylvian fissure along the greater wing of the sphenoid most likely representing a meningioma. Recommend further evaluation with pre and postcontrast MRI. Chest X-Ray 06/12/23 15:16 IMPRESSION: 1. Mild atelectasis in left lower lung zone. Brain MRI 06/13/23 09:33 IMPRESSION: 1. Acute infarct involving the posterior limb right internal capsule. 2. 13 mm enhancing extra-axial mass overlying the right sylvian fissure, consistent with
[2023-06-14 16:18] LABS: Vitamin D 25 Hydroxy 82.7 ng/mL
[2023-06-14 16:34] LABS: Cholesterol 119 mg/dL (0-200); HDL Direct 21 mg/dL; Triglycerides 134 mg/dL (<150)
[2023-06-14 16:46] LABS: LDL Cholesterol Direct 74 mg/dL
[2023-06-14 17:40] LABS: Folic Acid 15.6 ng/mL (2.76->20)
[2023-06-15] VITALS (10 sets, daily range): BP systolic 134–147; BP diastolic 74–88; PULSE 80–93; RESP 16–18; TEMP 36.4–36.8; O2SAT 99–100
[2023-06-15 04:36] LABS: Hematocrit 29.9 % (42.0-52.0); Hemoglobin 9.4 g/dL (14.0-18.0); Mean Corpuscular HGB Conc 31.4 g/dl (32-36); Mean Corpuscular Hemoglobin 31.2 pg (26-34); Mean Corpuscular Volume 99.3 fl (80-100); Mean Platelet Volume 10.3 fl (7.4-10.4); Platelet Count Result 235 k/mm3 (150-375); Red Blood Count 3.01 M/mm3 (4.6-6.20); White Blood Count 8.3 K/mm3 (4.5-10.0)
[2023-06-15 04:45] LABS: Albumin Level 3.2 g/dL (3.5-5.1); Anion Gap 7 mmol/L (4-12); Blood Urea Nitrogen 55 mg/dL (9-20); Calcium 8.5 mg/dL (8.4-10.2); Carbon Dioxide 17 mmol/L (22-30); Chloride 115 mmol/L (98-107); Estimated CRCL calculation 15 ml/min; Estimated Glomerular Filt Rate 18; Glucose 95 mg/dL (65-110); Phosphorus 3.6 mg/dL (2.5-4.5); Potassium 4.7 mmol/L (3.4-5.0); Sodium 139 mmol/L (137-145)
[2023-06-15] MEDS: LEVOTHYROXINE SODIUM 25 MCG TABLET PO (06:32)
[2023-06-15] MEDS: SODIUM CHLORIDE 0.9% IV 1,000 ML 100 ML IV CONT (08:50)
[2023-06-15] MEDS: ATORVASTATIN 40 MG TABLET PO (08:51)
[2023-06-15] MEDS: ASPIRIN 81 MG ENTERIC TABLET PO (08:51)
[2023-06-15] MEDS: levETIRAcetam 500 MG TABLET PO ×2 (08:51→21:24)
[2023-06-15] MEDS: TAMSULOSIN HCL 0.4 MG CAPSULE PO (08:51)
--- NOTE | 2023-06-15 12:07 | P.PNNP_ITS ---
Progress Note: A&P Assessment and Plan (1) Chronic kidney disease (CKD), stage V: Code(s): N18.5 - Chronic kidney disease, stage 5 Status: Chronic Assessment and Plan: * recent admission for TABATHA/ARF on CKD due to obstructive uropathy/urinary retention/bilateral hydronephrosis * Creatinine had improved from around 5 to around 4.1 discharge. * He came back in with a stroke and was up to 4.9 but now has improved to 3.2 with for blood pressure and hydration. * Continue to watch the creatinine as we go. * Will reduce IV fluids to 75 because mucous membranes are now moist and his blood pressure is doing well. * Will check another set of labs tomorrow. (2) Cerebrovascular accident: Code(s): I63.9 - Cerebral infarction, unspecified Status: Acute Assessment and Plan: * as noted by imaging to date * Neurology recommendations noted * assuming no bleeding issues/concerns; not opposed to DAPT (3) Chronic anemia: Code(s): D64.9 - Anemia, unspecified Status: Chronic Assessment and Plan: * possibly related to underlying CKD * Hemoglobin ranging 9.4-10.3. * Hemoglobin holding its own without ANGEL. (4) Hypertension: Code(s): I10 - Essential (primary) hypertension Status: Chronic Assessment and Plan: * reasonable control at this time * follow trend of hemodynamics Subjective Date/time seen: 06/15/23 12:07 Interval history: Family in the room. Patient is lying on his right side. Breathing comfortably. He denies any nausea or diarrhea. Has no appetite. Exam Narrative: General: elderly but WD/WN male in NAD Heart: normal S1 and S2; no rub or gallop Lungs: clear bilaterally Abdomen: soft, nontender, nondistended, positive bowel sounds Extremities: no cyanosis or clubbing; no edema Skin: No rash Objective Data Vital Signs Vital Signs: Vital Signs - 24 hr 06/14/23 13:22 06/14/23 14:03 06/14/23 16:00 Temperature 97.5 F L Pulse Rate 91 79 Respiratory Rate 17 Blood Pressure 120/68 Pulse Oximetry 100 Oxygen Delivery Room Air 06/14/23 21:43 06/14/23 20:00 06/14/23 20:00 Temperature 97.6 F Pulse Rate 86 87 Respiratory Rate 16 Blood Pressure 130/78 Pulse Oximetry 100 Oxygen Delivery Room Air 06/15/23 00:00 06/15/23 06:00 06/15/23 04:00 Temperature 97.5 F L Pulse Rate 89 82 87 Respiratory Rate 18 Blood Pressure 147/77 H Pulse Oximetry 99 Oxygen Delivery 06/15/23 08:00 06/15/23 08:51 Temperature Pulse Rate 82 Respiratory Rate Blood Pressure Pulse Oximetry Oxygen Delivery Room Air Intake/Output Intake/Output: Intake & Output 06/12/23 06/13/23 06/14/23 06/15/23 23:59 23:59 23:59 23:59 Intake Total 0320 278 2663 1300 Output Total 350 1700 1250 800 Balance 650 -860 830 500 Meds/Results Medications: Active Medications Generic Name Dose Route Start Last Admin Trade Name Freq PRN Reason Stop Dose Admin Acetaminophen 650 mg
--- NOTE | 2023-06-15 12:07 | PM.PNNEP ---
Progress Note: A&P Assessment and Plan (1) Chronic kidney disease (CKD), stage V: Code(s): N18.5 - Chronic kidney disease, stage 5 Status: Chronic Assessment and Plan: recent admission for TABATHA/ARF on CKD due to obstructive uropathy/urinary retention/bilateral hydronephrosis Creatinine had improved from around 5 to around 4.1 discharge. He came back in with a stroke and was up to 4.9 but now has improved to 3.2 with for blood pressure and hydration. Continue to watch the creatinine as we go. Will reduce IV fluids to 75 because mucous membranes are now moist and his blood pressure is doing well. Will check another set of labs tomorrow. (2) Cerebrovascular accident: Code(s): I63.9 - Cerebral infarction, unspecified Status: Acute Assessment and Plan: as noted by imaging to date Neurology recommendations noted assuming no bleeding issues/concerns; not opposed to DAPT (3) Chronic anemia: Code(s): D64.9 - Anemia, unspecified Status: Chronic Assessment and Plan: possibly related to underlying CKD Hemoglobin ranging 9.4-10.3. Hemoglobin holding its own without ANGEL. (4) Hypertension: Code(s): I10 - Essential (primary) hypertension Status: Chronic Assessment and Plan: reasonable control at this time follow trend of hemodynamics Subjective Date/time seen: 06/15/23 12:07 Interval history: Family in the room. Patient is lying on his right side. Breathing comfortably. He denies any nausea or diarrhea. Has no appetite. Exam Narrative: General: elderly but WD/WN male in NAD Heart: normal S1 and S2; no rub or gallop Lungs: clear bilaterally Abdomen: soft, nontender, nondistended, positive bowel sounds Extremities: no cyanosis or clubbing; no edema Skin: No rash Objective Data Vital Signs Vital Signs: Vital Signs - 24 hr 06/14/23 13:22 06/14/23 14:03 06/14/23 16:00 Temperature 97.5 F L Pulse Rate 91 79 Respiratory Rate 17 Blood Pressure 120/68 Pulse Oximetry 100 Oxygen Delivery Room Air 06/14/23 21:43 06/14/23 20:00 06/14/23 20:00 Temperature 97.6 F Pulse Rate 86 87 Respiratory Rate 16 Blood Pressure 130/78 Pulse Oximetry 100 Oxygen Delivery Room Air 06/15/23 00:00 06/15/23 06:00 06/15/23 04:00 Temperature 97.5 F L Pulse Rate 89 82 87 Respiratory Rate 18 Blood Pressure 147/77 H Pulse Oximetry 99 Oxygen Delivery 06/15/23 08:00 06/15/23 08:51 Temperature Pulse Rate 82 Respiratory Rate Blood Pressure Pulse Oximetry Oxygen Delivery Room Air Intake/Output Intake/Output: Intake & Output 06/12/23 06/13/23 06/14/23 06/15/23 23:59 23:59 23:59 23:59 Intake Total 2739 536 1326 1300 Output Total 350 1700 1250 800 Balance 650 -860 830 500 Meds/Results Medications: Active Medications Generic Name Dose Route Start Last Admin Trade Name Freq PRN Reason Stop Dose Admin Acetaminophen 650 mg 06/12/23 16:19 Acetaminophen 325 Mg Tablet PO Q4H PRN Mild Pain (1-3) or Fever Hydrocodone Bitart/Acetaminophen 1 tab 06/12/23 16:19 Hydrocodone/Acetaminophen (*Crx) 5-325 Mg Tablet PO Q4H PRN Pain Rated 4-6 Aspirin 81 mg 06/15/23 09:00 06/15/23 08:51 Aspirin 81 Mg Enteric Tablet PO 81 mg QAM CHASIDY Administration Atorvastatin Calcium 40 mg 06/15/23 09:00 06/15/23 08:51 Atorvastatin 40 Mg Tablet PO 40 mg DAILY CHASIDY Administration Sodium Chloride 1,000 mls @ 100 mls/hr 06/14/23 08:00 06/15/23 08:50 Normal Saline Iv IV CONT 100 mls/hr .Q10H CHASIDY Administration Levetiracetam 500 mg 06/12/23 23:35 06/15/23 08:51 Levetiracetam 500 Mg Tablet PO 500 mg Q12HR CHASIDY Administration Levothyroxine Sodium 25 mcg 06/14/23 06:30 06/15/23 06:32 Levothyroxine Sodium 25 Mcg Tablet PO 25 mcg DAILY@0630 CHASIDY Administration Ondansetron HCl 4 mg 06/12/23 16:19 Ondansetro
--- NOTE | 2023-06-15 12:48 | PM.IMPN ---
Progress Note: A&P Assessment and Plan (1) Unresponsive episode: Code(s): R40.4 - Transient alteration of awareness Status: Acute (2) Cerebrovascular accident: Code(s): I63.9 - Cerebral infarction, unspecified Status: Acute (3) Urinary retention: Code(s): R33.9 - Retention of urine, unspecified Status: Acute (4) Hypertension: Code(s): I10 - Essential (primary) hypertension Status: Chronic (5) Hyperlipidemia: Code(s): E78.5 - Hyperlipidemia, unspecified Status: Acute Plan 88-year-old male with past medical history TIA, hypertension, hyperlipidemia, hypothyroidism, chronic anemia, urinary retention with bilateral hydronephrosis status post ureter stent placement on June 05 presents with an episode of altered mental status. Admitted on 06/11. #Cerebrovascular accident and syncope -orthostatics negative. -surface echo with grade 1 diastolic dysfunction and negative bubble study. To be discharged on a 30 day event monitor -LDL in HbA1c are at goal -carotid Dopplers with less than 50% stent stenosis in the right and left ICAs. -head CT on admission demonstrating a 12 x 10 mm extra-axial mass at the anterior margin of the right sylvian fissure likely representing a meningioma. Brain MRI demonstrating no significant arterial occlusive disease. 1.3 cm extra-axial mass overlying right sylvian fissure consistent with meningioma. This will need to be followed. -aspirin 81 mg p.o. q.day indefinitely, Plavix 75 mg p.o. q.day x3 weeks, atorvastatin 40 mg p.o. q.h.s. -due to syncopal episode patient is not to drive until he is 6 months free of further episodes. -continue neuro checks. Continue telemetry. -unknown if the patient had a seizure and he was started on Keppra. Hopefully discontinue this will discuss with Neurology. #Chronic kidney disease stage 5 -serum creatinine on 06/14 improved to 3.2. -management per Nephrology. IV fluids have been decreased to 75 cc/hour. He was hypotensive on admission. -maintain Ho catheter which is to be taken out at the time of follow-up and stent removal with Urology #Chronic anemia -probably related to underlying CKD. Stable. Defer to Nephrology. #Hypertension -currently controlled. #Hyperlipidemia -atorvastatin added this admission. FEN: Normal saline at 75 cc/hour. Heart healthy diet. GI prophylaxis: Not indicated DVT prophylaxis: SCDs. Continue to encourage ambulation. Lines: Peripheral IV, Ho catheter. Code Status: DNR. Dispo: Stable. Patient previously lives at home and was being arranged to have rehab at [facility]. Family requested the patient be discharged from hospital to [facility] for rehab in light of his syncope and stroke. Care coordination and PT consulted. Subjective Date/time seen: 06/15/23 12:48 Interval history: Acute overnight events. [id number], son, son-in-law are present at the bedside. They provide the history. Patient frequently cracks jokes and also gives consistent history. A very pleasant man. Review of Systems Review of Systems: All systems reviewed & are unremarkable except as noted in HPI and below (Subjective) Exam Const: General: comfortable and no acute distress Other: Often makes jokes. In a bright mood. Family reports this is his baseline. Eyes: Pupils: Equal, round and reactive pupils present Neck: Neck: supple Resp: Effort & Inspection: normal respiratory effort Auscultation: clear to auscultation bilaterally Cardio: Rate: regular rate Rhythm: regular rhythm GI: GI Palp: Yes Soft to palpation and No Tenderness to palpation present (GI) Neuro: Motor exam (neuro): 5/5 motor strength present throughout Other: Cranial nerves 2-12 grossly intact Extrem: General: no edema Objective Data Vital Signs Vital Signs: Vital Signs - 24 hr 06/14/23 13:22 06/14/23 14:03 06/14/23 16:00 Temperature 97.5 F L Pulse Rate 91 79
[2023-06-16] VITALS (10 sets, daily range): BP systolic 150–161; BP diastolic 71–86; PULSE 81–111; RESP 14–16; TEMP 36.4–36.6; O2SAT 95–100
[2023-06-16] MEDS: SODIUM CHLORIDE 0.9% IV 1,000 ML 75 ML IV CONT ×2 (04:04→08:23)
[2023-06-16 05:04] LABS: Hematocrit 30.2 % (42.0-52.0); Hemoglobin 9.4 g/dL (14.0-18.0); Mean Corpuscular HGB Conc 31.1 g/dl (32-36); Mean Corpuscular Hemoglobin 31.2 pg (26-34); Mean Corpuscular Volume 100.3 fl (80-100); Mean Platelet Volume 10.7 fl (7.4-10.4); Platelet Count Result 246 k/mm3 (150-375); Red Blood Count 3.01 M/mm3 (4.6-6.20); Red Cell Distribution Width 14.6 % (11.5-14.5); White Blood Count 7.9 K/mm3 (4.5-10.0)
[2023-06-16 05:14] LABS: Albumin Level 3.1 g/dL (3.5-5.1); Anion Gap 8 mmol/L (4-12); Blood Urea Nitrogen 46 mg/dL (9-20); Calcium 8.5 mg/dL (8.4-10.2); Carbon Dioxide 15 mmol/L (22-30); Chloride 117 mmol/L (98-107); Estimated CRCL calculation 17 ml/min; Estimated Glomerular Filt Rate 22; Glucose 100 mg/dL (65-110); Magnesium 2.1 mg/dL (1.6-2.3); Phosphorus 3.5 mg/dL (2.5-4.5); Potassium 4.6 mmol/L (3.4-5.0); Sodium 140 mmol/L (137-145)
[2023-06-16] MEDS: LEVOTHYROXINE SODIUM 25 MCG TABLET PO (05:15)
[2023-06-16] MEDS: ASPIRIN 81 MG ENTERIC TABLET PO (08:23)
[2023-06-16] MEDS: levETIRAcetam 500 MG TABLET PO ×2 (08:23→20:16)
[2023-06-16] MEDS: ATORVASTATIN 40 MG TABLET PO (08:23)
[2023-06-16] MEDS: TAMSULOSIN HCL 0.4 MG CAPSULE PO (08:23)
[2023-06-16] MEDS: CLOPIDOGREL BISULFATE 75 MG TABLET PO (08:23)
--- NOTE | 2023-06-16 14:06 | P.PNNP_ITS ---
Progress Note: A&P Assessment and Plan (1) Chronic kidney disease (CKD), stage V: Code(s): N18.5 - Chronic kidney disease, stage 5 Status: Chronic Assessment and Plan: * recent admission for TABATHA/ARF on CKD due to obstructive uropathy/urinary retention/bilateral hydronephrosis * Creatinine had improved from around 5 to around 4.1 discharge. * Now his creatinine is down to 2.7. * He is not eating at all. Will continue IV fluids at 75 an hour for now. * His sodium level looks okay with so will continue saline. (2) Cerebrovascular accident: Code(s): I63.9 - Cerebral infarction, unspecified Status: Acute Assessment and Plan: * as noted by imaging to date * Neurology recommendations noted * assuming no bleeding issues/concerns; not opposed to DAPT (3) Chronic anemia: Code(s): D64.9 - Anemia, unspecified Status: Chronic Assessment and Plan: * possibly related to underlying CKD * Hemoglobin 9.4 today. * Hemoglobin holding its own without ANGEL. (4) Hypertension: Code(s): I10 - Essential (primary) hypertension Status: Chronic Assessment and Plan: * Blood pressure running 130-161. With recent stroke we do not want to over control the blood pressure. Subjective Date/time seen: 06/16/23 14:06 Interval history: Patient is awake. Family in the room. He still does not have much of an appetite. Exam Narrative: General: elderly but WD/WN male in NAD Heart: normal S1 and S2; no rub or gallop Lungs: clear to auscultation Abdomen: soft, nontender, nondistended, positive bowel sounds Extremities: no edema Skin: No rash or subQ nodules Objective Data Vital Signs Vital Signs: Vital Signs - 24 hr 06/15/23 14:40 06/15/23 16:00 06/15/23 20:20 Temperature 98.2 F 98.0 F Pulse Rate 82 80 84 Respiratory Rate 17 16 Blood Pressure 134/74 144/88 H Pulse Oximetry 99 100 Oxygen Delivery 06/15/23 20:00 06/15/23 21:20 06/16/23 00:00 Temperature Pulse Rate 86 83 Respiratory Rate Blood Pressure Pulse Oximetry Oxygen Delivery Room Air 06/15/23 21:35 06/16/23 04:00 06/16/23 05:16 Temperature 97.9 F Pulse Rate 87 81 Respiratory Rate 14 Blood Pressure 161/84 H Pulse Oximetry 99 98 Oxygen Delivery Room Air 06/16/23 07:37 06/16/23 08:00 06/16/23 08:00 Temperature Pulse Rate 86 Respiratory Rate Blood Pressure Pulse Oximetry 95 Oxygen Delivery Room Air Room Air 06/16/23 12:00 Temperature Pulse Rate 81 Respiratory Rate Blood Pressure Pulse Oximetry Oxygen Delivery Intake/Output Intake/Output: Intake & Output 06/13/23 06/14/23 06/15/23 06/16/23 23:59 23:59 23:59 23:59 Intake Total 840 2080 2970.0 623.8 Output Total 1700 1250 1800 800 Balance -542 510 2128.0 -176.2 Meds/Results Medications: Active Medications Generic Name Dose Route Start Last Admin
--- NOTE | 2023-06-16 14:06 | PM.PNNEP ---
Progress Note: A&P Assessment and Plan (1) Chronic kidney disease (CKD), stage V: Code(s): N18.5 - Chronic kidney disease, stage 5 Status: Chronic Assessment and Plan: recent admission for TABATHA/ARF on CKD due to obstructive uropathy/urinary retention/bilateral hydronephrosis Creatinine had improved from around 5 to around 4.1 discharge. Now his creatinine is down to 2.7. He is not eating at all. Will continue IV fluids at 75 an hour for now. His sodium level looks okay with so will continue saline. (2) Cerebrovascular accident: Code(s): I63.9 - Cerebral infarction, unspecified Status: Acute Assessment and Plan: as noted by imaging to date Neurology recommendations noted assuming no bleeding issues/concerns; not opposed to DAPT (3) Chronic anemia: Code(s): D64.9 - Anemia, unspecified Status: Chronic Assessment and Plan: possibly related to underlying CKD Hemoglobin 9.4 today. Hemoglobin holding its own without ANGEL. (4) Hypertension: Code(s): I10 - Essential (primary) hypertension Status: Chronic Assessment and Plan: Blood pressure running 130-161. With recent stroke we do not want to over control the blood pressure. Subjective Date/time seen: 06/16/23 14:06 Interval history: Patient is awake. Family in the room. He still does not have much of an appetite. Exam Narrative: General: elderly but WD/WN male in NAD Heart: normal S1 and S2; no rub or gallop Lungs: clear to auscultation Abdomen: soft, nontender, nondistended, positive bowel sounds Extremities: no edema Skin: No rash or subQ nodules Objective Data Vital Signs Vital Signs: Vital Signs - 24 hr 06/15/23 14:40 06/15/23 16:00 06/15/23 20:20 Temperature 98.2 F 98.0 F Pulse Rate 82 80 84 Respiratory Rate 17 16 Blood Pressure 134/74 144/88 H Pulse Oximetry 99 100 Oxygen Delivery 06/15/23 20:00 06/15/23 21:20 06/16/23 00:00 Temperature Pulse Rate 86 83 Respiratory Rate Blood Pressure Pulse Oximetry Oxygen Delivery Room Air 06/15/23 21:35 06/16/23 04:00 06/16/23 05:16 Temperature 97.9 F Pulse Rate 87 81 Respiratory Rate 14 Blood Pressure 161/84 H Pulse Oximetry 99 98 Oxygen Delivery Room Air 06/16/23 07:37 06/16/23 08:00 06/16/23 08:00 Temperature Pulse Rate 86 Respiratory Rate Blood Pressure Pulse Oximetry 95 Oxygen Delivery Room Air Room Air 06/16/23 12:00 Temperature Pulse Rate 81 Respiratory Rate Blood Pressure Pulse Oximetry Oxygen Delivery Intake/Output Intake/Output: Intake & Output 06/13/23 06/14/23 06/15/23 06/16/23 23:59 23:59 23:59 23:59 Intake Total 840 2080 2970.0 623.8 Output Total 1700 1250 1800 800 Balance -160 560 0721.0 -176.2 Meds/Results Medications: Active Medications Generic Name Dose Route Start Last Admin Trade Name Freq PRN Reason Stop Dose Admin Acetaminophen 650 mg 06/12/23 16:19 Acetaminophen 325 Mg Tablet PO Q4H PRN Mild Pain (1-3) or Fever Hydrocodone Bitart/Acetaminophen 1 tab 06/12/23 16:19 Hydrocodone/Acetaminophen (*Crx) 5-325 Mg Tablet PO Q4H PRN Pain Rated 4-6 Aspirin 81 mg 06/15/23 09:00 06/16/23 08:23 Aspirin 81 Mg Enteric Tablet PO 81 mg QAM CHASIDY Administration Atorvastatin Calcium 40 mg 06/15/23 09:00 06/16/23 08:23 Atorvastatin 40 Mg Tablet PO 40 mg DAILY CHASIDY Administration Clopidogrel Bisulfate 75 mg 06/16/23 09:00 06/16/23 08:23 Clopidogrel Bisulfate 75 Mg Tablet PO 75 mg QAM CHASIDY Administration Sodium Chloride 1,000 mls @ 75 mls/hr 06/14/23 08:00 06/16/23 08:23 Normal Saline Iv IV CONT 75 mls/hr .[id number] CHASIDY Administration Levetiracetam 500 mg 06/12/23 23:35 06/16/23 08:23 Levetiracetam 500 Mg Tablet PO 500 mg Q12HR CHASIDY Administration Levothyroxine Sodium 25 mcg 06/14/23 06:30 06/16/23 05:1
--- NOTE | 2023-06-16 14:07 | PM.IMPN ---
Progress Note: A&P Assessment and Plan (1) Unresponsive episode: Code(s): R40.4 - Transient alteration of awareness Status: Acute (2) Cerebrovascular accident: Code(s): I63.9 - Cerebral infarction, unspecified Status: Acute (3) Urinary retention: Code(s): R33.9 - Retention of urine, unspecified Status: Acute (4) Hypertension: Code(s): I10 - Essential (primary) hypertension Status: Chronic (5) Hyperlipidemia: Code(s): E78.5 - Hyperlipidemia, unspecified Status: Acute Plan 88-year-old male with past medical history TIA, hypertension, hyperlipidemia, hypothyroidism, chronic anemia, urinary retention with bilateral hydronephrosis status post ureter stent placement on June 05 presents with an episode of altered mental status. Admitted on 06/11. #Cerebrovascular accident and syncope -orthostatics negative. -surface echo with grade 1 diastolic dysfunction and negative bubble study. To be discharged on a 30 day event monitor -LDL in HbA1c are at goal -carotid Dopplers with less than 50% stent stenosis in the right and left ICAs. -head CT on admission demonstrating a 12 x 10 mm extra-axial mass at the anterior margin of the right sylvian fissure likely representing a meningioma. Brain MRI demonstrating no significant arterial occlusive disease. 1.3 cm extra-axial mass overlying right sylvian fissure consistent with meningioma. This will need to be followed. -aspirin 81 mg p.o. q.day indefinitely, Plavix 75 mg p.o. q.day x3 weeks, atorvastatin 40 mg p.o. q.h.s. -due to syncopal episode patient is not to drive until he is 6 months free of further episodes. -continue neuro checks. Continue telemetry. -unknown if the patient had a seizure and he was started on Keppra. Hopefully discontinue this will discuss with Neurology. -of note, patient's family report he has had intermittent episodes of confusion at home. He has very limited or oral intake. It appears he has some underlying neurocognitive impairment. His he function improved while being admitted and on continuous saline infusion which support his malnutrition on admission. Fluids will be stopped due to hyperchloremia and dietitian will be consulted. Consider appetite stimulant which the family is okay with. #Chronic kidney disease stage 5 -serum creatinine on 06/14 improved to 3.2. On 06/15 serum creatinine down to 2.7. -management per Nephrology. He was hypotensive on admission. At this time fluids have been discontinued due to hyperchloremic acidosis. Dietitian consult as above. -maintain Ho catheter which is to be taken out at the time of follow-up and stent removal with Urology #Chronic anemia -probably related to underlying CKD. Stable. Defer to Nephrology. #Hypertension -currently controlled. #Hyperlipidemia -atorvastatin added this admission. FEN: Saline lock IV. Heart healthy diet. Dietitian consulted GI prophylaxis: Not indicated DVT prophylaxis: SCDs. Continue to encourage ambulation. Lines: Peripheral IV, Ho catheter. Code Status: DNR. Dispo: Stable. Patient previously lives at home and was being arranged to have rehab at [facility]. Family requested the patient be discharged from hospital to [facility] for rehab in light of his syncope and stroke. Care coordination and PT consulted. Subjective Date/time seen: 06/16/23 14:07 Interval history: No acute overnight events. Patient is 3 children are at bedside and there are no new events to report per them. The patient has no complaints. Review of Systems Review of Systems: All systems reviewed & are unremarkable except as noted in HPI and below (Subjective) Exam Const: General: comfortable and no acute distress Eyes: Pupils: Equal, round and reactive pupils present Neck: Neck: supple Resp: Effort & Inspection: normal respiratory effort Auscultation: clear to auscultation bilaterally Cardio: Rate: regular rate Rh
[2023-06-17] VITALS (8 sets, daily range): BP systolic 127–144; BP diastolic 62–66; PULSE 89–111; RESP 16–20; TEMP 36.1–36.8; O2SAT 98–100; BMI 22.9
[2023-06-17 05:28] LABS: Hematocrit 30.9 % (42.0-52.0); Hemoglobin 9.5 g/dL (14.0-18.0); Mean Corpuscular HGB Conc 30.7 g/dl (32-36); Mean Platelet Volume 10.8 fl (7.4-10.4); Platelet Count Result 279 k/mm3 (150-375); Red Blood Count 3.06 M/mm3 (4.6-6.20); Red Cell Distribution Width 14.9 % (11.5-14.5); White Blood Count 10.6 K/mm3 (4.5-10.0)
[2023-06-17 05:59] LABS: Albumin Level 3.2 g/dL (3.5-5.1); Anion Gap 9 mmol/L (4-12); Blood Urea Nitrogen 43 mg/dL (9-20); Calcium 8.4 mg/dL (8.4-10.2); Carbon Dioxide 13 mmol/L (22-30); Chloride 116 mmol/L (98-107); Estimated CRCL calculation 19 ml/min; Estimated Glomerular Filt Rate 24; Glucose 91 mg/dL (65-110); Phosphorus 3.9 mg/dL (2.5-4.5); Potassium 4.5 mmol/L (3.4-5.0); Sodium 138 mmol/L (137-145)
[2023-06-17] MEDS: LEVOTHYROXINE SODIUM 25 MCG TABLET PO (06:05)
[2023-06-17] MEDS: ASPIRIN 81 MG ENTERIC TABLET PO (08:04)
[2023-06-17] MEDS: levETIRAcetam 500 MG TABLET PO ×2 (08:04→20:22)
[2023-06-17] MEDS: ATORVASTATIN 40 MG TABLET PO (08:04)
[2023-06-17] MEDS: CLOPIDOGREL BISULFATE 75 MG TABLET PO (08:04)
[2023-06-17] MEDS: SODIUM BICARBONATE TAB 650 MG TABLET 1300 MG PO ×2 (08:05→17:10)
[2023-06-17] MEDS: TAMSULOSIN HCL 0.4 MG CAPSULE PO (08:05)
--- NOTE | 2023-06-17 10:21 | PM.PNNEP ---
Progress Note: A&P Assessment and Plan (1) Chronic kidney disease, stage IV (severe): Code(s): N18.4 - Chronic kidney disease, stage 4 (severe) Status: Acute Assessment and Plan: recent admission for TABATHA/ARF on CKD due to obstructive uropathy/urinary retention/bilateral hydronephrosis creatinine had improved from around 5 to around 4.1 on that discharge. creatinine improving -- down to 2.5mg/dl by AM labs. was on IVFs due to poor oral intake would not be opposed to liberalizing diet if this helps improve oral intake follow trend of labs and UOP (2) Cerebrovascular accident: Code(s): I63.9 - Cerebral infarction, unspecified Status: Acute Assessment and Plan: as noted by imaging to date Neurology recommendations noted continue supportive therapy (3) Metabolic acidosis: Code(s): E87.20 - Acidosis, unspecified Status: Acute Assessment and Plan: due to underlying CKD and previous use of normal saline IVFs start sodium bicarbonate to compensate follow CO2 levels (4) Chronic anemia: Code(s): D64.9 - Anemia, unspecified Status: Chronic Assessment and Plan: possibly related to underlying CKD no need for ANGEL follow trend of H/H (5) Hypertension: Code(s): I10 - Essential (primary) hypertension Status: Chronic Assessment and Plan: reasonable control follow trend of hemodynamics Will continue to follow. Subjective Date/time seen: 06/17/23 10:21 Interval history: Follow-up for chronic kidney disease. Chart reviewed since last seen -- renal function better with IVFs arguing a component of volume depletion (presumably from poor oral intake); acidosis worse (likely secondary to IVFs); no apparent distress noted at the time of my visit; oral intake remains poor -- he states that he does not like the hospital food. Exam Narrative: General: elderly but WD/WN male in NAD Heart: normal S1 and S2; no rub Lungs: clear to auscultation Abdomen: soft, nontender, nondistended, positive bowel sounds Extremities: no edema Skin: warm and dry Objective Data Vital Signs Vital Signs: Vital Signs Temp Pulse Resp BP Pulse Ox O2 Del Method 06/17/23 08:00 96 06/17/23 08:35 Room Air 06/17/23 04:46 97.8 F 95 16 139/62 98 06/17/23 04:00 98 06/17/23 00:00 92 06/16/23 20:00 93 06/16/23 20:00 95 16 99 Room Air 06/16/23 20:13 97.6 F 95 16 150/86 H 99 06/16/23 16:54 97.7 F 88 16 158/71 H 100 06/16/23 16:00 111 H Intake/Output Intake/Output: Intake & Output 06/14/23 06/15/23 06/16/23 06/17/23 23:59 23:59 23:59 23:59 Intake Total 2080 2970.0 823.8 560 Output Total 1250 1800 1900 650 Balance 830 1170.0 -1076.2 -90 Meds/Results Medications: Active Medications Generic Name Dose Route Start Last Admin Trade Name Freq PRN Reason Stop Dose Admin Acetaminophen 650 mg 06/12/23 16:19 Acetaminophen 325 Mg Tablet PO Q4H PRN Mild Pain (1-3) or Fever Hydrocodone Bitart/Acetaminophen 1 tab 06/12/23 16:19 Hydrocodone/Acetaminophen (*Crx) 5-325 Mg Tablet PO Q4H PRN Pain Rated 4-6 Aspirin 81 mg 06/15/23 09:00 06/17/23 08:04 Aspirin 81 Mg Enteric Tablet PO 81 mg QAM CHASIDY Administration Atorvastatin Calcium 40 mg 06/15/23 09:00 06/17/23 08:04 Atorvastatin 40 Mg Tablet PO 40 mg DAILY CHASIDY Administration Clopidogrel Bisulfate 75 mg 06/16/23 09:00 06/17/23 08:04 Clopidogrel Bisulfate 75 Mg Tablet PO 75 mg QAM CHASIDY Administration Levetiracetam 500 mg 06/12/23 23:35 06/17/23 08:04 Levetiracetam 500 Mg Tablet PO 500 mg Q12HR CHASIDY Administration Levothyroxine Sodium 25 mcg 06/14/23 06:30 06/17/23 06:05 Levothyroxine Sodium 25 Mcg Tablet PO 25 mcg DAILY@0630 CHASIDY Administration Ondansetron HCl 4 mg 06/12/23 16:19 Ondansetron Inj 4 Mg/2 Ml Vial
--- NOTE | 2023-06-17 10:21 | P.PNNP_ITS ---
Progress Note: A&P Assessment and Plan (1) Chronic kidney disease, stage IV (severe): Code(s): N18.4 - Chronic kidney disease, stage 4 (severe) Status: Acute Assessment and Plan: * recent admission for TABATHA/ARF on CKD due to obstructive uropathy/urinary retention/bilateral hydronephrosis * creatinine had improved from around 5 to around 4.1 on that discharge. * creatinine improving -- down to 2.5mg/dl by AM labs. * was on IVFs due to poor oral intake * would not be opposed to liberalizing diet if this helps improve oral intake * follow trend of labs and UOP (2) Cerebrovascular accident: Code(s): I63.9 - Cerebral infarction, unspecified Status: Acute Assessment and Plan: * as noted by imaging to date * Neurology recommendations noted * continue supportive therapy (3) Metabolic acidosis: Code(s): E87.20 - Acidosis, unspecified Status: Acute Assessment and Plan: * due to underlying CKD and previous use of normal saline IVFs * start sodium bicarbonate to compensate * follow CO2 levels (4) Chronic anemia: Code(s): D64.9 - Anemia, unspecified Status: Chronic Assessment and Plan: * possibly related to underlying CKD * no need for ANGEL * follow trend of H/H (5) Hypertension: Code(s): I10 - Essential (primary) hypertension Status: Chronic Assessment and Plan: * reasonable control * follow trend of hemodynamics Will continue to follow. Subjective Date/time seen: 06/17/23 10:21 Interval history: Follow-up for chronic kidney disease. Chart reviewed since last seen -- renal function better with IVFs arguing a component of volume depletion (presumably from poor oral intake); acidosis worse (likely secondary to IVFs); no apparent distress noted at the time of my visit; oral intake remains poor -- he states that he does not like the hospital food. Exam Narrative: General: elderly but WD/WN male in NAD Heart: normal S1 and S2; no rub Lungs: clear to auscultation Abdomen: soft, nontender, nondistended, positive bowel sounds Extremities: no edema Skin: warm and dry Objective Data Vital Signs Vital Signs: Vital Signs Temp Pulse Resp BP Pulse Ox O2 Del Method 06/17/23 08:00 96 06/17/23 08:35 Room Air 04/22/24 04:46 97.8 F 95 16 139/62 98 06/17/23 04:00 98 06/17/23 00:00 92 06/16/23 20:00 93 06/16/23 20:00 95 16 99 Room Air 06/16/23 20:13 97.6 F 95 16 150/86 H 99 06/16/23 16:54 97.7 F 88 16 158/71 H 100 06/16/23 16:00 111 H Intake/Output Intake/Output: Intake & Output 06/14/23 06/15/23 06/16/23 06/17/23 23:59 23:59 23:59 23:59 Intake Total 2080 2970.0 823.8 560 Output Total 1250 1800 1900 650 Balance 830 1170.0 -1076.2 -90 Meds/Results Medications: Active Medications Generic Name Dose Route Start Last Admin Trade Name Freq PRN Reason Stop Dose Admin Acetaminophen 650 mg 06/12/23 16:19 Acetaminophen 325 Mg Tablet PO Q4H PRN Mild Pain (1-3) or Fever Hydrocodone Bitart/Acetaminophen 1 tab 06/12/23 16:19
--- NOTE | 2023-06-17 10:23 | PM.IMPN ---
Progress Note: A&P Assessment and Plan (1) Unresponsive episode: Code(s): R40.4 - Transient alteration of awareness Status: Acute (2) Cerebrovascular accident: Code(s): I63.9 - Cerebral infarction, unspecified Status: Acute (3) Urinary retention: Code(s): R33.9 - Retention of urine, unspecified Status: Acute (4) Hypertension: Code(s): I10 - Essential (primary) hypertension Status: Chronic (5) Hyperlipidemia: Code(s): E78.5 - Hyperlipidemia, unspecified Status: Acute Plan 88-year-old male with past medical history TIA, hypertension, hyperlipidemia, hypothyroidism, chronic anemia, urinary retention with bilateral hydronephrosis status post ureter stent placement on June 05 presents with an episode of altered mental status. Admitted on 06/11. #Cerebrovascular accident and syncope -orthostatics negative. -surface echo with grade 1 diastolic dysfunction and negative bubble study. To be discharged on a 30 day event monitor -LDL in HbA1c are at goal -carotid Dopplers with less than 50% stent stenosis in the right and left ICAs. -head CT on admission demonstrating a 12 x 10 mm extra-axial mass at the anterior margin of the right sylvian fissure likely representing a meningioma. Brain MRI demonstrating no significant arterial occlusive disease. 1.3 cm extra-axial mass overlying right sylvian fissure consistent with meningioma. This will need to be followed. -aspirin 81 mg p.o. q.day indefinitely, Plavix 75 mg p.o. q.day x3 weeks, atorvastatin 40 mg p.o. q.h.s. -due to syncopal episode patient is not to drive until he is 6 months free of further episodes. -continue neuro checks. Continue telemetry. -unknown if the patient had a seizure and he was started on Keppra. Hopefully discontinue this will discuss with Neurology. -of note, patient's family report he has had intermittent episodes of confusion at home. He has very limited or oral intake. It appears he has some underlying neurocognitive impairment. His he function improved while being admitted and on continuous saline infusion which support his malnutrition on admission. Fluids will be stopped due to hyperchloremia and dietitian will be consulted. Consider appetite stimulant which the family is okay with. #Chronic kidney disease stage 5 -serum creatinine on 06/14 improved to 3.2. On 06/15 serum creatinine down to 2.7. -management per Nephrology. He was hypotensive on admission. At this time fluids have been discontinued due to hyperchloremic acidosis. Dietitian consult as above. -maintain Ho catheter which is to be taken out at the time of follow-up and stent removal with Urology #Chronic anemia -probably related to underlying CKD. Stable. Defer to Nephrology. #Hypertension -currently controlled. #Hyperlipidemia -atorvastatin added this admission. FEN: Saline lock IV. Heart healthy diet. Dietitian consulted GI prophylaxis: Not indicated DVT prophylaxis: SCDs. Continue to encourage ambulation. Lines: Peripheral IV, Ho catheter. Code Status: DNR. Dispo: Stable. Patient previously lives at home and was being arranged to have rehab at [place]. Family requested the patient be discharged from hospital to [place] for rehab in light of his syncope and stroke. Care coordination and PT consulted. Subjective Date/time seen: 06/17/23 10:23 Interval history: I saw and examined the patient and bedside. Patient has no issue or event overnight, patient is alert oriented x3, able to moving all extremities. Denies headache, focal weakness, patient afebrile, blood pressure stable, Exam Narrative: General:?Well-developed, nontoxic-appearing gentleman sitting up in bed in no acute distress. Weight: 70.9 kg. BMI: 23.1. HEENT:??PERRL, EOMI. Sclera anicteric.? Oral mucosa moist. Neck:??Supple. No bruits. Respiratory:?Lungs are clear to auscultation bilaterally. Cardiovascular:??Regular rate a
--- NOTE | 2023-06-17 11:50 | PCPTNOTE ---
Attempted to see patient for PT, however patient was working with OT.
[2023-06-18] VITALS: PULSE 96
[2023-06-18 04:00] VITALS: PULSE 95
[2023-06-18 04:55] VITALS: BP 127/72; PULSE 86; RESP 20; TEMP 37; O2SAT 98
[2023-06-18] MEDS: LEVOTHYROXINE SODIUM 25 MCG TABLET PO (06:03)
[2023-06-18 06:50] LABS: Albumin Level 3.1 g/dL (3.5-5.1); Anion Gap 7 mmol/L (4-12); Blood Urea Nitrogen 46 mg/dL (9-20); Calcium 8.7 mg/dL (8.4-10.2); Carbon Dioxide 17 mmol/L (22-30); Chloride 115 mmol/L (98-107); Estimated CRCL calculation 18 ml/min; Estimated Glomerular Filt Rate 23; Glucose 109 mg/dL (65-110); Phosphorus 2.9 mg/dL (2.5-4.5); Potassium 4.4 mmol/L (3.4-5.0); Sodium 139 mmol/L (137-145)
--- NOTE | 2023-06-18 07:57 | PM.IMPN ---
Progress Note: A&P Assessment and Plan (1) Unresponsive episode: Code(s): R40.4 - Transient alteration of awareness Status: Acute (2) Cerebrovascular accident: Code(s): I63.9 - Cerebral infarction, unspecified Status: Acute (3) Urinary retention: Code(s): R33.9 - Retention of urine, unspecified Status: Acute (4) Hypertension: Code(s): I10 - Essential (primary) hypertension Status: Chronic (5) Hyperlipidemia: Code(s): E78.5 - Hyperlipidemia, unspecified Status: Acute Plan 88-year-old male with past medical history TIA, hypertension, hyperlipidemia, hypothyroidism, chronic anemia, urinary retention with bilateral hydronephrosis status post ureter stent placement on June 05 presents with an episode of altered mental status. Admitted on 06/11. #Cerebrovascular accident , seizure and syncope -orthostatics negative. -surface echo with grade 1 diastolic dysfunction and negative bubble study. To be discharged on a 30 day event monitor -LDL in HbA1c are at goal -carotid Dopplers with less than 50% stent stenosis in the right and left ICAs. -head CT on admission demonstrating a 12 x 10 mm extra-axial mass at the anterior margin of the right sylvian fissure likely representing a meningioma. Brain MRI demonstrating no significant arterial occlusive disease. 1.3 cm extra-axial mass overlying right sylvian fissure consistent with meningioma. This will need to be followed. -aspirin 81 mg p.o. q.day indefinitely, Plavix 75 mg p.o. q.day x3 weeks, atorvastatin 40 mg p.o. q.h.s. -due to syncopal episode patient is not to drive until he is 6 months free of further episodes. -continue neuro checks. Continue telemetry. 06/17 patient received Keppra IV during hospitalization, changed to Keppra 500 mg b.i.d. p.o. per neurologist, continue aspirin 81 mg daily p.o., Plavix 75 mg daily p.o., and Lipitor 40 mg daily p.o. at discharge #Chronic kidney disease stage 5 and metabolic acidosis -serum creatinine on 06/14 improved to 3.2. On 06/15 serum creatinine down to 2.7. -management per Nephrology. He was hypotensive on admission. At this time fluids have been discontinued due to hyperchloremic acidosis. Dietitian consult as above. -maintain Ho catheter which is to be taken out at the time of follow-up and stent removal with Urology Patient received fluid resuscitation, kidney function is improving , creatinine 2.6 today, metabolic acidosis partially corrected continue sodium recommended p.o. at discharge #Chronic anemia -probably related to underlying CKD. Stable. Defer to Nephrology. no obvious bleeding #Hypertension -currently controlled without hypertension medication Continue home hypertension medications a discharge, may resume hypertension medication per primary care doctor after evaluation #Hyperlipidemia -atorvastatin added this admission. FEN: Saline lock IV. Heart healthy diet. Dietitian consulted GI prophylaxis: Not indicated DVT prophylaxis: SCDs. Continue to encourage ambulation. Lines: Peripheral IV, Ho catheter. Code Status: DNR. Dispo: Stable. Patient previously lives at home and was being arranged to have rehab at [place]. Family requested the patient be discharged from hospital to [place] for rehab in light of his syncope and stroke. Care coordination and PT consulted. Subjective Date/time seen: 06/18/23 07:57 Interval history: I saw and exam patient today, patient felt comfortable, denies headache, chest pain, shortness of breath, nausea vomiting diarrhea no new issue and and even overnight. Patient afebrile, blood pressure stable, creatinine is trending down Exam Narrative: General:?Well-developed, nontoxic-appearing gentleman sitting up in bed in no acute distress. Weight: 70.9 kg. BMI: 23.1. HEENT:??PERRL, EOMI. Sclera anicteric.? Oral mucosa moist. Neck:??Supple. No bruits. Respiratory:?Lungs are clear to auscultation
[2023-06-18 08:00] VITALS: PULSE 88
[2023-06-18] MEDS: ATORVASTATIN 40 MG TABLET PO (08:02)
[2023-06-18] MEDS: ASPIRIN 81 MG ENTERIC TABLET PO (08:02)
[2023-06-18] MEDS: TAMSULOSIN HCL 0.4 MG CAPSULE PO (08:02)
[2023-06-18] MEDS: levETIRAcetam 500 MG TABLET PO (08:02)
[2023-06-18] MEDS: CLOPIDOGREL BISULFATE 75 MG TABLET PO (08:02)
[2023-06-18] MEDS: SODIUM BICARBONATE TAB 650 MG TABLET PO (08:02)
[2023-06-18 08:35] VITALS: PULSE 99; O2SAT 95
[2023-06-18 12:00] VITALS: PULSE 102
--- NOTE | 2023-06-18 12:06 | PM.PNNEP ---
Progress Note: A&P Assessment and Plan (1) Chronic kidney disease, stage IV (severe): Code(s): N18.4 - Chronic kidney disease, stage 4 (severe) Status: Acute Assessment and Plan: recent admission for TABATHA/ARF on CKD due to obstructive uropathy/urinary retention/bilateral hydronephrosis creatinine had improved from around 5 to around 4.1 on that discharge. creatinine improving -- down to 2.6mg/dl by AM labs. was on IVFs due to poor oral intake diet has been liberalized follow trend of labs and UOP (2) Cerebrovascular accident: Code(s): I63.9 - Cerebral infarction, unspecified Status: Acute Assessment and Plan: as noted by imaging to date Neurology recommendations noted continue supportive therapy (3) Metabolic acidosis: Code(s): E87.20 - Acidosis, unspecified Status: Acute Assessment and Plan: due to underlying CKD and previous use of normal saline IVFs started on sodium bicarbonate to compensate follow CO2 levels (4) Chronic anemia: Code(s): D64.9 - Anemia, unspecified Status: Chronic Assessment and Plan: possibly related to underlying CKD no need for ANGEL follow trend of H/H (5) Hypertension: Code(s): I10 - Essential (primary) hypertension Status: Chronic Assessment and Plan: reasonable control follow trend of hemodynamics Will continue to follow. Subjective Date/time seen: 06/18/23 12:06 Interval history: Follow-up for chronic kidney disease. No apparent distress noted at this time; overall, he reports that he feels well in general; renal function stable if not better by recent testing; appetites still suboptimal but diet has been liberalized in an effort to get him to take more oral intake; no issues/events overnight or earlier this morning. Exam Narrative: General: elderly but WD/WN male in NAD Heart: normal S1 and S2; no rub Lungs: clear to auscultation Abdomen: soft, nontender, nondistended, positive bowel sounds Extremities: no edema Skin: warm and intact Objective Data Vital Signs Vital Signs: Vital Signs Temp Pulse Resp BP Pulse Ox O2 Del Method 06/18/23 12:00 102 H 06/18/23 08:00 88 06/18/23 08:00 Room Air 06/18/23 08:35 99 95 Room Air 06/18/23 04:55 98.6 F 86 20 127/72 98 04/23/24 04:00 95 06/18/23 00:00 96 06/17/23 20:00 89 06/17/23 20:00 96.9 F L 91 20 144/66 H 99 06/17/23 20:00 Room Air Intake/Output Intake/Output: Intake & Output 06/15/23 06/16/23 06/17/23 06/18/23 23:59 23:59 23:59 23:59 Intake Total 2970.0 823.8 1310 680 Output Total 1800 1900 1300 550 Balance 1170.0 -1076.2 10 130 Meds/Results Medications: Medications: Active Medications Generic Name Dose Route Start Last Admin ? Trade Name Freq? PRN Reason Stop Dose Admin Acetaminophen ?650 mg ?06/12/23 16:19 ? ? Acetaminophen 325 Mg Tablet ?PO ?Q4H PRN ?Mild Pain (1-3) or Fever ? ? Hydrocodone Bitart/Acetaminophen ?1 tab ?06/12/23 16:19 ? ? Hydrocodone/Acetaminophen (*Crx) 5-325 Mg Tablet ?PO ?Q4H PRN ?Pain Rated 4-6 ? ? Aspirin ?81 mg ?06/15/23 09:00 ?06/17/23 08:04 ? Aspirin 81 Mg Enteric Tablet ?PO ? ?81 mg ? ?QAM CHASIDY ? ?Administration Atorvastatin Calcium ?40 mg ?06/15/23 09:00 ?06/17/23 08:04 ? Atorvastatin 40 Mg Tablet ?PO ? ?40 mg ? ?DAILY CHASIDY ? ?Administration Clopidogrel Bisulfate ?75 mg ?06/16/23 09:00 ?06/17/23 08:04 ? Clopidogrel Bisulfate 75 Mg Tablet ?PO ? ?75 mg ? ?QAM CHASIDY ? ?Administration Levetiracetam ?500 mg ?06/12/23 23:35 ?06/17/23 20:22 ? Levetiracetam 500 Mg Tablet ?PO ? ?500 mg ? ?Q12HR CHASIDY ? ?Administration Levothyroxine Sodium ?25 mcg ?06/14/23 06:30 ?06/18/23 06:03 ? Levothyroxine Sodium 25 Mcg Tablet ?PO ? ?25 mcg ? ?DAILY@0630 CHASIDY ? ?Administration Ondansetron HCl ?4 mg ?04/17/24 16:19 ? ? Ondansetron Inj 4 Mg/2 Ml Vial ?IV PUSH ?Q4H PRN ?
--- NOTE | 2023-06-18 12:06 | P.PNNP_ITS ---
Progress Note: A&P Assessment and Plan (1) Chronic kidney disease, stage IV (severe): Code(s): N18.4 - Chronic kidney disease, stage 4 (severe) Status: Acute Assessment and Plan: * recent admission for TABATHA/ARF on CKD due to obstructive uropathy/urinary retention/bilateral hydronephrosis * creatinine had improved from around 5 to around 4.1 on that discharge. * creatinine improving -- down to 2.6mg/dl by AM labs. * was on IVFs due to poor oral intake * diet has been liberalized * follow trend of labs and UOP (2) Cerebrovascular accident: Code(s): I63.9 - Cerebral infarction, unspecified Status: Acute Assessment and Plan: * as noted by imaging to date * Neurology recommendations noted * continue supportive therapy (3) Metabolic acidosis: Code(s): E87.20 - Acidosis, unspecified Status: Acute Assessment and Plan: * due to underlying CKD and previous use of normal saline IVFs * started on sodium bicarbonate to compensate * follow CO2 levels (4) Chronic anemia: Code(s): D64.9 - Anemia, unspecified Status: Chronic Assessment and Plan: * possibly related to underlying CKD * no need for ANGEL * follow trend of H/H (5) Hypertension: Code(s): I10 - Essential (primary) hypertension Status: Chronic Assessment and Plan: * reasonable control * follow trend of hemodynamics Will continue to follow. Subjective Date/time seen: 06/18/23 12:06 Interval history: Follow-up for chronic kidney disease. No apparent distress noted at this time; overall, he reports that he feels well in general; renal function stable if not better by recent testing; appetites still suboptimal but diet has been liberalized in an effort to get him to take more oral intake; no issues/events overnight or earlier this morning. Exam Narrative: General: elderly but WD/WN male in NAD Heart: normal S1 and S2; no rub Lungs: clear to auscultation Abdomen: soft, nontender, nondistended, positive bowel sounds Extremities: no edema Skin: warm and intact Objective Data Vital Signs Vital Signs: Vital Signs Temp Pulse Resp BP Pulse Ox O2 Del Method 06/18/23 12:00 102 H 06/18/23 08:00 88 06/18/23 08:00 Room Air 06/18/23 08:35 99 95 Room Air 06/18/23 04:55 98.6 F 86 20 127/72 98 06/18/23 04:00 95 06/18/23 00:00 96 06/17/23 20:00 89 06/17/23 20:00 96.9 F L 91 20 144/66 H 99 06/17/23 20:00 Room Air Intake/Output Intake/Output: Intake & Output 06/15/23 06/16/23 06/17/23 06/18/23 23:59 23:59 23:59 23:59 Intake Total 2970.0 823.8 1310 680 Output Total 1800 1900 1300 550 Balance 1170.0 -1076.2 10 130 Meds/Results Medications: Medications: Active Medications Generic Name Dose Route Start Last Admin ? Trade Name Freq? PRN Reason Stop Dose Admin Acetaminophen ?650 mg ?06/12/23 16:19 ? ? Acetaminophen 325 Mg Tablet ?PO ?Q4H PRN ?Mild Pain (1-3) or Fever ? ? Hydrocodone Bitart/Acetaminophen ?1 tab ?06/12/23 1
--- NOTE | 2023-06-18 13:24 | PM.DS ---
DS: Admitting Diagnosis Discharge Date 06/18/23 Admitting Diagnosis (1) Unresponsive episode: ?Code(s): R40.4 - Transient alteration of awareness ?Status:?Acute (2) Cerebrovascular accident: ?Code(s): I63.9 - Cerebral infarction, unspecified ?Status:?Acute (3) Urinary retention: ?Code(s): R33.9 - Retention of urine, unspecified ?Status:?Acute (4) Hypertension: ?Code(s): I10 - Essential (primary) hypertension ?Status:?Chronic (5) Hyperlipidemia: ?Code(s): E78.5 - Hyperlipidemia, unspecified ?Status:?Acute DS: Discharge Diagnosis Discharge Diagnosis (1) Unresponsive episode: Code(s): R40.4 - Transient alteration of awareness Status: Acute (2) Cerebrovascular accident: Code(s): I63.9 - Cerebral infarction, unspecified Status: Acute (3) Urinary retention: Code(s): R33.9 - Retention of urine, unspecified Status: Acute (4) Hypertension: Code(s): I10 - Essential (primary) hypertension Status: Chronic (5) Hyperlipidemia: Code(s): E78.5 - Hyperlipidemia, unspecified Status: Acute DS: Summary Hospital Course Hospital Course: 88-year-old male with past medical history TIA, hypertension, hyperlipidemia, hypothyroidism, chronic anemia, urinary retention with bilateral hydronephrosis status post ureter stent placement on June 05 presents with an episode of altered mental status. Admitted on 06/11. 88-year-old male with past medical history TIA, hypertension, hyperlipidemia, hypothyroidism, chronic anemia, urinary retention with bilateral hydronephrosis status post ureter stent placement on June 05 presents with an episode of altered mental status.? Admitted on 06/11. #Cerebrovascular accident ,? seizure? and syncope -orthostatics negative. -surface echo with grade 1 diastolic dysfunction and negative bubble study.? To be discharged on a 30 day event monitor -LDL in HbA1c are at goal -carotid Dopplers with less than 50% stent stenosis in the right and left ICAs. -head CT on admission demonstrating a 12 x 10 mm extra-axial mass at the anterior margin of the right sylvian fissure likely representing a meningioma.? Brain MRI demonstrating no significant arterial occlusive disease.? 1.3 cm extra-axial mass overlying right sylvian fissure consistent with meningioma.? This will need to be followed. -aspirin 81 mg p.o. q.day indefinitely, Plavix 75 mg p.o. q.day x3 weeks, atorvastatin 40 mg p.o. q.h.s. -due to syncopal episode patient is not to drive until he is 6 months free of further episodes. -neuro checks did revealed new focal deficit Monitored on telemetry, that did not show any significant arrhythmia 06/17? patient received Keppra IV during hospitalization, changed to Keppra 500 mg b.i.d. p.o. per neurologist, ? continue aspirin 81 mg daily p.o., Plavix 75 mg daily p.o., and Lipitor 40 mg daily p.o. at discharge #Chronic kidney disease stage 5 and metabolic acidosis -serum creatinine on 06/14 improved to 3.2.? On 06/15 serum creatinine down to 2.7. -management per Nephrology.? He was hypotensive on admission.? At this time fluids have been discontinued due to hyperchloremic acidosis.? Dietitian consult as above. -maintain Ho catheter which is to be taken out at the time of follow-up and stent removal with Urology Patient received fluid resuscitation, kidney function is improving , creatinine 2.6 today, metabolic acidosis partially corrected ?continue sodium bicarbonate p.o. recommended p.o. at discharge #Chronic anemia -probably related to underlying CKD.? Stable.? Defer to Nephrology. ?no obvious bleeding #Hypertension -currently controlled without hypertension medication Continue home hypertension medications a discharge, may resume hypertension medication per primary care doctor after evaluation #Hyperlipidemia -atorvastatin added this admission. Lines:? Ho catheter. Code Status:? DNR. Dispo:? S
[2023-06-18 13:57] LABS: SARS-CoV-2 RNA PCR Negative (Negative)
== END 2023-06-18 15:10 ==
LOC: ANHED 15:13 → ANH2MED 17:42
PROVIDERS: Internal Medicine Nephrology; Physician Assistant; Psychiatry & Neurology Neurology; Admitting Provider Family Medicine; Emergency Provider Emergency Medicine; PCP Nurse Practitioner; Visit Provider Hospitalist
DX: I63.9 Cerebral infarction, unspecified (principal); R55 Syncope and collapse; R56.9 Unspecified convulsions; R33.9 Retention of urine, unspecified; E87.20 Acidosis, unspecified; I12.0 Hypertensive chronic kidney disease with stage 5 chronic kidney disease or end stage renal disease; N18.5 Chronic kidney disease, stage 5; D63.1 Anemia in chronic kidney disease; E78.5 Hyperlipidemia, unspecified; E03.9 Hypothyroidism, unspecified; Z85.46 Personal history of malignant neoplasm of prostate; Z86.73 Personal history of transient ischemic attack (TIA), and cerebral infarction without residual deficits; Z66 Do not resuscitate; Z11.52 Encounter for screening for COVID-19
CPT/HCPCS: 36415; 70450; 70544; 70553; 71045; 80048; 80053; 80061; 80069; 82306; 82607; 82746; 82948; 83735; 84443; 84484; 85025; 85027; 85610; 85730; 87635; 93005; 93306; 93880; 96360; 96361; 96375; 97110; 97116; 97161; 97165; 97530; 97535; 99285; A9270; A9577; G0378; J7030

== ENCOUNTER 2023-07-05 14:29 | Outpatient (CLI) | payer MEDICARE, SELFPAY ==
[2023-07-05 15:09] LABS: Appearance Urine Cloudy (Clear); Bacteria Urine 3+ /hpf; Bilirubin Urine Negative (Negative); Blood Urine 3+ (Negative); Color Urine Yellow (Yellow); Glucose Urine UA Negative (Negative); Ketones Urine Negative (Negative); Leukocyte Esterase Ur 3+ LEU/UL (Negative); Nitrate Urine Negative (Negative); Non Pathogenic Casts 0-2; Protein Urine 2+ mg/dL (Negative); RBC Urine >100 /hpf (0-2); Specific Grav Ur 1.013 (1.001-1.035); Squamous Epithelial Cell Urine None Seen /hpf (Few); Urobilinogen Urine 0.2 mg/dL (<2.0); WBC Urine >100 /hpf (0-3); pH Urine 5.5 (5.0-9.0)
[2023-07-05 15:36] LABS: Add Urine Microscopic? YES
== END 2023-07-05 14:30 | disposition home or self-care (01) ==
PROVIDERS: PCP Nurse Practitioner; Visit Provider Family Medicine
DX: N39.0 Urinary tract infection, site not specified (principal)
CPT/HCPCS: 81001; 87077; 87086; 87088; 87181

== ENCOUNTER 2023-07-14 10:30 | Outpatient (CLI) | payer MEDICARE, SELFPAY ==
--- NOTE | ~2023-07-14 | MR_ITS ---
EXAMINATION: MR brain/brain stem wo con DATE: 07/14/2023 11:30 INDICATION: Personal history of other healed physical injury. TECHNIQUE: Magnetic resonance imaging (MRI) of the brain and brainstem was performed without intraven ous contrast. COMPARISON: Brain MRI 06/13/2023 FINDINGS: There is no acute ischemic infarct or intracranial hemorrhage. There are scattered areas of nonspecific increased T2-weighted signal intensity in the cerebral white matter. There is an old inf arct involving posterior limb right internal capsule. There is a 13 mm extra-axial mass in right fron totemporal region, consistent with a meningioma. The ventricles are normal in size. The orbits are no rmal. The paranasal sinuses are clear. The mastoid air cells are normal. IMPRESSION: 1. Old infarct involving the posterior limb right internal capsule. 2. 13 mm extra-axial mass in right frontotemporal region, consistent with a meningioma. 3. Stable extensive nonspecific cerebral white matter disease, which likely represents chronic small vessel ischemic disease. Reviewed, dictated and finalized at location A. IMPRESSION: 1. Old infarct involving the posterior limb right internal capsule. 2. 13 mm extra-axial mass in right frontotemporal region, consistent with a men ingioma. 3. Stable extensive nonspecific cerebral white matter disease, which likely rep resents chronic small vessel ischemic disease.
== END 2023-07-14 10:31 | disposition home or self-care (01) ==
PROVIDERS: PCP Nurse Practitioner; Visit Provider Psychiatry & Neurology Neurology
DX: G93.89 Other specified disorders of brain (principal); R90.82 White matter disease, unspecified; I25.2 Old myocardial infarction; Z87.828 Personal history of other (healed) physical injury and trauma
CPT/HCPCS: 70551

== ENCOUNTER 2023-07-20 11:20 | Outpatient (CLI) | payer MEDICARE, SELFPAY ==
[2023-07-20 11:45] LABS: Appearance Urine Cloudy (Clear); Bacteria Urine None Seen /hpf; Bilirubin Urine Negative (Negative); Blood Urine 3+ (Negative); Color Urine Yellow (Yellow); Glucose Urine UA Negative (Negative); Ketones Urine Negative (Negative); Leukocyte Esterase Ur 2+ LEU/UL (Negative); Nitrate Urine Negative (Negative); Non Pathogenic Casts 0-2; Protein Urine 1+ mg/dL (Negative); RBC Urine >100 /hpf (0-2); Specific Grav Ur 1.012 (1.001-1.035); Squamous Epithelial Cell Urine None Seen /hpf (Few); Urobilinogen Urine 0.2 mg/dL (<2.0); WBC Urine 51-100 /hpf (0-3); pH Urine 5.5 (5.0-9.0)
[2023-07-20 11:47] LABS: Add Urine Microscopic? YES
== END 2023-07-20 11:21 | disposition home or self-care (01) ==
PROVIDERS: PCP Nurse Practitioner; Visit Provider Nurse Practitioner
DX: N39.0 Urinary tract infection, site not specified (principal)
CPT/HCPCS: 81001; 87086

== ENCOUNTER 2023-07-23 11:51 | Outpatient (CLI) | payer MEDICARE, SELFPAY ==
[2023-07-23 12:31] LABS: Albumin Level 3.5 g/dL (3.5-5.1); Anion Gap 6 mmol/L (4-12); Blood Urea Nitrogen 43 mg/dL (9-20); Calcium 8.8 mg/dL (8.4-10.2); Carbon Dioxide 23 mmol/L (22-30); Chloride 115 mmol/L (98-107); Cholesterol 111 mg/dL (0-200); Estimated Glomerular Filt Rate 18; Glucose 86 mg/dL (65-110); HDL Direct 26 mg/dL; Potassium 4.5 mmol/L (3.4-5.0); Sodium 144 mmol/L (137-145); Triglycerides 125 mg/dL (<150)
[2023-07-23 12:39] LABS: Complement C3 128 mg/dL (88-165)
[2023-07-23 12:41] LABS: LDL Cholesterol Direct 66 mg/dL
[2023-07-23 12:43] LABS: Parathyroid Intact 25.4 pg/mL (7.5-53.5)
[2023-07-23 12:45] LABS: Creatinine Urine 63.9 mg/dL
[2023-07-23 12:51] LABS: Vitamin D 25 Hydroxy 74.9 ng/mL
[2023-07-23 12:51] LABS: MALB Creatinine Ratio 143.3 mg/g (0-30); Microalbumin Urine Random 91.6 mg/L (0-16.7)
[2023-07-23 12:52] LABS: Free T4 Free Thyroxine 1.16 ng/mL (0.78-2.19)
[2023-07-23 12:58] LABS: Creatinine Urine 62.3 mg/dL; Sodium Urine Random 134 meq/L; Total Protein Urine Random 29 mg/dL; Ur Ttl Prot Creatinine Ratio 0.47 mg/mg (0-0.20)
[2023-07-24 08:13] LABS: Protein, Total 6.1 g/dL (6.1-8.1)
[2023-07-25 02:23] LABS: ANCA Screen NEGATIVE (NEGATIVE)
[2023-07-25 10:53] LABS: Albumin 3.2 g/dL (3.8-4.8); Alpha 1 Globulin 0.3 g/dL (0.2-0.3); Alpha 2 Globulin 0.6 g/dL (0.5-0.9); Beta 1 Globulin 0.5 g/dL (0.4-0.6); Gamma Globulin 1.2 g/dL (0.8-1.7)
[2023-07-25 12:38] LABS: Anti Nuclear Antibody Pattern Nuclear, Homogeneous
[2023-07-25 13:48] LABS: Creatinine, Random Urine 64 mg/dL (20-320); Total Protein/Creatinine Ratio 438 mg/g creat (25-148)
[2023-07-26 13:48] LABS: Anti Glomerular Basement Memb <1.0 AI
== END 2023-07-23 11:52 | disposition home or self-care (01) ==
LOC: ANHLAB 11:52
PROVIDERS: PCP Nurse Practitioner Family; Referring Provider Nurse Practitioner Family; Visit Provider Internal Medicine Nephrology
DX: I12.9 Hypertensive chronic kidney disease with stage 1 through stage 4 chronic kidney disease, or unspecified chronic kidney disease (principal); N18.4 Chronic kidney disease, stage 4 (severe); E55.9 Vitamin D deficiency, unspecified; E78.5 Hyperlipidemia, unspecified; I63.9 Cerebral infarction, unspecified; N13.30 Unspecified hydronephrosis; N25.81 Secondary hyperparathyroidism of renal origin; E03.9 Hypothyroidism, unspecified; E78.1 Pure hyperglyceridemia; Z85.46 Personal history of malignant neoplasm of prostate; Z91.199 Patient's noncompliance with other medical treatment and regimen due to unspecified reason
CPT/HCPCS: 36415; 80061; 80069; 82043; 82306; 82570; 83520; 83970; 84155; 84156; 84165; 84166; 84300; 84439; 84443; 86036; 86038; 86039; 86160; 86225